=== PATIENT | male | born 1970 | race Caucasian/White ===

== ENCOUNTER 2018-06-21 00:36 | Outpatient (CLI) | payer BC, SELFPAY ==
[2018-06-21] MEDS: Omnipaque 350 MG/ML 100 ML BTL IJ (10:08)
[2018-06-21] MEDS: Omnipaque 350 MG/ML 50 ML BTL IJ (10:09)
[2018-06-21] MEDS: Breeza Beverage 473 ML BTL PO ×2 (10:09)
--- NOTE | 2018-06-21 10:14 | DI.CT_ITS ---
SYMPTOM/DIAGNOSIS: RECTAL CA, STAGING EXAM, C20 CHEST, ABDOMEN AND PELVIC CT: CT examination of the chest, abdomen and pelvis was performed with a bolus infusion of 100 cc's of Omnipaque 350 and ingestion of dilute barium. Biphasic hepatic imaging was obtained. The lungs are clear. No pleural effusion. No mediastinal or hilar adenopathy. No evidence of pulmonary embolic disease or other major vascular abnormality of the thorax. No supraclavicular or axillary adenopathy is omar. Liver and spleen appear normal as does the pancreas. No biliary dilatation or gallbladder abnormality is seen. Adrenals and kidneys appear normal. No hydronephrosis or nephrolithiasis. Abdominal aorta is of normal diameter and no major vascular abnormality is identified. No abdominal or pelvic adenopathy is seen. The patient reportedly has a history of rectal carcinoma. There is increased fat attenuation in the pelvis, particularly in the periprostatic fat and there is apparent increased vascular prominence in this area as well. Correlation requested regarding radiotherapy or recent prostatic procedure. Urinary bladder is thick walled and irregular raising the possibility of cystitis. Question eccentric wall thickening of the rectum which may represent the patient 's reported rectal lesion. Small fat containing bilateral inguinal hernias noted. No bony lesion identified on scanning of the chest, abdomen or pelvis. CONCLUSION: 1. No evidence of remote metastatic disease in a patient with reported rectal carcinoma. 2. Apparent pelvic hyperemia with very prominent small vessels in the pelvis, particularly adjacent to the prostate and urinary bladder. Urinary bladder wall thickening noted. Correlation requested regarding inflammatory process of the prostatovesical region or previous radiotherapy.
== END 2018-06-21 00:56 ==
PROVIDERS: PCP Family Medicine; Visit Provider Internal Medicine Hematology & Oncology
DX: C20 Malignant neoplasm of rectum (principal); Z12.9 Encounter for screening for malignant neoplasm, site unspecified; N32.89 Other specified disorders of bladder
CPT/HCPCS: 74177; 71260; J3490; Q9967

== ENCOUNTER 2018-07-02 08:27 | Outpatient (CLI) | payer BC, SELFPAY ==
[2018-07-02 11:17] LABS: Abs Immature Grans 0.01 k/cumm (0.0-0.09); Absolute Basophil Count 0.03 k/cumm (0.0-0.2); Absolute Eosinophil Count 0.39 k/cumm (0.0-0.7); Absolute Lymphocyte Count 1.42 k/cumm (1.2-3.4); Absolute Monocyte Count 0.46 k/cumm (0.11-0.7); Absolute Neutrophil Count 4.65 k/cumm (1.2-6.7); Basophils % 0.4; Eosinophils % 5.6; HCT 46.6 % (40.0-50.0); HGB 15.9 g/dL (13.5-17.5); Immature Grans % 0.1; Lymphocytes % 20.4; Mean Corp. HGB Concentration 34.1 g/dL (32.0-36.0); Mean Corpuscular Hemoglobin 31.7 pg (27.0-33.0); Mean Corpuscular Volume 92.8 fL (80-95); Mean Platelet Volume 10.3 fL (8.0-11.0); Monocytes % 6.6; Neutrophils % 66.9; Platelet Count 258 x1000/uL (130-400); RBC 5.02 m/cumm (4.50-6.00); RBC Distribution Width 12.9 % (11.8-14.1); White Blood Cell Count 6.96 k/cumm (4.4-10.8)
[2018-07-02 11:24] LABS: ALT 58 U/L (12-78); AST 23 U/L (15-37); Albumin 3.8 g/dL (3.4-5.0); Alkaline Phosphatase 84 U/L (46-116); Anion Gap 8.4 mmol/L (3-11); BUN 13 mg/dL (7-18); Bilirubin, Total 0.6 mg/dL (0.2-1.0); CO2 28.6 mmol/L (21.0-32.0); Calcium 8.8 mg/dL (8.5-10.1); Chloride 102 mmol/L (98-107); Glucose 101 mg/dL (70-100); Sodium 139 mmol/L (136-145); Total Protein 7.2 g/dL (6.4-8.2)
[2018-07-03 09:52] LABS: CEA 0.8 ng/ml
== END 2018-07-02 08:47 ==
PROVIDERS: PCP Family Medicine; Visit Provider Internal Medicine Hematology & Oncology
DX: C20 Malignant neoplasm of rectum (principal)
CPT/HCPCS: 36415; 80053; 82378; 85025

== ENCOUNTER 2019-12-19 00:24 | Outpatient (CLI) | payer OTHER, SELFPAY ==
--- NOTE | 2019-12-19 06:51 | DI.CT_ITS ---
EXAM: CT CHEST/ABD/PEL W CLINICAL HISTORY: COLON CA WITH LYMPHADENOPATHY CHEST/ABD ON CT, C18.9, R59..0, R93.89, ABNL CHEST C T. TECHNIQUE: Imaging Protocol: Axial computed tomography images with coronal and sagittal reformatted images were created and reviewed CONTRAST MATERIAL: Intravenous: Omnipaque 350 Contrast volume:100 ml Oral: yes / COMPARISON: CT ABDOMEN/PELVIS from 10/09/2019 CT CHEST from 10/09/2019 FINDINGS: CHEST: Mediastinum and Elenita: There has been considerable interval decrease in size of previously noted hilar and mediastinal adenopathy when compared with the previous exam. The largest node is in the subcari nal region measuring 2 x 2.8 cm compared with 2.6 x 3.1 cm on the previous exam. Pulmonary parenchyma: No consolidation or dominant measurable mass. Pleura: No effusion or pneumothorax. Aorta: Thoracic portion non-dilated. Heart: Nondilated. Bones: No destructive bony lesions. ABDOMEN: Liver: Mild fatty infiltration. No measurable mass. Gallbladder and biliary tract: No radiodense calculus or dilation. Pancreas: Normal density, no abnormal calcifications or inflammatory process. Spleen: Normal. Kidneys: Normal size, contour and axis. No radiodense stones or obstructive uropathy. No masses seen. Adrenal glands: No masses seen. Aorta: Abdominal portion non-dilated. Lymph nodes: There has been slight interval decrease in size of previously noted lymph nodes at the c eliac axis, the largest measuring 15 by 9.5 millimeters compared to 20 x 11 millimeters. PELVIS: Bladder: Symmetric distention, no gross wall thickening. Bowel: No obstruction or bowel wall thickening. No visible mass. Peritoneal cavity: No ascites, collection or mesenteric inflammatory response. Bones: Within normal limits. Reproductive organs: Mildly enlarged prostate. Bilateral fatty containing inguinal hernias. IMPRESSION: Significant interval decrease in size of previously noted hilar and mediastinal adenopathy. Mild int erval decrease in size of adenopathy near the level of the celiac axis. No new sites of metastatic d isease. RADIATION DOSE DELIVERED: Total DLP DATA REPOSITORY: All CT scans at this facility are submitted to the National Radiology Data Registry (NRDR) Dose Index Registry (DIR) with the [employer] (ACR). RADIATION OPTIMIZATION: All CT scans at this facility use at least one of these dose optimization te chniques: automated exposure control; mA and/or kV adjustment per patient size (includes targeted exa ms where dose is matched to clinical indication); or iterative reconstruction.
[2019-12-19] MEDS: Omnipaque 350 MG/ML 100 ML BTL IJ (09:17)
[2019-12-19] MEDS: Normal Saline - Diluent 50 ML VIAL IV (09:28)
== END 2019-12-19 00:44 ==
PROVIDERS: PCP Family Medicine; Visit Provider Family Medicine
DX: C18.9 Malignant neoplasm of colon, unspecified (principal); R59.0 Localized enlarged lymph nodes; R93.89 Abnormal findings on diagnostic imaging of other specified body structures; K76.0 Fatty (change of) liver, not elsewhere classified; N40.0 Benign prostatic hyperplasia without lower urinary tract symptoms
CPT/HCPCS: 74177; 71260; J3490

== ENCOUNTER 2021-09-24 04:23 | Outpatient (CLI) | payer BC, SELFPAY ==
[2021-09-24 09:12] LABS: Calculated LDL 188 mg/dL (<100); Cholesterol 254 mg/dL (<200); HDL Cholesterol 41 mg/dL (40-60); Triglyceride 129 mg/dL (<150)
[2021-09-27 11:12] LABS: HIV-1/2 Ag & Ab Screen Negative (Negative)
[2021-09-27 11:39] LABS: Hepatitis C Ab w Rflx HCV PCR Negative (Negative)
== END 2021-09-24 04:24 | disposition home or self-care (01) ==
LOC: LBO 04:23
PROVIDERS: PCP Family Medicine; Visit Provider Family Medicine
DX: K40.90 Unilateral inguinal hernia, without obstruction or gangrene, not specified as recurrent (principal); K42.9 Umbilical hernia without obstruction or gangrene; Z11.4 Encounter for screening for human immunodeficiency virus [HIV]; Z00.00 Encounter for general adult medical examination without abnormal findings; Z11.59 Encounter for screening for other viral diseases
CPT/HCPCS: 36415; 80061; 86803; 87389

== ENCOUNTER 2023-12-12 06:28 | Day surgery (SDC) | payer BC, SELFPAY ==
--- NOTE | 2023-12-11 12:43 | HPE_ITS ---
Date of service: 12/12/23 Time of Service: 07:33 Assessment and Plan Assessment and plan (1) Elevated BP without diagnosis of hypertension: Status: Acute (2) Hyperlipemia, mixed: Status: Acute (3) Umbilical hernia without obstruction and without gangrene: Status: Chronic (4) Right inguinal hernia: Status: Chronic Assessment and plan: Risks of the surgery include but are not limited to: Bleeding/infection/pneumonia/damage to blood vessels or bladder or?bowels/blood clots or PE/chronic pain/urinary retention/chronic numbness/reoccurrence/reaction to mesh requiring removal/damage to testicle or sterility/complications of anesthesia.?We also discussed the possibility of postop urinary retention or bruising. ?The pt will have a pre-Op PE to ensure fitness for anesthesia, and preOp cardiac testing as deemed necessary. ?The procedure will be done with abx and under sterile conditions. This is an outpt day surgery.? ??The pt requires a ride home from surgery and someone to stay with the pt for 24 hrs after anesthesia.? No lifting over 5 pounds for 2-3 weeks after surgery.? Also take Miralax postop to avoid constipation. (5) Hx of malignant neoplasm of rectum: History of Present Illness Narrative: Patient is here today for umbilical and right inguinal hernia.? They not having any chest pain or shortness of breath, currently.? They are not experiencing any fever or chills.? They deny any productive cough or upper respiratory tract infection signs or symptoms.? They are not having abdominal pain, or nausea and vomiting.? They have not had any changes in medications, past medical history or past surgical history since previously being seen in the office. They have not had any accidents or have been in the ER since the clinic pre-operative evaluation. ??I reviewed the procedure with the patient today, including risks and benefits of the procedure, and what they could expect at home for recovery.? All questions are answered to the patient?s satisfaction today, and they are stable to proceed with the proposed procedure. (1) Hernia: (2) Hyperlipemia, mixed: (3) Elevated BP without diagnosis of hypertension: (4) Right inguinal hernia: (5) Umbilical hernia without obstruction and without gangrene: (6) Hx of malignant neoplasm of rectum: I discussed the nature of inguinal hernias with the pt and how they form, and consequences of incarceration.? We discussed the warning signs of incarcerations (Severe pain/hardness and inability to reduce the hernia/vomiting/redness and fever) ?and when/how to seek medical attention (our office/PCP or ED).? ?I discussed the surgery in detail and the complications related to the surgery and the anesthesia.? I do recommend that the pt have a nerve block for postop pain control.? We also discussed multi-modality pain management.? Pt. expressed understanding; all questions were answered to the patient satisfaction and they do wish to proceed with surgery.? Patient was given an educational booklet & and a copy of the postop instructions and expressed understanding of how to care for themselves after surgery. Risks of the surgery include but are not limited to: Bleeding/infection/pneumonia/damage to blood vessels or bladder or?bowels/blood clots or PE/chronic pain/urinary retention/chronic numbness/reoccurren ce/reaction to mesh requiring removal/damage to testicle or sterility/complications of anesthesia.?We also discussed the possibility of postop urinary retention or bruising. ?The pt will have a pre-Op PE to ensure fitness for anesthesia, and preOp cardiac testing as deemed necessary. ?The procedure will be done with abx and under sterile conditions. This is an outpt day surgery.? ??The pt requires a ride home from surgery and someone to stay with the pt for 24 hrs after anesthesia.? No lifting over 5 pounds for 2-3 weeks after surgery.? Also take Miralax postop to avoid constipation. (7) History of rectal surgery: - Pt f/u closely w/ Delfina RN: Pt states he was seen about a year ago for RIH, now has umbilical one also. RIH is not bothering, the umbilical one currently he has not pain but has had 2 times that he had pain and pushed it back in. CT 2019: DORIAN: Bladder: Symmetric distention, no gross wall thickening. Bowel: No obstruction or bowel wall thickening. No visible mass. Peritoneal cavity: No ascites, collection or mesenteric inflammatory response. Bones: Within normal limits. Reproductive organs: Mildly enlarged prostate. Bilateral fatty containing inguinal hernias. Surgical consult 2021 Mr. Pitt is a very pleasant 51-year-old gentleman who is here today because he has a right inguinal hernia as well as an umbilical hernia which has been causing him some discomfort. He noticed them first back in 2018. At that time he was also diagnosed with rectal cancer. He underwent transanal resection x2 and has done very well. He has not needed chemo or radiation. Because of his rectal cancer the inguinal hernia and umbilical hernia issues were postponed. 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 He does have to do some lifting of tires and equipment which is quite heavy. He can feel the hernia especially when he is going to the bathroom and he is a little constipated. He has not had any changes in bowel habits. He has had no urinary symptoms. Patient is here today for follow-up from his surgical consult in 2021. I did review his CT from 2019. Again he was diagnosed with rectal cancer and underwent transanal resection and treatment down at [facility]. He continues to follow-up therefore ongoing treatment. He has a bilateral inguinal and umbilical hernia. Twice this year he has noted pain at the umbilical site. This has soft and easily reduced. Occasionally he will notice pain at the right inguinal hernia. There is a slight bulge in both the right inguinal and at the umbilical hernia sites. The left side has been completely asymptomatic. He has never had any hernia surgery in the past. He is is not on steroids. He is not a smoker. He is not diabetic. He had no problems with anesthesia with any of his surgeries. He has never had a heart attack or a stroke. Review of Systems All systems reviewed & are unremarkable except as noted in HPI and below PFSH All Active Problems Nasal congestion (Acute) Lymphedema of face due to acne vulgaris (Acute) Nasal polyps (Acute) Hyperlipemia, mixed (Acute) Elevated BP without diagnosis of hypertension (Acute) Right inguinal hernia (Chronic) Umbilical hernia without obstruction and without gangrene (Chronic) Medical History Rosacea, acne FH: prostate cancer Hx of malignant neoplasm of rectum (~2018) stage 2, treated with surgery only, [facility] History of rectal surgery s/p transrectal excision x2 Nasal Polpectomy Family History Mother Stroke Hypertension Father Hyperlipidemia Prostate cancer Brother Stroke Maternal Grandmother Stroke Social History (Updated 10/07/23 @ 09:33 by Columba Garza) Smoking/Tobacco Use Status: Never Second Hand Exposure: Yes Smoking risk assessment performed?: Yes Alcohol Intake: current Alcohol Intake frequency: a few times a week Alcohol type: beer, wine and hard liquor Drug use: Rarely Substance use type: marijuana Adopted: No Caregiver/Support person: No Foster care: No Household members: spouse, family and children Housing: house Number of Children: 1 Communication Needs: Corrective Lenses Education Level: college Do you need help understanding health information?: Rarely 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 [employer] Pets and animals: Yes Pets and animals: cat(s), dog(s) and farm animals Sexually active: Yes Do you think of yourself as: straight/heterosexual Current gender identity: male What is your relationship status?: How often do you talk on the phone with friends or family?: three or more times per week How often do you get together with friends or relatives?: twice per week How often do you attend orthodox or mormonism services?: 1-3 times per year Do you belong to any clubs or organized social groups?: yes Panel score (0-1 are the most socially isolated patients): 3 What type of physical activity do you participate in: walking, weight lifting and other Details: Hiking Duration: 45-60 minutes/day Frequency: daily Deisy/Christianity: Non druze Special deisy needs: No Seatbelt use: always Helmet use: Yes Helmet use: always Drive intox or ride w/intox gas truck driver: No Firearms in home: Yes Firearms unloaded and locked: Yes Do you feel safe at home: Yes Do you feel safe in your relationship?: Yes Victim of physical abuse: No Victim of emotional abuse: No Victim of sexual abuse: No Meds Allergies and Home Medications Allergies Allergy/AdvReac Type Severity Reaction Status Date / Time No Known Allergies Allergy Verified 12/12/23 06:44 Home Medications Medication Instructions Recorded Confirmed Type benzoyl peroxide 7 % topical 1 applic topical BID #473 mL 10/13/23 12/12/23 Rx cleanser celecoxib 100 mg capsule (Celebrex) 100 mg PO Q12H PRN PRN #20 caps 12/11/23 Rx tramadol 50 mg tablet 50 mg PO Q4H PRN #14 tabs 12/11/23 Rx Exam Narrative Exam Narrative: PHYSICAL EXAM GENERAL APPEARANCE: Alert, healthy appearance, oriented, x 3,? in no acute distress HYDRATION: Well hydrated HEAD, EYES, EARS, NECK, THROAT: Head is normocephalic, pupils equal, round, reactive to light and accommodation, ocular movement intact, sclera clear and no jaundice. ?Dentition intact. LUNGS: normal respiration/normal chest excursion. ?Clear to auscultation bilaterally. ?No wheeze. ?HEART: Regular rate and rhythm. no murmurs EXTREMITY: No edema or cyanosis.? no leg pain, redness, swelling.? ABDOMEN: soft and non-tender to palpation.? Normal bowel sounds.? small umbilicla hernia Right inguinal hernia Time Spent Time spent with Patient: <40 minutes Time was spent: preparing to see the patient(eg.review tests), obtaining and/or reviewing separately otained hiistory, ordering medications,tests, procedures, referring, communicating with other health career development director, indepentently interpreting results, counseling the patient and care coordination
--- NOTE | 2023-12-11 12:47 | PDOC.DSDIS_ITS ---
Date of service: 12/12/23 Time of Service: 09:38 Discharge Plan Disposition Patient Disposition: Home Condition: Good Discharge Details Reason For Visit: umbilical and right inguinal hernia reapir Attending Provider: Karin Pepe Primary Care Provider: Yaima Contreras Home Meds and New Rx's Prescriptions: New celecoxib [Celebrex] 100 mg capsule 100 mg PO Q12H PRN PRNQty: 20 0RF tramadol 50 mg tablet 50 mg PO Q4H PRNQty: 14 0RF Continued benzoyl peroxide 7 % cleanser 1 applic topical BID Qty: 473 0RF Rx Instructions: lather on wet skin; leave on for 10-20 seconds; rinse Discharge Instructions Additional Instructions: HERNIA REPAIR ? POSTOPERATIVE INSTRUCTIONS Patients who have this type of surgery can usually be expected to return to work within two weeks and have minimal amounts of discomfort. ? ACTIVITY: The day of surgery should be spent resting. However, you can be up for short periods of time, I.E., going to the bathroom or kitchen. Avoid lifting or straining. On the day following surgery, you can be up and about as desired. ? LIFTING: Restrict your lifting to no more than five (5) pounds for two weeks after surgery. ??We will decide when you are done with restrictions and when you can return to work, at your follow-up appointment.? No sexual activity for two weeks.? ? DIET: There are no dietary restrictions following surgery. However, you may want to start with small amounts of liquids to avoid nausea the day of surgery. ? INCISION CARE: You will notice purple skin glue closing the incision.? Do not peel this off- it will wear off on its own.? After 24 hours you may shower. The dressing may be replaced for comfort, but is not necessary. ?An ice bag may be applied to the incision for 72 hours following surgery. ? SIGNS OF INFECTION: It is not unusual to have some black and blue discoloration of the skin around the incision, but also scrotum and penis.? ?It will slowly disappear. If you have any increased redness, drainage, fever (above 100 degrees), please contact your doctor for an examination. ? DISCOMFORT: You may expect to have some mild discomfort at the incision sight. If severe pain develops you should contact your doctor for further instructions. ? URINATION: Patients who have surgery occasionally have problems urinating. If you experience problems and are not able to urinate within 6 hours following your surgery, please call your doctor immediately or go to your nearest Emergency Room for evaluation. ? DRIVING: NO driving for three (3) days after surgery, or if you are still taking narcotic pain medication.? ? MEDICATIONS: Alternate Tylenol 1000mg by mouth every 8 hours and Ibuprofen 600mg every 6 hours. ?Make sure you take ibuprofen with food and not on an empty stomach. ?Take the Tylenol and ibuprofen or Celebrex continuously for the first 72hrs- not just when you have pain.? Use the tramadol for breakthrough pain/pain >7.? Use ICE!?? Twenty minutes on, and then off, continuously for the first 72hours. If you are taking narcotic pain medication, follow the instructions on the label and do not drive. Pain medications can make you very constipated. Make sure you are moving your bowels daily. If not, take Miralax or Milk of Magnesia.?? Anesthesia makes you very constipated.? Take a dose of milk of magnesia the morning after surgery. ? REPORT: Unusual swelling, severe pain, unresolved nausea, signs of infection, or difficulty in urination to your surgeon. Follow up in clinic with Dr. Pepe in 2 weeks.? [phone] Stand Alone Forms: Anesthesia Discharge InstSusan, Nyasia.Nerve Block Instructions Activity:: see above Remove Dressings/Wound Care:: 24 hours Shower/Bathe:: 24 hours Diet:: As Tolerated Discharge Orders Discharge Orders: Discharge Order (Routine); Ordered 12/11/23 Ordered By: Karin Pepe DS: Diagnosis Discharge Diagnosis (1) Elevated BP without diagnosis of hypertension: Status: Acute (2) Hyperlipemia, mixed: Status: Acute (3) Umbilical hernia without obstruction and without gangrene: Status: Chronic (4) Right inguinal hernia: Status: Chronic Asessment and Plan: The patient is doing well post-op from their umbilical and right inguinal hernia surgery.? They are having no nausea or vomiting. They are tolerating liquids and a snack. The pt is not having any chest pain or SOB.? Their pain is adequately controlled. They have been able to urinate.? ?HEENT:? no eye pain/drainage/redness/swelling. Mild sore throat ?Cardio- NSR, no chest pain, BP stable- see VS record ?Pulm: no sob or productive cough. No hemoptysis ?Incision- dressing is c/d/i w/ no excessive bleeding or drainage ?I discussed with the patient the findings at the time of surgery and the patient?s progress. ?We reviewed expectations at home; what the patient could expect for recovery time, and in the post-operative period.? We discussed the importance of walking to avoid blood clots and pneumonia.? We discussed and reviewed the patient's post-operative wound care and dressing needs.?? We reviewed their step-taylor pain management plan, Rx called to the pharmacy of their choice.? We reviewed ac tivity and limitations-see discharge instructions. We reviewed warning signs, and when to seek medical attention- see d/c instructions.?? Patient was given a postoperative follow-up appointment. Patient verbalized understanding of their postoperative instructions, how do to take care of themselves and their incision, and the pain management plan. Please see discharge instructions.? (5) Hx of malignant neoplasm of rectum:
--- NOTE | 2023-12-11 12:54 | ROE_ITS ---
Date of service: 12/12/23 Time of Service: 09:35 Operative Note Operative Note DATE OF PROCEDURE: 12/12/23 PRE-OP DIAGNOSIS: Umbilical and right inguinal hernias POST-OP DIAGNOSIS: same PROCEDURE: open repair umbilical and direct right inguinal hernia SURGEON: Karin Pepe WOOL WASHER: Nanda Camp ANESTHESIA TYPE: Local By Surgeon and Primary Nerve Block Refer to Anesthesia Record ESTIMATED BLOOD LOSS: 5 PATHOLOGY: none sent COMPLICATIONS: None Patient was transported to: PACU Patient's condition: stable Implants: see RN notes Procedure Description: INDICATIONS: The patient is seen at the request of for symptomatic umbilical hernia and is here today for repair. 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 DESCRIPTION OF PROCEDURE: The patient was brought to the operating suite and placed in supine position. Anesthesia was administered per the Department of Anesthesia. Patient prepped and draped in the usual sterile fashion using ChloraPrep scrub solution. IV antibiotics were administered. Pause for the cause was done. A 2-inch incision was made in the inferiorly to the umbilicus. Umbilicus was dissected off the fascia. The fascia was dissected off from surrounding tissue. There is omentum protruding. This was returned to the abdomen. It is not infarcted. The defect is 2 cm in size. A small Kerlix/Ventrilux patch was then placed in the defect, the defect was closed, oversewn with 2-0 vicryl and was copiously irrigated. Deep tissue was approximated with 3-0 Vicryl and skin was approximated with 4-0 Monocryl in a running subcuticular fashion. Skin glue and sterile dressings are applied 30 mL of .25% Marcaine w/ epinephrine was used for local anesthetization- 10 on the umbilical and 20 on the inguinal. A #10 blade was used to make an incision over the external ring. Electrocautery used to provide hemostasis and dissect down to the fascia. The fascia was intact. A [place] is used to open the internal ring. The nerve is dissected out of the incision. The cord is elevated. There is a large cord lipomas. This is tied off and ligated. ? Electro-cautery is used to provide hemostasis. A Amandeep drain was placed around the cord to assist in mobilization. The cord was explored. There was no hernia sac on the cord. There is a small direct hernia sac is pushing through the floor. The transversalis in this area is pretty much obliterated. The sac is elevated and scored and inverted. A small size mesh plug was then placed into the defect and sewn into transversalis, using 2-0 vicryl. ?The patch was then placed on the floor, and sewn in using 2-0 Vicryl; onto the pubic tubercle, and the shelving portions of the inguinal ligament, in the standard Dain fashion. The tails of the mesh patch are brought around the cord and sewn together with 2-0 Vicryl, and tacked under the external oblique.? The wound was copiously irrigated. There was no bleeding noted. The drain was removed. ?All structures are returned to normal anatomical position. The nerve is out of the way of the suturing and not caught w/ in any sutures or the mesh.? The external oblique is re-approximated using 2-0 vicryl in a running fashion.? ?Deep tissue was approximated with 3-0 Vicryl and skin was approximated with 4-0 Monocryl in a running subcuticular fashion. Skin glue sterile dressings are applied. The patient tolerated the procedure without complications to recovery in stable condition.
[2023-12-12] VITALS (10 sets, daily range): BP systolic 87–126; BP diastolic 55–106; PULSE 53–75; RESP 16–22; TEMP 35.8–36.5; O2SAT 89–97; BMI 29.7
--- NOTE | 2023-12-12 06:52 | W.ANESPRE ---
General Info Date of Service Date Performed: 12/12/23 Height: 6 ft Weight: 99.5 kg Body Mass Index (BMI): 29.7 Surgical Procedure: Operation Date: 12/12/23 07:40 Proposed Procedure Side Surgeon p Herniorrhaphy Inguinal & Umbilical w/Mesh Right Karin Lozano DO Afshin Pre-Op Diagnosis Post-Op Diagnosis Right inguinal hernia: Umbilical hernia without obstruction and without gangrene: Meds Allergies and Home Medications Allergies Allergy/AdvReac Type Severity Reaction Status Date / Time No Known Allergies Allergy Verified 12/12/23 06:44 Home Medication Medication Instructions Recorded benzoyl peroxide 7 % topical 1 applic topical BID #473 mL 10/13/23 cleanser celecoxib 100 mg capsule (Celebrex) 100 mg PO Q12H PRN PRN #20 caps 12/11/23 tramadol 50 mg tablet 50 mg PO Q4H PRN #14 tabs 12/11/23 Current Visit Medications: Current Medications Generic Name Dose Route Start Last Admin Trade Name Freq PRN Reason Stop Dose Admin Acetaminophen 1,000 mg 12/12/23 06:00 Acetaminophen 500 Mg Tab PO 12/12/23 23:59 PREOP RAFFY Gabapentin 600 mg 12/12/23 06:00 Gabapentin 300 Mg Cap PO 12/12/23 23:59 PREOP RAFFY Ondansetron HCl 4 mg/ Sodium 52 mls @ 200 mls/hr 12/11/23 13:05 Chloride IVPB 01/10/24 13:04 Q6H PRN PRN Ringer's Solution 1,000 mls @ 80 mls/hr 12/12/23 06:00 IV 12/12/23 23:59 INFUSION RAFFY Cefazolin Sodium/Dextrose 2 gm in 50 mls @ 100 mls/hr 12/12/23 06:00 Ancef Duplex IVPB 12/12/23 23:59 PREOP RAFFY IV Miscellaneous Supplies 1 each 12/12/23 06:00 Iv Access IV 12/12/23 23:59 DIRECTED RAFFY Morphine Sulfate 2 mg 12/11/23 13:05 Morphine 4 Mg/Ml Syr IVP 01/10/24 13:04 Q1H PRN PRN Sodium Chloride 0 ml 12/12/23 06:00 Normal Saline Flush 10 Ml Syr IV 12/12/23 23:59 PRN PRN Sodium Chloride 0 ml 12/12/23 06:00 Normal Saline 10 Ml Vial IJ 12/12/23 23:59 DIRECTED PRN Sterile Water 0 ml 12/12/23 06:00 Water,Injection,Sterile 10 Ml Vial IJ 12/12/23 23:59 DIRECTED PRN Tramadol HCl 50 mg 12/11/23 13:05 Tramadol 50 Mg Tab PO 01/10/24 13:04 Q6H PRN PRN Pain PFSH Active Problems Active Problems: Problem Status Onset Code Nasal congestion R09.81 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.0, L70.0 Nasal polyps J33.9 Hyperlipemia, mixed E78.2 Elevated BP without diagnosis of hypertension R03.0 Right inguinal hernia K40.90 Umbilical hernia without obstruction and without gangrene K42.9 Medical History Medical History oswaldo Kennedy FH: prostate cancer 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, treated with surgery only, [facility] Surgical History History of rectal surgery s/p transrectal excision x2 Nasal Polpectomy Tobacco Smoking/Tobacco Use Status: Never Passive smoking exposure: Yes Second hand exposure: Yes Alcohol Alcohol Intake: current Alcohol intake frequency: a few times a week Alcohol type: beer, wine and hard liquor Substance Use Substance use: Rarely Substance use type: marijuana Vital Signs and Lab Results Vital Signs Most Recent Vital Signs in EMR: Most Recent Vital Signs Temp Pulse Resp BP Pulse Ox 36.5 C 75 16 126/106 H 97 12/12/23 06:30 12/12/23 06:30 12/12/23 06:30 12/12/23 06:30 12/12/23 06:30 Lab Results Blood Type / Crossmatch: No Data to Display Complete Blood Count: No Data to Display Complete Metabolic Panel: No Data to Display Liver Function Panel: No Data to Display Coagulation Panel: No Data to Display Cardiac Panel: No Data to Display Arterial Blood Gas: No Data to Display Venous Blood Gas: No Data to Display Pancreas Panel: No Data to Display Thyroid Panel: No Data to Display Infectious Disease: No Data to Display Blood Cultures: No Data to Display Toxicology Panel: No Data to Display Anesthesia Assessment and Plan Anesthesia History Personal History: No History of Anesthesia Complications Family History: No Family History of Anesthesia Complications Exercise Tolerance Exercise Tolerance: Metabolic Equivalents>4 Pertinent Negatives Pertinent Negatives: No Symptoms of GERD, No Major Cardiovascular Symptoms or Complaints, No Major Pulmonary Symptoms or Complaints and No History of CVA/TIA Cardiac & Pulmonary Exam Cardiac Exam: Normal S1/S2 Heart Sounds Pulmonary Exam: Clear Bilateral Breath Sounds Implantable Cardiac Device Does patient have a Pacemaker or an ICD?: No Airway Exam Known Difficult Airway: No Mallampati Class: 3 Mouth Opening: Normal (> 3cm) Thyromental Distance: Greater than 3 cm Facial Hair: Full Ding Neck Range of Motion: Full ROM Neck Circumference: Normal Teeth Condition: Normal Dentition ASA Classification ASA Score: ASA 2 Emergency Case?: No NPO Status NPO Status: NPO Clears >2 hours, Solids >8 hours Anesthesia Plan Resuscitation Status: Full Code Anesthesia Technique: General Anesthesia Airway Planned: Endotracheal Tube Pain Management: Surgeon and patient request nerve block Monitors Used: Standard Monitors and SedLine
[2023-12-12] MEDS: Lactated Ringers 1,000 ML 80 ML IV (06:56)
[2023-12-12] MEDS: Gabapentin 300 MG CAP 600 MG PO (06:57)
[2023-12-12] MEDS: Acetaminophen 500 MG TAB 1000 MG PO (06:57)
[2023-12-12] MEDS: ceFAZolin 2 GM/50 ML BAG IVPB (07:46)
--- NOTE | 2023-12-12 08:55 | W.ANESNERVE ---
Nerve Block Single Injection Procedure Date and Time Date Performed: 12/12/23 Procedure Start: 07:58 Location Where Procedure Performed Procedure Location: Operating Room Procedure Stop: 08:08 Reason Performed: Postoperative Analgesia Requesting Provider: Karin Pepe Timeout Performed Timeout Performed: Yes Monitoring Used ECG, Blood Pressure, SpO2, ETCO2 and See EMR for corresponding vital signs Sterility Sterility: Hand Hygiene, Surgical Cap, Surgical Mask, Sterile Gloves and Chlorhexidine Sedation Given During Procedure Sedation Given (Indicate Dose Given): No Sedation given Patient Mental Status Patient Mental Status: Performed under general anesthesia Nerve Block 1st Nerve Block: Laterality: Right Block Type: TAP Unilateral Ultrasound Image Saved?: Yes Needle / Catheter Used: 100mm SonoPlex II Local Anesthetic Bolus (Indicate Dose Given): Injected in 3-5ml increments after negative blood aspiration, Bupivacaine 0.25% Dose:: 20mL and Exparel Dose:: 10mL Additives (Indicate Dose Given): None Ultrasound: Sterile probe cover and gel used Nerve Stimulator: Not Used Paresthesia: None Procedure Tolerated: No Complications and Patient tolerated well Procedure Outcome: Successful Performed By: Esther Carney Supervised By: Carmelo Cope
--- NOTE | 2023-12-12 11:12 | W.ANESPOSTOP ---
Postoperative Evaluation Date, Time and Location Date Performed: 12/12/23 Time Performed: 11:12 Patient Location: Day Surgery Unit Vital Signs Most Recent Imported Vital Signs: Most Recent Vital Signs Temp Pulse Resp BP Pulse Ox 36 C L 55 L 17 103/79 95 12/12/23 10:45 12/12/23 10:45 12/12/23 10:45 12/12/23 10:45 12/12/23 10:45 Pain Score Most Recent Pain Score: Most Recent Pain Score Pain Level 4 12/12/23 10:45 Assessment Mental Status: Awake (Alert & Oriented to Patient Baseline) Airway and Respiratory Function: Patent airway with normal (patient baseline) respiratory exam Cardiovascular Function: Hemodynamically Stable Hydration Status: Adequately Hydrated Nausea & Vomiting: No Nausea or Vomiting Pain: Pain is tolerable per patient Peripheral Nerve Block: Regional nerve block not resolved at time of post operative discharge
== END 2023-12-12 12:30 | disposition home or self-care (01) ==
PROVIDERS: PCP Family Medicine; Visit Provider Surgery
PROC: (CPT 49505; principal; 2023-12-12 07:30)
DX: K40.90 Unilateral inguinal hernia, without obstruction or gangrene, not specified as recurrent; K42.9 Umbilical hernia without obstruction or gangrene; D17.6 Benign lipomatous neoplasm of spermatic cord; E78.5 Hyperlipidemia, unspecified; Z85.048 Personal history of other malignant neoplasm of rectum, rectosigmoid junction, and anus
CPT/HCPCS: 49505; 49591; 55520; 76942; C1781; C9290; J0665; J0690; J1100; J1885; J2001; J2371; J2405; J2704

== ENCOUNTER 2024-03-08 14:12 | Outpatient (CLI) | payer BC, SELFPAY ==
[2024-03-08 12:51] LABS: ALT 52 U/L (16-63); AST 24 U/L (15-37); Albumin 3.9 g/dL (3.4-5.0); Alkaline Phosphatase 98 U/L (46-116); Anion Gap 8.2 mmol/L (3-11); BUN 13 mg/dL (7-18); Bilirubin, Total 0.93 mg/dL (0.2-1.0); CO2 27.8 mmol/L (21.0-32.0); CREATININE 1.3 mg/dL (0.70-1.30); Calculated LDL 163 mg/dL (<100); Chloride 104 mmol/L (98-107); Cholesterol 249 mg/dL (<200); Estimated GFR 66.51 (mL/min/1.73m2); Glucose 101 mg/dL (74-106); HDL Cholesterol 47 mg/dL (40-60); Sodium 140 mmol/L (136-145); Total Protein 7.3 g/dL (6.4-8.2); Triglyceride 195 mg/dL (<150)
--- OUTSIDE RECORDS SUMMARY | 2024-03-08 14:22 | XMS_ITS | Encounter Summary ---
Author Organization [facility] [place] [address] Care Team Providers Care Engagement Quality Consultant Name Role Phone LisandroVickie zarate MARIAM Primary Care Provider [phone] Encounter Details Date Type Department Care Team (Latest Contact Info) Description 06/21/2018 7:37 PM EDT - 06/21/2018 11:59 PM EDT Hospital Encounter [place] [id number] Bright Zamorano MD [facility] [place] [address] Discharge Disposition: Home Social History Tobacco Use Types Packs/Day Years Used Date Smoking Tobacco: Never Smokeless Tobacco: Never Sex and Gender Information Value Date Recorded Sex Assigned at Not on file Gender Identity Not on file Sexual Orientation Not on file documented as of this encounter Medications at Time of Discharge Medication Sig Dispensed Refills Start Date End Date CAPEcitabine (XELODA) chemo tablet Take with food. Take 1800 mg PO BID on days of radiation Call clinic before starting medication. The prescription should be filled with whatever strength the pharmacy has available to achieve the prescribed dose, preferably taking the smallest number of capsules/tablets prescribed. 56 Doses of treatment to dispense 06/15/2018 documented as of this encounter Plan of Treatment Not on file documented as of this encounter Goals Goal Patient Goal Type Associated Problems Recent Progress Patient-Stated? Author Home Medication Compliance and Understanding Patient Facing Action Plan No Tanya Angela, [facility] Note: To complete this round of 28 days of chemo radiation therapy and make it through surgery documented as of this encounter Procedures Procedure Name Priority Date/Time Associated Diagnosis Comments FILM LIBRARY STORAGE ONLY CT CHEST ABDOMEN PELVIS Routine 06/21/2018 7:[address] SCAN (SCAN) 06/21/2018 12:00 AM EDT documented in this encounter Results * Film Library- Storage Only CT Chest Abdomen Pelvis (06/21/2018 7:37 PM EDT) Narrative [facility] - 06/21/2018 7:37 PM EDT This exam is for storage only and is auto-finalizing. Bright Zamorano MD IMG FILM LIBRARY ORD ERABLES [place], [place] * SCAN DOC: CT SCAN (06/21/2018 12:00 AM EDT) Anatomical Region Laterality Modality SO Narrative 06/21/2018 12:00 AM EDT Ordered by an unspecified provider. Scanning Provider MEDIA MGR SCAN EXT O RDR/RSLT documented in this encounter Visit Diagnoses Not on filedocumented in this encounter Care Teams Engagement Quality Consultant Relationship Specialty Start Date End Date Vickie Wolf APRN [address] [place] [address] PCP - General Family Medicine 05/07/18 05/20/22 documented as of this encounter
--- OUTSIDE RECORDS SUMMARY | 2024-03-08 14:22 | XMS_ITS | Encounter Summary ---
Author Organization [facility] Address [facility] [place] [place] [address] Care Team Providers Care Quill Worker Name Role Phone LisandroVickie zarate MARIAM Primary Care Provider Reason for Referral * Consultation (Routine) - Duplicate Referral Specialty Diagnoses / Procedures Referred By Roselyn laurent Referred To Contact Radiation Oncology Diagnoses Rectal cancer Procedures Simulation for Radiation Therapy Planning PRG RADIATION THERAPY PLAN COMPLEX PRG SPECIAL RADIATION TREATMENT PRG RADIATION TREATMENT AID(S) COMPLX CHG RADN PHYSICS CONSULT SPECIAL PRG INTEN MOD RADIOTHER PLAN W/DOSE VOL HIST PRG RESPIRATORY MOTION MANAGEMENT PLANNING PRG MLC DEVICE INTENSTY MODUL RAD TX DSIGN/CONSTRCT PER IMRT PRG BASIC RADIATION DOSIMETRY CALCULATION PRO INTRA-FRACTION LOC & TRACKING TARGET, EA FRACTION CHG RADN PHYSICS CONSULT CONTINUING PRG RADIATION MANAGEMENT, 5 TREATMENTS RADIOLOGY PORT FILM(S) [id number] Georges Holly MD [address] [place] [place] [address] [place] [address] St Rad Onc Office [address] [place] [phone] Referral ID Status Reason Start Date Expiration Date Visits Requested Visits Authorized [id number] Duplicate Referral Consult, Test & Treat 8 06/25/2019 1 1 Reason for Visit * Consultation (Routine) - Closed Specialty Diagnoses / Procedures Referred By Contdeedee t Referred To Contact Radiation Oncology Diagnoses Rectal cancer Micha Reynolds MD [facility] [address] [place] [address] Georges Holly MD [address] [place] [address] [place] [address] Referral ID Status Reason Start Date Expiration Date V isits Requested Visits Authorized [id number] Closed Consult, Test & Treat 06/12/2018 06/12/2019 1 1 Encounter Details Date Type Department Care Team (Late st Contact Info) Description 06/25/2018 11:00 AM EDT Office Visit Radiation Oncology at [address] [phone] Georges Holly MD [address] [place] [place] [address] [place] [address] Rectal cancer Social History Tobacco Use Types Packs/Day Years Used Date Smoking Tobacco: Never Smokeless Tobacco: Never Alcohol Use Standard Drinks/Week Comments Yes 0 (1 standard drink = 0.6 oz pur e alcohol) Sex and Gender Information Value Date Recorded Sex Assigned at Not on file Gender Identity Not on file Sexual Orientation Not on file documented as of this encounter Last Filed Vital Signs Vital Sign Reading Time Taken Comments Blood Pressure 136/84 06/25/2018 11:00 AM EDT Pulse 72 06/25/2018 11:00 AM EDT Temperature 36.9 ??C (98.5 ??F) 06/25/2018 1 1:00 AM EDT Respiratory Rate 16 06/25/2018 11:0 0 AM EDT Oxygen Saturation 99% 06/25/2018 11: 00 AM EDT Inhaled Oxygen Concentration - - Weight 98.4 kg (217 lb) 06/25/2018 11:0 0 AM EDT with steel toed boots Height - - Body Mass Index 29.88 06/15/2018 1:01 PM EDT documented in this encounter Patient Instructions * Patient Instructions* Georges Holly MD - 06/25/2018 11:00 AM EDT Dear Mr. Pitt, Dr. Zamorano asked for me to see you to discuss how radiation therapy can be used to treat your rectal cancer and this note is to recap our discussion regarding use of radiation treatments. As your radiation oncologist, I work closely with your other healthcare providers and most importantly, with you to make sure that the treatments we discuss and offer keep your personal preferences and goals in mind. We discussed the following next steps as part of your cancer evaluation and/or treatment: ?? Rectal cancer radiation treatments - I agree with Dr. Zamorano and Rodolfo that standard therapy for rectal cancer involves a preoperative combination of chemotherapy and radiation followed by surgery. The reason for this is to shrink the rectal tumor to make surgery easier and decrease the chance of tumor coming back after the surgery. In some cases the tumor disappears completely after chemotherapy and radiation, and surgery can be delayed or even avoided. However, if there is still tumor after chemotherapy and radiation surgery would be strongly recommended. Mapping scan to plan your radiation treatments: Your radiation therapy will involve using high energy radiation which kills cancer but also normal healthy tissues. In order to make sure the radiation goes to the cancerous tissues and to also avoid radiating the normal tissues, we design radiationbeams beams into special shapes which come from various different directions. Because no two peopleand no two cancers are completely identical, the radiation plan we create for you will be unique toyou and your body. In order to figure out how many beams to use, how much radiation to give, which angles they should come from, and how they should be shaped, we have asked you to undergo a mapping scan here in our department known as a CT simulation, or CT sim, for short. This is essentially a CAT-scan similar to scans which you may have received before, but slightly different in a few ways: First, it allows us to place you in the exact same position which you should expect to be placed during each of your radiation treatment sessions. Second, it lets us better understand where the radiation targets and the normal tissues that we want to avoid exist, in relation to each other and the radiation beams. Following this scan, we then perform additional calculations and measurements to create the absolute best plan possible for you. Depending on the complexity of the plan, these processescan take from just few hours to several days, and for that we ask for your patience. If you have any questions about the planning process or your custom radiation plan, I would be more than happy to review the plan with you during your first week of treatment. I anticipate you will receive 28 treatments total, daily Monday-Monday for 5.5 weeks. Your start date and time will be provided once the simulation scan is completed. During your radiation treatments, you can expect to see me once per week so that I can examine you to make sure you are tolerating radiation treatments and so that we can monitor your response to treatment. If you need to see me any other day, one of my colleagues or I would be happy to see you - just ask one of the radiation therapists or radiation nurses for assistance. Side effects of treatment: We briefly discussed short term (temporary) side effects of treatment aswell as possible care home (late, permanent) side effects of radiation treatment. If they occur, short term side effects may include fatigue, rectal irritation (similar to hemorrhoids), or diarrhea. emt intermediate side effects may include permanent damage to the bowel or bladder. Any amount of radiationcan also increase the risk of developing a cancer later in life caused by radiation. This is a low but real risk, and it grows over time. We estimate that your risk of a radiation caused cancer growsby 1% over the general population risk for each 10 years you are alive. Please do not hesitate to call me at [phone] with any other questions or concerns you have. IfI am not here, one of our radiation oncology nurses can assist you or help you get in touch with me. A Radiation Oncology doctor is also construction electrician after our normal hours and on weekends for urgent questions or concerns related to radiation treatments that can not wait until normal business hours. To reach the on-call doctor after-hours, just call and have the single wire saw operator page the Radiation Oncologist construction electrician. And, as always, if you experience any life-threatening emergencies which any include the following,you need to seek emergency care immediately by calling 911: 1. Sudden and unexpected breathing difficulty without any exertion 2. Sudden onset of chest pain 3. Sudden onset of severe pain or uncontrolled pain 4. Sudden onset of severe weakness and/or unable to walk 5. Sudden new onset of a seizure 6. Fall resulting in injury 7. Uncontrollable bleeding Georges Hanna MD Analytics Analystprecision grinder Radiation Oncology [facility] documented in this encounter Progress Notes * Georges Holly MD - 06/25/2018 11:00 AM EDT Images from the original note were not included. Radiation Oncology Consult Note Georges Holly MD, MS [facility] [phone] PATIENT IDENTIFICATION: PATIENT NAME: Marcelo Pitt DATE OF : 1970 REFERRING PROVIDER: Micha Reynolds MD [facility] [address] [place] [address] REASON FOR CONSULTATION : Cancer Staging Rectal cancer Staging form: Colon And Rectum, AJCC 8th Edition - Clinical: Stage I (cT2, cN0, cM0) - Signed by Georges Holly MD on 06/13/2018 HISTORY OF PRESENT ILLNESS: Frederick is a 47-year-old male diagnosed with a rectal cancer in the setting of intermittent rectal bleeding. He had a colonoscopy on 03/27 that showed a low rectal mass to large for snare. Multiple biopsies with cold forceps showed hyperplastic polyp. He had a rectal MRI on 05/07 that showed a T1/2 rectal mass abutting the anal sphincter approximately 3.5 cm in length. He established care with Dr. Reynolds and underwent transanal excision on 05/11/18.Final pathology showed close deep resection margin, 2 mm from the tumor and a positive lateral margin. Dr. Reynolds was unable to resect further out of concern of injuring the adjacent sphincter. His case was discussed at GI tumor board and it was felt reasonable to consider definitive chemoradiation to avoid abdominoperineal resection. Marcelo met with Dr. Zamorano last week, and is prepared for concurrent chemoradiotherapy with concurrent capecitabine. He is here today to discuss the radiation portion of his proposed regimen. REVIEW OF SYSTEMS: On further questioning, he reports no further rectal bleeding or rectal pain. He has 2 soft BMs / day. He only reports hemorrhoids. A comprehensive 14 point review of systems was conducted with this patient and is otherwise negative except as documented above. This patient reported questionnaire isavailable for review in 'scanned documents.' PAST MEDICAL HISTORY History reviewed. No pertinent past medical history. Past Surgical History: Procedure Laterality Date ??? EXCISION RECTAL TUMOR, TRANSANAL APPROACH, FULL THICKNESS (WRVU 12.13) 05/11/2018 Performed by Micha Reynolds MD at [facility] MAIN OR ??? PRO EXC RECTAL TUMOR/TRANSANAL APPROACH; INCL MUSCULARIS PROPRIA 05/11/2018 EXCISION RECTAL TUMOR, TRANSANAL APPROACH, FULL THICKNESS (WRVU 12.13) performed by Rodrigo Reynolds MD at [facility] MAIN OR ??? SKIN BIOPSY BACK CONTRAINDICATIONS TO RADIATION THERAPY: None ?? Prior radiation therapy: No ?? Active Lupus: No ?? Systemic Scleroderma: No MEDICATIONS AND ALLERGIES: Medications 06/25/18 1128 Medication Sig Taking? CAPEcitabine (XELODA) chemo tablet Take with food. Take 1800 mg PO BID on days of radiation Call clinic before starting medication. The prescription should be filled with whatever strength the pharmacy has available to achieve the prescribed dose, preferably taking the smallest number of capsules/tablets prescribed. 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 Prostate Cancer Father PHYSICAL EXAM BP 136/84 Pulse 72 Temp 36.9 ??C (98.5 ??F) Resp 16 Wt 98.4 kg (217 lb) Comment: with steeltoed boots SpO2 99% BMI 29.88 kg/m?? General: alert, well appearing, and in no distress sitting in exam room with and father at side TODAY'S PERFORMANCE STATUS: KPS Score ECOG Grade Definition X 90-100 0 Fully active, able to carry on all pre-disease performance without restriction 70-80 1 Restricted in physically strenuous activity but ambulatory and able to carry out work of a light or sedentary nature, e.g., light house work, office work 50-60 2 Ambulatory and capable of all selfcare but unable to carry out any work activities; up and about more than 50% of waking hours 30-40 3 Capable of only limited selfcare; confined to bed or chair more than 50% of waking hours 10-20 4 Completely disabled; cannot carry on any selfcare; totally confined to bed or chair IMAGING REVIEW: MRI Pelvis 05/07/18 - T1/2 tumor - abuts anal sphincter 2-3cm from anal verge, no LAD Sole Rougher Images are shown below: PATHOLOGY REVIEW: Source: Transanal excision Provider / Location: Dr. Reynolds / [facility] [place] Date: 05/11/18 Histology / Grade Well differentiated adenocarcinoma (at least 0.5 cm) arising in an tubulovillous ??adenoma with high grade dysplasia, focally invading into submucosa (pT1). Other The deep resection margin is at least 0.2 cm away from the tumor. The lateral mucosal resection margin is focally involved by dysplasia. ASSESSMENT / PLAN: Marcelo is a 47-year-old man with a stage I distal rectal cancer that was resected with a positive margin on transanal excision. Further resection was deferred at the time to preserve sphincter integrity. Marcelo understands that the definitive treatment for early stage rectal cancer is surgery, and thatthe chemoradiation approach is being offered to avoid a permanent colostomy. I have reviewed the rationale for definitive chemoradiation for his rectal cancer today in clinic. I reviewed that for more locally advanced rectal cancers, we anticipate complete clinical response rates of 20-30%. I wouldexpect that his likelihood of a complete clinical response would be somewhat higher given his limited T stage at presentation and the fact that he has had a thorough debulking with only microscopicresidual disease remaining. However, I discussed and was clear with him today in clinic that shouldhe exhibit signs of residual disease at any point during a close surveillance for the next several years, he would need to have a salvage proctectomy with formation of a permanent colostomy. We also reviewed toxicities and complications associated with pelvic chemoradiation today in clinic. We discussed common acute side effects of fatigue, diarrhea, dysuria or cramping. There is a significant risk of perianal radiation dermatitis given the distal location of this tumor. If we were to p roceed with chemoradiation I would recommend that we use IMRT to maximally spare the uninvolved perineal skin. We also reviewed long-term possible complications of pelvic radiation. I reviewed with Marcelo that he is at increased risk for permanent damage to his bladder or rectum. In my mind given his relatively young age, the most significant risk he faces over his lifetime is an increased risk of radiation- induced malignancy, which may take shape of another colorectal primary, prostate cancer, bladder cancer or soft tissue sarcoma. I reviewed that should he develop any of these cancers or a new unrelated primary cancer, to undergo radiation now may complicate pelvic surgical or radiation treatment inthe future. Marcelo was a bit surprised by this, and asked me very pointedly how I would recommend that he proceed. I stated quite frankly that given his age, the uncertain effectiveness of chemoradiation, and risk of late complications of treatment, and the high likelihood of effectiveness of abdominoperineal resection, I would recommend definitive surgery. I stressed my concern regarding the potential worst case scenario - that we would proceed with chemoradiation, that the rectal cancer would recur and he would have a surgery anyways that results in a colostomy. Then, for him to experience radiation related complications which may include radiation induced malignancy within the next 40 or so years of his life would still remain a possibility. That said, I completely understand his motivation for avoiding colostomy, and am still willing to proceed with chemoradiation with Marcelo, so long as he understands the risks involved both now and in the distant future, which appears to be the case. Marcelo is planning on a second opinion at [facility] on 07/04. I agree with a second opinion in this complicated issue. I discussed that we would plan to perform a planning CT simulation the following week, after he has had some time to reflect on his second opinion. In the meantime I will put through for prior authorization for IMRT with the intent of maximum sparing perineal tissues. All of Marcelo's questions were answered to his fullest satisfaction, and we have provided him with our contact information should any further questions or concerns arise. SUMMARY OF PLAN / RECOMMENDATION: 1. Intent of therapy: Curative 2. Clinical Trial Availability: No 3. Await patient decision / 2nd opinion [facility] 07/04 4. Tenative simulation date 07/11 TIME ATTESTATION: At least 50 minutes of this 60 minute visit was spent with the patient [id number] reviewing his interval medical history and answering questions related to his rectal cancer. GEORGES HOLLY MD, MS * Migdalia Contreras RN - 06/25/2018 11:00 AM EDT RADIATION ONCOLOGY NURSING INITIAL NURSING ASSESSMENT IDENTIFICATION: Marcelo Pitt is a 47 y.o. year-old male with rectal ca, major rectal bleeding started 3 months ago. He thought was from hemorrhoids. Denies pain with BMS. Has 2 BMs per day, thatare soft in consistency. PRESENTING SYMPTOMS/CHIEF COMPLAINT: none today REVIEW OF SYSTEMS:See scanned documents for review of systems form that patient filled out while inclinic today. IN THE PAST 12 MONTHS HAVE YOU: Fallen more than one time? No Injured yourself as result of the fall? No Experienced difficulty with walking/problems with balance? No Do you use any assistive devices? NO Any history of collagen vascular diseases:no Any Implanted Devices/Hardware: no If yes please put alert in ARIA patient summary Prior Radiotherapy: No [x] Yes [] Site: Date: Physician/Location: Prior Chemotherapy: No [x] Yes [] Drug(s): Physician/Location: Date of last treatment: Prior Hormone Therapy: No [x] Yes [] Drug(s): Physician/Location: RADIOLOGY SAFETY QUESTIONS REVIEWED: If applicable MRICTSAFETYQUESTIONS LEARNING ASSESSMENT REVIEWED: yes ADVANCED DIRECTIVE: Not discussed today. PAIN ASSESSMENT: [0] out of 10 *eD-H Adult PCS Flow Sheet if 4 or above SOCIAL ASSESSMENT: See EDH social assessment information entered. Support Systems: lives with Barriers to treatment: none Referrals/Interventions: motion picture set up worker on SIM day per routine. RADIATION SPECIFIC TEACHING:Will provide the following information on simulation day [facility]iation [facility] and You Site specific teaching : Other: PLAN: Per Dr Holly's note documented in this encounter Plan of Treatment Scheduled Orders Name Type Priority Associated Diagnoses Orde r Schedule Simulation for Radiation Therapy Planning Procedures Routine Rectal cancer Ordered: 06/25/2018 documented as of this encounter Goals Goal Patient Goal Type Associated Problems Recent Progress Patient-Stated? Author DH Home Medication Compliance and Understanding Patient Facing Action Plan No Tanya Angela, [facility] Note: To complete this round of 28 days of chemo radiation therapy and make it through surgery documented as of this encounter Visit Diagnoses Diagnosis Rectal cancer Malignant neoplasm of rectum documented in this encounter Care Teams Quill Worker Relationship Specialty Start Date End Date Vickie Wolf APRN [address] [place] [address] PCP - General Family Medicine 05/07/18 05/20/22 documented as of this encounter
--- OUTSIDE RECORDS SUMMARY | 2024-03-08 14:22 | XMS_ITS | Encounter Summary ---
Author Organization [facility] [place] [address] Care Team Providers Care Senior Dentist Name Role Phone Viet Wolfeen Paige BECERRA Primary Care Provider Encounter Details Date Type Department Care Team (Late st Contact Info) Description 07/11/2018 Telephone Radiation Oncology at [address] [phone] Constantin Porter Social History Tobacco Use Types Packs/Day Years Used Date Smoking Tobacco: Never Smokeless Tobacco: Never Alcohol Use Standard Drinks/Week Comments Yes 0 (1 standard drink = 0.6 oz pur e alcohol) Sex and Gender Information Value Date Recorded Sex Assigned at Not on file Gender Identity Not on file Sexual Orientation Not on file documented as of this encounter Miscellaneous Notes * Telephone Encounter - Constantin Porter - 07/11/2018 8:53 AM EST Received a call from Frederick Pitt about his appointments today with Dr. Holly and Monday with Dr. Zamorano. He said that he received a call yesterday that he is scheduled to have surgery on Monday at [facility]. He did not want to reschedule his appointments at this time as he is hopeful that this surgery will mean that he will not need chemo or xrt. I informed him that I would cancel his appointments and let Dr. Holly and Dr. Zamorano know. documented in this encounter Plan of Treatment Not on file documented as of this encounter Goals Goal Patient Goal Type Associated Problems Recent Progress Patient-Stated? Author Home Medication Compliance and Understanding Patient Facing Action Plan No Tanya Angela, [facility] Note: To complete this round of 28 days of chemo radiation therapy and make it through surgery documented as of this encounter Visit Diagnoses Not on filedocumented in this encounter Care Teams Senior Dentist Relationship Specialty Start Date End Date Vickie Wolf APRN [address] [place] [address] PCP - General Family Medicine 05/07/18 05/20/22 documented as of this encounter
--- OUTSIDE RECORDS SUMMARY | 2024-03-08 14:22 | XMS_ITS | Encounter Summary ---
Author Organization [facility] [place] [address] Care Team Providers Care Mica Plate Layer Hand Name Role Phone Luciano Vickie Paige BECERRA Primary Care Provider [phone] Encounter Details Date Type Department Care Team (Late st Contact Info) Description 06/23/2018 Notes Only Hematology [place] [phone] Alex Savage MD [facility] DR HEMATOLOGY/[place] [address] Social History Tobacco Use Types Packs/Day Years Used Date Smoking Tobacco: Never Smokeless Tobacco: Never Sex and Gender Information Value Date Recorded Sex Assigned at Not on file Gender Identity Not on file Sexual Orientation Not on file documented as of this encounter Progress Notes * Alex Savage MD - 06/23/2018 12:24 PM EDT I have reviewed the patient's record and given personal and/or family history of cancer he should be seen by genetic counselor. This is scheduled for next week. documented in this encounter Plan of Treatment Not on file documented as of this encounter Goals Goal Patient Goal Type Associated Problems Recent Progress Patient-Stated? Author [facility] Medication Compliance and Understanding Patient Facing Action Plan Tanya Lino, [facility] Note: To complete this round of 28 days of chemo radiation therapy and make it through surgery documented as of this encounter Visit Diagnoses Not on filedocumented in this encounter Care Teams Mica Plate Layer Hand Relationship Specialty Start Date End Date Vickie Wlof, MARIAM [address] [facility] [address] [place] [address] PCP - General Family Medicine 05/07/18 05/20/22 documented as of this encounter
--- OUTSIDE RECORDS SUMMARY | 2024-03-08 14:22 | XMS_ITS | Encounter Summary ---
Author Organization [facility]ly [facility] [place] [address] Care Team Providers Care Solar Installation Crew Supervisor Name Role Phone Viet Wolfeen Paige BECERRA Primary Care Provider Encounter Details Date Type Department Care Team (Late st Contact Info) Description 03/01/2022 Telephone Gastroenterology at [address] [phone] Madeline Porter Social History Tobacco Use Types Packs/Day [...] encounter Miscellaneous Notes * Telephone Encounter - Madeline Porter - 03/03/2022 10:43 AM EDT Called patient 2nd time to schedule colo / LM on Vm and also sending letter to call office * Telephone Encounter - Madeline Porter - 03/01/2022 2:57 PM EDT Called leb patient to schedule colo with leb provider either 03/03 or 03/04 / LM on VM to call office back documented in this encounter Plan of Treatment Not on file documented as of this encounter Goals Goal Patient Goal Type Associated Problems Recent Progress Patient-Stated? Author DH Home Medication Compliance and Understanding Patient Facing Action Plan No Tanya Angela, [facility] Note: To complete this round of 28 days of chemo radiation therapy and make it through surgery documented as of this encounter Visit Diagnoses Not on filedocumented in this encounter Care Teams Solar Installation Crew Supervisor Relationship Specialty Start Date End Date Vickie Wolf, MARIAM [address] [place] [address] [address] [facility] [address] [place] [address] PCP - General Family Medicine 05/07/18 05/20/22 documented as of this encounter
--- OUTSIDE RECORDS SUMMARY | 2024-03-08 14:22 | XMS_ITS | Encounter Summary ---
Author Organization [facility] [place] [address] Care Team Providers Care Lamps Tester And Inspector Name Role Phone Viet Wolfeen Paige BECERRA Primary Care Provider [phone] Reason for Visit * Reason Onset Date Comments Questions 06/20/2018 re: flu shot Encounter Details Date Type Department Care Team (Late st Contact Info) Description 06/20/2018 Telephone Hematology/Oncology at [address] [phone] Patricio Brooks RN Questions (re: flu shot) Social History Tobacco Use Types Packs/Day Years Used Date Smoking Tobacco: Never Smokeless Tobacco: Never Sex and Gender Information Value Date Recorded Sex Assigned at Not on file Gender Identity Not on file Sexual Orientation Not on file documented as of this encounter Miscellaneous Notes * Telephone Encounter - Patricio Brooks RN - 06/20/2018 12:20 PM EDT Spoke with Marcelo Keen Beljai and advised he can get flu shot today. Pt was thankful for call. ----- Message from Bright Zamorano MD sent at 06/20/2018 11:34 AM EDT ----- Regarding: RE: Please Call Yes, he should go ahead with that. ----- Message ----- From: Patricio Brooks RN Sent: 06/20/2018 10:32 AM To: Bright Zamorano MD Subject: FW: Please Call What are your thoughts on Pt getting flu shot today? Elayne-Alexus RN ----- Message ----- From: Charles Lissette Wooadll Sent: 06/20/2018 10:21 AM To: [facility] Nurse Subject: Please Call Frederick is wondering if he can get his flu shot today. They are offering it for free at his work. He can be reached on either his cell or work phone. Thanks, Lissette documented in this encounter Plan of Treatment Not on file documented as of this encounter Goals Goal Patient Goal Type Associated Problems Recent Progress Patient-Stated? Author DH Home Medication Compliance and Understanding Patient Facing Action Plan No Tanya Angela, [facility] Note: To complete this round of 28 days of chemo radiation therapy and make it through surgery documented as of this encounter Visit Diagnoses Not on filedocumented in this encounter Care Teams Lamps Tester And Inspector Relationship Specialty Start Date End Date Vickie Wolf, [employer] [facility] RN [address] [place] [address] [address] [place] [address] PCP - General Family Medicine 05/07/18 05/20/22 documented as of this encounter
--- OUTSIDE RECORDS SUMMARY | 2024-03-08 14:22 | XMS_ITS | Encounter Summary ---
[place] [address] Care Team Providers Care Table Runner Name Role Phone LisandroVickie zarate Paige BECERRA Primary Care Provider Encounter Details Date Type Department Care Team (Latest Contact Info) Description 06/28/2018 4:30 PM EDT Laboratory Appointment Lab [address] [place] [id number] Rectal cancer; Family history of BRCA gene mutation; Family history of malignant neoplasm of breast Social History Tobacco Use Types Packs/Day Years Used Date Smoking Tobacco: Never Smokeless Tobacco: Never Alcohol Use Standard Drinks/Week Comments Yes 0 (1 standard drink = 0.6 oz pur e alcohol) Sex and Gender Information Value Date Recorded Sex Assigned at Not on file Gender Identity Not on file Sexual Orientation Not on file documented as of this encounter Plan of Treatment Not on file documented as of this encounter Goals Goal Patient Goal Type Associated Problems Recent Progress Patient-Stated? Author [facility] Medication Compliance and Understanding Patient Facing Action Plan No Tanya Angela, [facility] Note: To complete this round of 28 days of chemo radiation therapy and make it through surgery documented as of this encounter Procedures Procedure Name Priority Date/Time Associated Diagnosis Comments RESEARCH VENIPUNCTURE Routine 06/28/2018 4:15 PM EDT documented in this encounter Results * Research Venipuncture (06/28/2018 4:15 PM EDT) Research Venipuncture Complete [facility] Blood specimen (specimen) Research Skyla / Unknown 06/28/2018 4:15 PM EDT 06/28/2018 4:21 PM EDT Narrative Resulting Agency Comment Spec In Lab Alex Savage MD CHEMISTRY ORDERABLES [facility] [place] [address] documented in this encounter Visit Diagnoses Diagnosis Rectal cancer Malignant neoplasm of rectum Family history of BRCA gene mutation Family history of malignant neoplasm of breast documented in this encounter Care Teams Table Runner Relationship Specialty Start Date End Date Vickie Wolf APRN [address] [place] [address] PCP - General Family Medicine 05/07/18 05/20/22 documented as of this encounter
--- OUTSIDE RECORDS SUMMARY | 2024-03-08 14:22 | XMS_ITS | Encounter Summary ---
[place] [address] Care Team Providers Care Stores Clerk Name Role Phone LisandroVickie zarate Paige BECERRA Primary Care Provider Encounter Details Date Type Department Care Team (Late st Contact Info) Description 08/14/2018 Specialty [place] [phone] Tanya Angela [facility] Social History Tobacco Use Types Packs/Day Years Used Date Smoking Tobacco: Never Smokeless Tobacco: Never Alcohol Use Standard Drinks/Week Comments Yes 0 (1 standard drink = 0.6 oz pur e alcohol) Sex and Gender Information Value Date Recorded Sex Assigned at Not on file Gender Identity Not on file Sexual Orientation Not on file documented as of this encounter Progress Notes * Tanya Porter Nato - 08/14/2018 4:00 PM EST Clinical Management Plan: Transfer of Care/Discharge Specialty Services Specialty Pharmacy Consultation; Tanya Porter [facility] Comprehensive Medication Management (CMM) Marcelo Pitt [address] [facility] [address] Telephone Information: Is the patient transferring services to a different Specialty Pharmacy or discontinuing the medication? Discontinue Medication: Capecitabine Reason for discontinuation or transfer: completed therapy Approximate date of discontinuation or transfer: 06/25/18 Patient's response to therapy: determined by clinic Summary of services provided by [facility] Special[facility]: consultation Summary of on-going needs: follow up scheduled Referral for additional services (if applicable): NA Instructions provided to patient about discharge/transfer: yes - . Provider aware of discontinuation or transfer: yes Patient understands no changes to current drug regimen were made at the appointment and that [facility] isproviding recommendations (summary located at top of note) for provider review and follow up. Tanya Porter RPH 08/14/18 4:02 PM documented in this encounter Plan of Treatment Not on file documented as of this encounter Goals Goal Patient Goal Type Associated Problems Recent Progress Patient-Stated? Author DH Home Medication Compliance and Understanding Patient Facing Action Plan No Tanya Angela [facility] Note: To complete this round of 28 days of chemo radiation therapy and make it through surgery documented as of this encounter Visit Diagnoses Not on filedocumented in this encounter Care Teams Stores Clerk Relationship Specialty Start Date End Date Vickie Wolf APRN [address] [facility] [address] [place] [address] PCP - General Family Medicine 05/07/18 05/20/22 documented as of this encounter
--- OUTSIDE RECORDS SUMMARY | 2024-03-08 14:22 | XMS_ITS | Encounter Summary ---
[place] [address] Care Team Providers Care Furnace Operator Name Role Phone Luciano Vickie Paige BECERRA Primary Care Provider [phone] Encounter Details Date Type Department Care Team (Late st Contact Info) Description 07/26/2018 Telephone [place] [phone] Nancy Mcgee [facility] HEMATOLOGY/[place] [address] Social History Tobacco Use Types Packs/Day Years [...] encounter Miscellaneous Notes * Telephone Encounter - Nancy Mcgee - 07/26/2018 4:00 PM EST This test result was discussed with the patient by phone. Please be advised that [place] law requires that all health care workers respect the confidentiality of this information and not pass it along to other health care providers, insurance companies, or individuals without the written permission of the patient. The Familial Cancer Program welcomes any questions about these matters. Our phone number is: [phone]. On 06/28/18, Marcelo underwent genetic testing for a hereditary predisposition to cancer. Following are the results of this test. 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 This test was performed at a commercial laboratory called [facility]. This result was discussed briefly by phone and the patient will return to clinic to meet with Dr. Savage and myself on 08/10/18. We will include screening recommendations in the note for that visit. documented in this encounter Plan of Treatment Not on file documented as of this encounter Goals Goal Patient Goal Type Associated Problems Recent Progress Patient-Stated? Author DH Home Medication Compliance and Understanding Patient Facing Action Plan No Tanya Angela, [facility] Note: To complete this round of 28 days of chemo radiation therapy and make it through surgery documented as of this encounter Visit Diagnoses Not on filedocumented in this encounter Care Teams Furnace Operator Relationship Specialty Start Date End Date Vickie Wolf APRN [address] [place] [address] PCP - General Family Medicine 05/07/18 05/20/22 documented as of this encounter
--- OUTSIDE RECORDS SUMMARY | 2024-03-08 14:22 | XMS_ITS | Encounter Summary ---
Author Organization [facility] [place] [address] Care Team Providers Care Diabetes Nurse Name Role Phone Vickie Wolf APRN Primary Care Provider Reason for Visit * Reason Comments Genetic Evaluation Rectal cancer * Consultation (Urgent) - Closed Specialty Diagnoses / Procedures Referred By Contdeedee t Referred To Contact Hematology and Oncology Diagnoses Rectal cancer Bright Zamorano MD [facility] [place] [address] [facility] [address] [place] [address] Referral ID Status Reason Start Date Expiration Date V isits Requested Visits Authorized [id number] Closed Consult, Test & Treat 06/15/2018 06/15/2019 1 1 Encounter Details Date Type Department Care Team (Late st Contact Info) Description 06/28/2018 3:30 PM EDT Office Visit Hematology [place] [phone] [facility] HEMATOLOGY/[place] [address] Rectal cancer; Family history of BRCA gene [...] as of this encounter Progress Notes * Nancy Mcgee M - 06/28/2018 3:30 PM EDT Mr. Pitt was seen by Nancy Mcgee MS, [facility] at the request of MD [facility] regarding possible heritable predisposition to cancer. I spent 35 minutes of this face to face encounter with the patient gathering medical and family history and discussing the likelihood of a genetic predisposition to cancer and the option of genetic testing. Reason for referral/Chief complaint Personal history of rectal cancer and family history of BRCA mutation. Medical history Cancer hx and treatment: Rectal cancer at 47, microsatellite stable Current cancer screening: None reported Family History of Cancer Problem Relation Age of Onset ??? Prostate Cancer Father 65 ??? Hereditary Breast and Ovarian Cancer Syndrome Mother ??? Lung Cancer Paternal Grandfather 75 ??? Breast and Ovarian Cancer Maternal Aunt #1 65 ??? Kidney Cancer Maternal Aunt #1 69 ??? Hereditary Breast and Ovarian Cancer Syndrome Maternal Aunt #1 ??? Breast Cancer Maternal Cousin #1 46 ??? Hereditary Breast and Ovarian Cancer Syndrome Maternal Cousin #1 ??? Ovarian Cancer Maternal Cousin #2 Maternal ethnic background is [place], [place], non-Mandaen. Paternal ethnic background is [place], non-Mandaen. Genetic risk assessment Based on the known BRCA mutation in the family, Marcelo has a 50% chance of also being a carrier. Genetic testing is recommended. We do not have documentation of the specific mutation, but this mutation is expected to be covered by the panel that is being ordered below. We have asked Marcelo to provide a copy of his mother or aunt's test results so that we can confirm with the laboratory that they have covered that mutation in their analysis. Panel genetic testing for an inherited predisposition to cancer was discussed based on Marcelo's early onset colorectal cancer. The risks, benefits and limitations of panel genetic testing were reviewed. Marcelo opted for testing with Breast/Airport Shuttle Driver/GI Panel, a next generation sequencing panel that simultaneously analyzes 47 genes that contribute to increased risk for cancer. Marcelo opted for testing and was consented. His blood sample was drawn today and sent to [facility]. Insurance pre-authorization and testing will take approximately 2-3 weeks. Marcelo will be contactedvia telephone once his test results become available. If positive, we will schedule an in person follow-up appointment. At that time, we will discuss with Marcelo the implications that this test result may have for him, as well as his family members. We will also provide Marcelo with screening guidelines for cancer prevention and early detection, as well as answer any questions he may have. Screening Recommendations We will readdress the issue of screening upon the receipt of Marcelo???s genetic test result. documented in this encounter Plan of Treatment Not on file documented as of this encounter Goals Goal Patient Goal Type Associated Problems Recent Progress Patient-Stated? Author DH Home Medication Compliance and Understanding Patient Facing Action Plan Tanya Lino, [facility] Note: To complete this round of 28 days of chemo radiation therapy and make it through surgery documented as of this encounter Visit Diagnoses Diagnosis Rectal cancer Malignant neoplasm of rectum Family history of BRCA gene mutation Family history of malignant neoplasm of breast documented in this encounter Care Teams Diabetes Nurse Relationship Specialty Start Date End Date Vickie Wolf APRN [address] [place] [address] PCP - General Family Medicine 05/07/18 05/20/22 documented as of this encounter
--- OUTSIDE RECORDS SUMMARY | 2024-03-08 14:22 | XMS_ITS | Encounter Summary ---
Author Organization [facility] [place] [address] Care Team Providers Care Transplant Worker Name Role Phone Vickie Wolf APRN Primary Care Provider Reason for Visit * Reason Onset Date Comments Chemotherapy 06/15/2018 Capcitabine Scri pt sent Encounter Details Date Type Department Care Team (Late st Contact Info) Description 06/15/2018 Telephone Hematology/Oncology at [address] [phone] Zelda Richmond RN Chemotherapy (Capcitabine Script sent) Social History Tobacco Use Types Packs/Day Years Used Date Smoking Tobacco: Never Smokeless Tobacco: Never Sex and Gender Information Value Date Recorded Sex Assigned at Not on file Gender Identity Not on file Sexual Orientation Not on file documented as of this encounter Miscellaneous Notes * Telephone Encounter - Zelda Richmond RN - 06/15/2018 4:28 PM EDT Capecitabine script faxed to specialty pharmacy, . Fax confirmed. Also completed FMLA paperwork and put in the mail to return to Pt. documented in this encounter Plan of Treatment Not on file documented as of this encounter Visit Diagnoses Not on filedocumented in this encounter Care Teams Transplant Worker Relationship Specialty Start Date End Date Vickie Wolf APRN [address] [place], [place] [address] PCP - General Family Medicine 05/07/18 05/20/22 documented as of this encounter
--- OUTSIDE RECORDS SUMMARY | 2024-03-08 14:22 | XMS_ITS | Encounter Summary ---
Author Organization [facility] Address [facility] [place] [address] Care Team Providers Care Chemical Etching Processor Name Role Phone Vickie Wolf APRN Primary Care Provider Encounter Details Date Type Department Care Team (Late st Contact Info) Description 08/02/2018 External Results Medical Records [facility] [place] [phone] Provider, Scanning Social History Tobacco Use Types Packs/Day Years [...] Action Plan No Tanya Angela, [facility] Note: To complete this round of 28 days of chemo radiation therapy and make it through surgery documented as of this encounter Procedures Procedure Name Priority Date/Time Associated Diagnosis Comments SURGICAL PATHOLOGY SCAN Routine 08/02/2018 documented in this encounter Results * Scan Doc: Surgical Pathology (08/02/2018) Micha Reynolds MD MEDIA MGR SCAN EXT O RDR/RSLT documented in this encounter Visit Diagnoses Not on filedocumented in this encounter Care Teams Chemical Etching Processor Relationship Specialty Start Date End Date Vickie Wolf APRN [address] [place] [address] PCP - General Family Medicine 05/07/18 05/20/22 documented as of this encounter
--- OUTSIDE RECORDS SUMMARY | 2024-03-08 14:22 | XMS_ITS | Encounter Summary ---
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 Pitt was seen by Nancy Mcgee MS, [facility] and myself in the Familial Cancer Programto receive results from genetic testing. I spent all of 20 minutes in [id number] consultation outlining the test result and its implications. A copy of a letter sent to the patient containing theseresults is provided below. Please be advised that [place] law requires that all health care workers respect the confidentiality of this information and not pass it along to other health care providers, insurance companies, or individuals without the written permission of the patient. The Familial Cancer Program welcomes any questions about these matters. Our phone number is: [phone]. On 06/28/18, Marcelo underwent the Common Hereditary Cancers panel analysis. Following are the results of this test. 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 This test was performed at a commercial laboratory called [facility]. At the time of the appointment, Marcelo was provided with a printed copy of his test result and an informational packet addressing a positive test result. Interpretation: The most significant consequences of carrying an altered copy of BRCA2 are increased risks for breast cancer and prostate cancer. For a male carrier who has not had cancer, lifetime risk of breast cancer is approximately 12% (1 in 8) compared to a 1 in 1000 lifetime risk for the general [place] population. Lifetime risk of developing prostate cancer is also significantly increased at 22% compared to a14% lifetime risk seen in the general population. At this time, Marcelo's 10 year risk of developingbreast and prostate cancer is approximately 2% and 1.5% respectively. Other cancers associated withBRCA2 are ovarian, pancreatic, esophageal and melanoma. It is important to keep in mind that not all individuals who inherit an mutation in the BRCA2 gene will develop cancer. We also revisited the autosomal dominant inheritance pattern of BRCA2 mutations. Marcelo reports that he does not plan on having children. Reproductive options are available to those interested in preventing passing this condition to their future children. Of note, a rare recessive, childhood onset cancer syndrome called Fanconi Anemia can occur if both partners are a carrier of an mutation in theBRCA2 gene. Based on Marcelo's family history, Marcelo has inherited the BRCA2 gene mutation from hismother. Marcelo's other maternal relatives such as siblings, aunts, uncles and cousins are also at an increased risk of carrying the BRCA2 gene mutation. Please feel free to contact us, if any of [his/her] family members are interested in genetic testing and need assistance in arranging evaluations for themselves, in their area. They may also go to the National Society of Genetic Counselors at www.nsgc.org in order to find a counselor in their area. Screening: Cancer screening ?? Monthly self breast exams starting at age 35. ?? Clinical breast exams every 6-12 months starting at age 35. ?? Consider baseline mammogram at age 40; annual mammogram if gynecomastia or parenchymal/glandularbreast density on baseline study. ?? Consider prostate cancer screening starting at age 40. ??? Annual skin exams ?? Colorectal cancer screening based on the recommendations of Marcelo's cancer team Some families with mutations in BRCA2 also show an increased incidence of pancreatic cancer. Two main risk factors in the general population for pancreatic cancer are smoking and heavy drinking. Although there are no clear data on the increased risk of combining smoking and heavy drinking with being a BRCA2 carrier, this test result should be thought of as another good reason, among many others, for Marcelo not to start smoking and drinking heavily and other family members to quit smoking and drinking heavily if they are smokers or heavy drinkers at this time. We also discussed with Marcelo that there is no established screening for pancreatic cancer and that current expert opinion only recommends screening for pancreatic cancer in BRCA2 carriers with a 1st or 2nd degree relative with pancreatic cancer. This is not the case in Marcelo's family. However, Dr. Christiana Scott, a electrical engineering teacher at [employer], is willing to discuss these screening options with Marcelo if he desires. Marcelo canschedule an appointment with her by reaching her membership secretary at [phone]. We have also provided Marcelo with information on an online support organization called [employer]: Facing Our Risk of Cancer Empowered which may help with assimilating to his genetic test result. It can be difficult for people to predict how they will react to learning about the presence of an altered gene in their families and in themselves. A variety of feelings may occur after learning that one carries a gene mutation. Some individuals experience a sense of relief from knowing and understanding the underlying cause of all the cancers in the family or from finally knowing their personal cancer risk and gene status. Testing may bring up feelings about other relatives who had cancer. It is not un common to experience an increase in anxiety, sleeplessness or depression, as a result of worries about one???s current and future health. One may also worry that other family members might have inherited the altered gene. For some, a consultation with a psychologist, social worker health services, or psychiatrist may be helpful in dealing with feelings that may arise from genetic testing. If Marcelo would like a referral, we can help and recommend a therapist who is familiar with issues surrounding genetic conditions. Some individuals have expressed a desire to talk with others in similar situation. Please feel free to let us know if Marcelo would be interested in this and if we can help. documented in this encounter Plan of Treatment Not on file documented as of this encounter Goals Goal Patient Goal Type Associated Problems Recent Progress Patient-Stated? Author Home Medication Compliance and Understanding Patient Facing Action Plan No Tanya Angela, [facility] Note: To complete this round of 28 days of chemo radiation therapy and make it through surgery documented as of this encounter Visit Diagnoses Diagnosis BRCA2 gene mutation positive in male History of rectal cancer Personal history of malignant neoplasm of rectum, rectosigmoid junction, and anus Family history of malignant neoplasm of breast Family history of malignant neoplasm of ovary documented in this encounter Care Teams Epic Analyst Relationship Specialty Start Date End Date Vickie Wolf APRN [address] [place] [address] PCP - General Family Medicine 05/07/18 05/20/22 documented as of this encounter
--- OUTSIDE RECORDS SUMMARY | 2024-03-08 14:22 | XMS_ITS | Encounter Summary ---
[place] [address] Care Team Providers Care Transportation Engineering Technician Name Role Phone LisandroVickie zarate Paige BECERRA Primary Care Provider Encounter Details Date Type Department Care Team (Late st Contact Info) Description 07/26/2018 Telephone Hematology [place] [id number] Nancy Mcgee [facility] HEMATOLOGY/[place] [address] Social History Tobacco Use Types Packs/Day Years [...] Telephone Encounter - Nancy Mcgee - 07/26/2018 1:03 PM EST Left message asking Marcelo to call me back to go over his genetic test results. documented in this encounter Plan of Treatment Not on file documented as of this encounter Goals Goal Patient Goal Type Associated Problems Recent Progress Patient-Stated? Author [facility] Medication Compliance and Understanding Patient Facing Action Plan No Tanya Angela, [facility] Note: To complete this round of 28 days of chemo radiation therapy and make it through surgery documented as of this encounter Visit Diagnoses Not on filedocumented in this encounter Care Teams Transportation Engineering Technician Relationship Specialty Start Date End Date Vickie Wolf, MARIAM [address] [place] [address] PCP - General Family Medicine 05/07/18 05/20/22 documented as of this encounter
--- OUTSIDE RECORDS SUMMARY | 2024-03-08 14:22 | XMS_ITS | Encounter Summary ---
[place] [address] Care Team Providers Care Supervisor Salvage Name Role Phone LucianoVickie Paige BECERRA Primary Care Provider Reason for Visit * Reason Comments Medication Management Patient Education Encounter Details Date Type Department Care Team (Late st Contact Info) Description 06/18/2018 Specialty [place] [address] Tanya Angela [facility] Social History Tobacco Use Types Packs/Day Years Used Date Smoking Tobacco: Never Smokeless Tobacco: Never Sex and Gender Information Value Date Recorded Sex Assigned at Not on file Gender Identity Not on file Sexual Orientation Not on file documented as of this encounter Progress Notes * Tanya Porter Nato - 06/18/2018 10:35 AM EDT Specialty Pharmacy Consultation; Tanya Porter [facility] Comprehensive Medication Management (CMM) Marcelo Pitt Diagnosis: 1. Rectal cancer Therapy Start Date: 06/19/18 Contact in person or via telephone:Phone Mr. Marcelo Pitt is a 47 y.o. (1970) male who was contacted in regard to specialty medication. Spoke with patient regarding Capecitabine . A review of the medication therapy was performed. The medication was Filled as scheduled, and all medication related questions and concerns were addressed. The specialty pharmacy staff will follow up with the patient 7 days prior to next refill. Is the patient willing to proceed with the Clinical Assessment? Yes Summary and Recommendations: Potential side effects of Capecitabine such as nausea, diarrhea, fever, and hand/foot syndrome reviewed as well as monitoring. The patient takes no other medication. He stated that goals were discussed in his clinic visit. Allergies, contact info, and administration / safe storage also reviewed. The pt understands to take this on radiation days and has no questions at this time. The med will be mailed out for no charge. Follow up needed: No Allergies and Drug intolerance: No Known Allergies Special Dietary Requirements: no There is no height or weight on file to calculate BMI. Medication Reconciliation Discrepancies (compared to [facility] med list): none Medication Adherence Patient reported X missed doses in the last month: 0 Any gaps in refill history greater than 2 weeks in the last 3 months: no Demonstrates understanding of importance of adherence: yes Informant: patient Reliability of informant: reliable Provider-estimated medication adherence level: 90-100% Reasons for non-adherence: no problems identified Support network for adherence: healthcare provider Confirmed plan for next specialty medication refill: delivery by pharmacy Refills needed for supportive medications: not needed Medication List: Current Outpatient Medications Medication Sig Dispense Refill ??? CAPEcitabine (XELODA) chemo tablet Take with food. Take 1800 mg PO BID on days of radiation Call clinic before starting medication. The prescription should be filled with whatever strength the pharmacy has available to achieve the prescribed dose, preferably taking the smallest number of capsules/tablets prescribed. 56 Doses of treatment to dispense 0 No current facility-administered medications for this visit. Most Recent Vitals: Ht Readings from Last 1 Encounters: 06/15/18 181.5 cm (5' 11.46) Wt Readings from Last 3 Encounters: 06/15/18 95.9 kg (211 lb 6.4 oz) 06/11/18 97.5 kg (215 lb) 05/11/18 93 kg (205 lb) Temp Readings from Last 3 Encounters: 06/15/18 36.6 ??C (97.9 ??F) (Oral) 06/11/18 36.8 ??C (98.2 ??F) 05/11/18 36.3 ??C (97.3 ??F) (Temporal) BP Readings from Last 3 Encounters: 06/15/18 (!) 140/93 06/11/18 126/89 05/11/18 (!) 120/91 Pulse Readings from Last 3 Encounters: 06/15/18 77 06/11/18 51 05/11/18 54 Pertinent Lab values: No results found for: ALT, AST, GGT, ALKPHOS, BILITOT, BILIDIR, ALBUMIN, PROT No results found for: WBC, HGB, HCT, MCV, PLATELET No results found for: HA1C There is no immunization history on file for this patient. Assessment and Recommendations: Title Type of Medication Management: chronic disease management Recipient: beneficiary Provider: plan sponsor pharmacist Visit Type: CMM New Patient Cognitive Ability: good Cognitive Impairment Status Verified this Year: no Patient Counseling Counseled the patient on the following: cost of medications and cost implications discussed, adherence and missed doses discussed, pharmacy contact information discussed Drug Medication Management Summary Topics discussed: cost of medications and cost implications discussed, adherence and missed doses discussed, pharmacy contact information discussed Number of adverse drug events identified: 0 Time spent: 16-30 min Treatment Outcomes 06/18/2018 Disease progression: Stable Patient Overall Status: Stable Reviewed in detail with patient: Dose appropriateness based on recommended standard dosing Current medication list including OTC medications Medication and disease problems Allergies Comorbid conditions/ Problem List Past adverse events if any Special needs of the patient including physical and cognitive limitations Goals of therapy and management strategies Warnings, precautions, and contraindications Side effects Drug-drug and drug-food interactions Administration instructions including dose, frequency and method Handling, storage, and disposal of the medication Relevant lab data Physical Assessment: Functional limitations identified: no Cognitive limitations identified: no Concern regarding orientation/memory: no Concern with reasoning/judgement: no Is patient a fall risk: no Other needed information: no Social Assessment: Does the patient have a primary hospice care transitions coordinator? no Patient has emergency contact on file: Yes Physical and Home Health Assessment: Is the patient able to store their medication as directed? Yes Is the patient in a safe home environment? Yes Do you have a support network? Yes Reviewed potential home safety hazards: No Economic Assessment: Patient is agreeable to medication copay: Yes Copay Amount: $0 Day Supply: 28 Date Needed: 06/19/18 Copay assistance required: no Patient's Problems/Needs: See problem list Therapy Assessment: Appropriate Therapy: Yes Expected Outcome: as determined by clinic after surgery Patient's goals: Goals ??? Home Medication Compliance and Understanding To complete this round of 28 days of chemo radiation therapy and make it through surgery Care Plan Reviewed and Approved by both Pharmacist and Patient: Yes Monitoring requirements for prescribed medication: Labs ordered Interventions (if applicable): No Educational information or adherence tools provided: Yes Additional equipment/supplies required: no Follow-up needed: Yes Informed patient of specialty pharmacy services: Yes -Patient received welcome and rights packet: Yes Date Received: Mailed -Patient is aware a licensed pharmacist is available 24 hours a day, 7 days a week to discuss medication-related questions or concerns: Yes -Patient verbalizes understanding of the common side effect profile of their medication. The patient is able to call 911 or seek urgent care if signs/symptoms of allergy or harmful adverse reactions occur: Yes Pt understands no changes to current drug regimen were made at the appointment and that [facility] is providing recommendations (summary located at top of note) for provider review and follow up. Tanya Porter RPH 06/18/18 10:48 AM documented in this encounter Plan of Treatment Not on file documented as of this encounter Goals Goal Patient Goal Type Associated Problems Recent Progress Patient-Stated? Author Home Medication Compliance and Understanding Patient Facing Action Plan No Tanya Angela RPH Note: To complete this round of 28 days of chemo radiation therapy and make it through surgery documented as of this encounter Visit Diagnoses Diagnosis Rectal cancer Malignant neoplasm of rectum documented in this encounter Care Teams Supervisor Salvage Relationship Specialty Start Date End Date Vickie Wolf APRN [address] [place] [address] PCP - General Family Medicine 05/07/18 05/20/22 documented as of this encounter
--- OUTSIDE RECORDS SUMMARY | 2024-03-08 14:22 | XMS_ITS | Encounter Summary ---
Author Organization [facility]ly [facility] [place] [address] Care Team Providers Care Slide Developer Name Role Phone Vickie Wolf APRN Primary Care Provider Reason for Visit * Reason Onset Date Comments Advice Only 06/15/2018 Encounter Details Date Type Department Care Team (Late st Contact Info) Description 06/15/2018 Telephone General Surgery at [facility] [place] [phone] Micha Reynolds MD [facility] [place] [address] Advice Only Social History Tobacco Use Types Packs/Day Years Used Date Smoking Tobacco: Never Smokeless Tobacco: Never Sex and Gender Information Value Date Recorded Sex Assigned at Not on file Gender Identity Not on file Sexual Orientation Not on file documented as of this encounter Miscellaneous Notes * Telephone Encounter - Micha Reynolds MD - 06/15/2018 9:50 AM EDT ----- Message from Ciarra Rodriguez sent at 06/14/2018 1:59 PM EDT ----- Regarding: ? SECOND OPINION Pt would like to speak w you re getting a second opinion- please call cell first. [phone] (M) [phone] (W) Thanks Ciarra Called patient to discuss second opinion. Offered [facility], [facility], and [facility] as relatively local options. Reiterated that should he choose to pursue a second opinion, we ensure all of his records would be available to alternative providers. Pt stated he wanted to think over his options and is planning to keep his appointment with Drs. Zamorano and Avni next week. All of his questions w ere answered to his satisfaction. documented in this encounter Plan of Treatment Not on file documented as of this encounter Visit Diagnoses Not on filedocumented in this encounter Care Teams Slide Developer Relationship Specialty Start Date End Date Vickie Wolf, MARIAM [address] [place] [address] PCP - General Family Medicine 05/07/18 05/20/22 documented as of this encounter
--- OUTSIDE RECORDS SUMMARY | 2024-03-08 14:22 | XMS_ITS | Clinical Summary ---
Author Organization [facility]ly [facility] Address [facility] [place] [address] Care Team Providers Care Charge Lpn Name Role Phone Unknown Primary Care Provider Unavailabl e Allergies No known active allergies Medications Medication Sig Dispensed Refills Start Date End Date Status CAPEcitabine (XELODA) chemo tablet Take with food. Take 1800 mg PO BID on days of radiation Call clinic before starting medication. The prescription should be filled with whatever strength the pharmacy has available to achieve the prescribed dose, preferably taking the smallest number of capsules/tablets prescribed. 56 Doses of treatment to dispense 06/15/2018 Active Active Problems Problem Noted Date Diagnosed Date Rectal cancer 06/13/2018 Cancer Staging:Clinical:Stage I(cT2, cN0, cM0) - Signed by Georges Holly MD on 06/13/2018 rectal cancer at 47; genetic counseling recommen ded 05/29/2018 Family History Medical History Relation Comments Prostate Cancer Father Breast Cancer Maternal Aunt Hereditary Breast and Ovarian Cancer Syndrome Ma ternal Aunt Kidney Cancer Maternal Aunt Ovarian Cancer Maternal Aunt Breast Cancer Maternal Cousin 1 Hereditary Breast and Ovarian Cancer Syndrome Ma ternal Cousin 1 Ovarian Cancer Maternal Cousin 2 Hereditary Breast and Ovarian Cancer Syndrome Mo ther BRCA mutation Lung Cancer Paternal Grandfather Relation Status Comments Brother Alive Father Alive Maternal Aunt Alive Maternal Cousin 1 Alive Maternal Cousin 2 Alive Maternal Grandfather Maternal Grandmother Mother Alive Paternal Grandfather Paternal Grandmother Sister Alive Social History Tobacco Use Types Packs/Day Years Used Date Smoking Tobacco: Never Smokeless Tobacco: Never Alcohol Use Standard Drinks/Week Comments Yes 0 (1 standard drink = 0.6 oz pur e alcohol) Sex and Gender Information Value Date Recorded Sex Assigned at Not on file Gender Identity Not on file Sexual Orientation Not on file Last Filed Vital Signs Vital Sign Reading [...] AM EDT with steel toed boots Height 181.5 cm (5' 11.46) 06/15/2018 1:01 PM EDT Body Mass Index 29.88 06/15/2018 1:01 PM EDT Plan of Treatment Health Maintenance Due Date Last Done Comments CT Colonography 1972 Colonoscopy 1972 Colorectal Cancer Screening 1972 FIT DNA 1972 FIT 1972 Sigmoidoscopy (10 year) with FIT yearly 1972 Sigmoidoscopy 1972 HIV screen 1990 Hepatitis C Screening 1990 Lipid Screening 1990 Hepatitis B vaccine (0-59 yrs) (1) 1991 Tdap adult 1991 Tetanus vaccine 1991 Zoster vaccine (1 of 2) 2022 Covid-19 Vaccine (3 - 2022- season) 04/28/202311/2020, 11/01/2020 Influenza (Flu) vaccine (1 o f 1 - Influenza standard series) 04/28/2024 Goals Goal Patient Goal Type Associated Problems Recent Progress Patient-Stated? Author DH Home Medication Compliance and Understanding Patient Facing Action Plan No Tanya Angela, [facility] Note: To complete this round of 28 days of chemo radiation therapy and make it through surgery Care Teams Charge Lpn Relationship Specialty Start Date End Date Unknown None PCP - General 05/21/22
--- OUTSIDE RECORDS SUMMARY | 2024-03-08 14:23 | XMS_ITS | Clinical Summary ---
Author Organization [facility] Address [address] [place] [id number] Care Team Providers Care Emt I/99 Name Role Phone Musa Olivarez MD Primary Care Provider [phone] Social History Tobacco Use Types Packs/Day Years Used Date Smoking Tobacco: Never Assessed Interpersonal Safety Answer Date Record ed Physically Hurt Never 03/29/2020 Verbally Threaten Not on file 03/29/2020 Sex and Gender Information Value Date Recorded Sex Assigned at Not on file Gender Identity Not on file Sexual Orientation Not on file Plan of Treatment Health Maintenance Due Date Last Done Comments Hepatitis B Vaccine (1 of 3 - 19+ 3-dose series) 08/11 COVID-19 Vaccine ( season) 2023 Hepatitis C Screen Completed 09/24/2021 Procedures Procedure Name Priority Date/Time Associated Diagnosis Comments HEPATITIS C AB W REFLEX TO HCV RNA BY PCR Routine 09/24/2021 7:23 EST from Last 3 Months or Most Recently Relevant to Health Maintenance Results * HEPATITIS C AB W REFLEX TO HCV RNA BY PCR (09/24/2021 7:23 EST) Hep C Antibody Negative Negative 09/27/2021 11:35 EST [facility] Blood VENOUS BLOOD / Unknown 09/24/2021 7:23 EST 09/24/2021 16:34 EST Provider Outr Resulting Lab CHEMISTRY & BLOOD GAS ORDERABLES [facility] [address] [place] [address] from Last 3 Months or Most Recently Relevant to Health Maintenance Care Teams Emt I/99 Relationship Specialty Start Date End Date Musa Olivarez MD [address] [place] [id number] PCP - General 01/15/13
--- OUTSIDE RECORDS SUMMARY | 2024-03-08 14:23 | XMS_ITS | Encounter Summary ---
Author Organization [facility] Address [address] [place] [address] Care Team Providers Care Geophysical Laboratory Chief Name Role Phone Musa Olivarez MD Primary Care Provider [phone] Encounter Details Date Type Department Care Team (Late st Contact Info) Description 03/27/2018 Results Only [facility] [phone] Jeff Toney MD [address] [place] [phone] Social History Tobacco Use Types Packs/Day Years Used Date Smoking Tobacco: Never Assessed Sex and Gender Information Value Date Recorded Sex Assigned at Not on file Gender Identity Not on file Sexual Orientation Not on file documented as of this encounter Plan of Treatment Not on file documented as of this encounter Procedures Procedure Name Priority Date/Time Associated Diagnosis Comments SURGICAL PATHOLOGY Routine 03/27/2018 15 :47 EDT documented in this encounter Results * SURGICAL PATHOLOGY (03/27/2018 15:47 EDT) Pathology Report: SURGICAL PATHOLOGY REPORT Reports generated via electronic interface contain original data; however they are lacking the format of the original report. Caution should be taken when reading/interpret ing unformatted reports. Name: ? MARCELO GRACE ? Accession #: ? [id number] ? : ? 1970 (Age: 47) ??M ? Collect Date: ? 03/27/2018 ? Location: ? [facility] ? Receive Date: ? 03/27/2018 ? Provider: JEFF TONEY MD Copy to: ? Final Pathologic Diagnosis: A. COLON, SIGMOID, POLYP, BIOPSY: - Hyperplastic polyp. B. RECTUM, MASS, BIOPSY: - Superficial fragments of tubulovillous adenoma. - See comment. Comment: The histologic findings of the rectal mass (specimen B) were discussed with Dr. Toney on 1010 03/28/2018. Document reviewed and electronically signed by: BIGG AUSTIN MD Report ??Date: 03/28/2018 12:37 By the signature above, the attending physician certifies that he/she has personally conducted a gross and/or microscopic examination of the described specimens and rendered or confirmed the above diagnosis. Specimen(s) Received: A. ??Sigmoid polyp B. ??Rectal mass Clinical History: Rectal bleeding; clinical diagnosis code: ??K62.5 Gross Description: A. ?Received in formalin labelled with proper patient identification (initials C, D) and sigmoid polyp is a single pink-dempsey tissue fragment (0.2 x 0.2 x 0.2 cm). Submitted intact in A1. B. ?Received in formalin labelled with proper patient identification (initials C, D) and rectal mass are three pink-dempsey tissues (0.2 x 0.1 x 0.1 cm, 0.2 x 0.2 x 0.2 cm and 0.3 x 0.2 x 0.2 cm). Entirely submitted in B1. LANEY Clement (ASCP) 03/27/2018 4:39 PM End of Report [facility] 03/27/2018 15:4 7 EDT 03/27/2018 15:47 EDT Jeff Toney MD PATHOLOGY ORDERABL ES [facility] [address] [place] [address] documented in this encounter Visit Diagnoses Not on filedocumented in this encounter Care Teams Geophysical Laboratory Chief Relationship Specialty Start Date End Date Musa Olivarez MD [address] [place] [id number] PCP - General 01/15/13 documented as of this encounter
--- OUTSIDE RECORDS SUMMARY | 2024-03-08 14:23 | XMS_ITS | Encounter Summary ---
Author Organization Health system Address [address] [place] [address] Care Team Providers Care Mail Processing Associate Name Role Phone Radha Magallon NP Primary Care Provider [phone] Encounter Details Date Type Department Care Team (Late st Contact Info) Description 01/10/2013 Results Only [facility] [phone] Logan Paulson, [address] [place], [place] [id number] Social History Tobacco Use Types Packs/Day Years Used Date Smoking Tobacco: Never Assessed Sex and Gender Information Value Date Recorded Sex Assigned at Not on file Gender Identity Not on file Sexual Orientation Not on file documented as of this encounter Plan of Treatment Not on file documented as of this encounter Procedures Procedure Name Priority Date/Time Associated Diagnosis Comments SURGICAL PATHOLOGY Routine 01/10/2013 15 :55 EDT documented in this encounter Results * SURGICAL PATHOLOGY (01/10/2013 15:55 EDT) Pathology Report: SURGICAL PATHOLOGY REPORT Reports generated via electronic interface contain original data; however they are lacking the format of the original report. Caution should be taken when reading/interpreti ng unformatted reports. Name: ? MARCELO GRACE ? Accession #: ? [id number] ? : ? 1970 (Age: 42) ??M ? Collect Date: ? 01/10/2013 ? Location: ? [facility] ? Receive Date: ? 01/11/2013 ? Provider: LOGAN PAULSON DO Copy to: RENATE GONZALES MD ? Final Pathologic Diagnosis: A. ?Skin of back, left lateral mid, excision: 1. ?Epidermal reparative change and dermal scar. 2. ? No residual atypical melanocytic nevus identified. B. ?Skin of back, left mid, excision: 1. ?Epidermal reparative change and dermal scar. 2. ? No residual atypical melanocytic nevus identified. C. ?Skin of back, mid, excision: 1. ?Epidermal reparative change and dermal scar. 2. ?No residual atypical melanocytic nevus identified. D. ?Skin of back, right mid, excision: ?1. ?? Epidermal reparative change and dermal scar. ? 2. ?? No residual atypical melanocytic nevus identified. E. ?? Skin of shoulder, left lateral, excision: ? 1. ?? Epidermal reparative change and dermal scar. ? 2. ?? No residual atypical melanocytic nevus identified. Document reviewed and electronically signed by: CASTRO SIMONS MD Report ??Date: 01/14/2013 16:35 By the signature above, the attending physician certifies that he/she has personally conducted a gross and/or microscopic examination of the described specimens and rendered or confirmed the above diagnosis. Specimen(s) Received: A. ?Skin of back, left lateral mid B. ? Skin of back, left mid C. ? Skin of back, mid D. ? Skin of back, right mid E. ? Skin of shoulder, left lateral ? Clinical History: ? Skin atypia; 12 o'clock blank, 3 o'clock white, 6 o'clock blue, 9 o'clock black; clinical diagnosis code: 239.2 Gross Description: ? Received in formalin labelled Marcelo Grace and left lateral mid back is an oriented ellipse of skin with a white stitch indicating 3 o'clock, blue stitch indicating 6 o'clock, and black stitch indicating 9 o'clock which measures 1.6 cm 9 o'clock to 3 o'clock and 0.8 cm 6 o'clock to 12 o'clock and is excised to a depth of 0.4 cm. ??On the skin is a 0.6 x 0.4 cm, slightly roughened area likely indicating prior biopsy site. ??The 6 o'clock half is inked blue and the 12 o'clock half is inked black. ??The specimen is serially sectioned from 3 o'clock to 9 o'clock and entirely submitted as follows: BLOCK BORDEN A1 ?3 o'clock tip reverse en face A2 ?Central sections A3 ?9 o'clock tip reverse en face Received in formalin labelled Marcelo Grace and left mid back is an oriented ellipse of skin with a black suture marking 9 o'clock, blue suture marking 6 o'clock, and white suture marking 3 o'clock. ??The specimen measures 2.7 cm from 9 o'clock to 3 o'clock, 1.1 cm 12 o'clock to 6 o'clock, and is excised to a depth of 0.5 cm. ??On the skin is a 0.5 x 0.3 cm depression likely indicating prior biopsy site. ??The 6 o'clock half is inked blue and the 12 o'clock half is inked black. ??The specimen is serially sectioned from 3 o'clock to 9 o'clock and entirely submitted as follows: BLOCK BORDEN B1 ?3 o'clock tip reverse en face B2, B3 ?Central sections B4 ?9 o'clock tip reverse en face Received in formalin labelled Marcelo Grace and mid back is an oriented ellipse of skin with a white suture designating 3 o'clock, blue suture designating 6 o'clock, and black suture designating 9 o'clock. ??The specimen measures 1.9 cm 3 o'clock to 9 o'clock, 0.8 cm 12 o'clock to 6 o'clock, and is excised to a depth of 0.2 cm. ??On the skin is a 0.3 x 0.1 cm, depression likely indicating prior biopsy site. ??The 6 o'clock half is inked blue and the 12 o'clock half is inked black. ??The specimen is serially sectioned from 3 o'clock to 9 o'clock and entirely submitted as follows: BLOCK BORDEN C1 ?3 o'clock tip reverse en face C2 ?Central sections C3 ?9 o'clock tip reverse en face Received in formalin labelled Marcelo Grace and right mid back is an oriented ellipse of skin with a white suture designating 3 o'clock, blue suture designating 6 o'clock, and black suture designating 9 o'clock. ??The specimen measures 2.0 cm 3 o'clock to 9 o'clock, 0.7 cm 12 o'clock to 6 o'clock, and is excised to a depth of 0.3 cm. ??On the skin is a 0.5 x 0.3 cm, slightly depressed and roughened area likely designating prior biopsy site. ??The 6 o'clock half is inked blue and the 9 o'clock half is inked black. ??The specimen is serially sectioned from 3 o'clock to 9 o'clock and entirely submitted as follows: BLOCK BORDEN D1 ?3 o'clock tip reverse en face D2, D3 ?Central sections D4 ?9 o'clock tip reverse en face Received in formalin labelled Marcelo Grace and left lateral shoulder is an oriented elliptical excision of skin which has a white suture designating 3 o'clock, blue suture designating 6 o'clock, and black suture designating 9 o'clock. ??The specimen measures 1.4 cm 12 o'clock to 6 o'clock, 0.7 cm 3 o'clock to 9 o'clock, and is excised to a depth of 0.2 cm. ??The 3 o'clock half is inked blue and the 9 o'clock half is inked black. ??On the skin is an ill-defined, 0.2 x 0.1 cm depression likely representing (cut off).............. .................. which abuts a 0.4 x 0.2 cm, slightly raised, white papule. ??The specimen is serially sectioned from 12 o'clock to 6 o'clock and entirely submitted as follows: E1 ?12 o'clock tip reverse en face E2 ?Central sections E3 ?6 o'clock tip reverse en face (Dr. Encarnacion)/[facility] ?? End of Report JUAN JOSE LANDA 01/10/2013 15:5 5 EDT 01/11/2013 15:55 EDT Logan Paulson DO PATHOLOGY ORDER JACOBO Performing Organization Address City/State/[facility] Co de Phone Number JUAN JOSE LANDA [address] [place] [address] documented in this encounter Visit Diagnoses Not on filedocumented in this encounter Care Teams Mail Processing Associate Relationship Specialty Start Date End Date Radha Magallon [place] [address] PCP - General 02/15/12 01/14/13 documented as of this encounter
--- OUTSIDE RECORDS SUMMARY | 2024-03-08 14:23 | XMS_ITS | Encounter Summary ---
Author Organization [facility] [id number] Care Team Providers Care Video Library Assistant Name Role Phone Vickie Wolf APRN Primary Care Provider Reason for Referral * Diagnostic Test (Routine) - Closed Specialty Diagnoses / Procedures Referred By Contac t Referred To Contact Radiology Diagnoses Rectal polyp Procedures MRI Pelvis (Rectal Cancer Staging) Micha Reynolds MD [facility] [place] [address] [place] [address] Referral ID Status Reason Start Date Expiration Date V isits Requested Visits Authorized [id number] Closed Specialty Service Requested 04/23/2018 06/21/2018 1 1 Reason for Visit * Diagnostic Test (Routine) - Closed Specialty Diagnoses / Procedures Referred By Contac t Referred To Contact Radiology Diagnoses Rectal polyp Procedures MRI Pelvis (Rectal Cancer Staging) Micha Reynolds MD [facility] [address] [place] [address] [place] [address] Referral ID Status Reason Start Date Expiration Date V isits Requested Visits Authorized [id number] Closed Specialty Service Requested 04/23/2018 06/21/2018 1 1 Encounter Details Date Type Department Care Team (Latest Contact Info) Description 05/07/2018 2:18 PM EDT - 05/07/2018 11:59 PM EDT Hospital Encounter MRI at [facility] [place] [phone] Micha Reynolds MD [facility] [place] [phone] Rectal polyp Discharge Disposition: Home Social History Tobacco Use [...] Procedure Name Priority Date/Time Associated Diagnosis Comments MRI PELVIS(RECTAL CANCER STAGING) Routine 05/07/2018 4:05 PM EDT Rectal polyp documented in this encounter Results * MRI Pelvis (Rectal Cancer Staging) (05/07/2018 4:05 PM EDT) Anatomical Region Laterality Modality Pelvis Magnetic Resonan ce Impressions 05/08/2018 9:34 AM EDT 1. ?? Rectal cancer T category T1/T2; details above. References: Primary Tumor TX- Can?t be assessed T0- No tumor identified Tis- Intraepithelial or invasion of lamina propria T1- Tumor invades submucosa T2- Tumor invades muscularis propria T3- Tumor invades through the muscularis propria into lesly-colorectal tissues T4a- Tumor penetrates to the surface of visceral peritoneum T4b- Tumor directly invades/adherent to other organs/structures Narrative 05/08/2018 9:34 AM EDT EXAMINATION: MRI PELVIS(RECTAL CANCER STAGING) CLINICAL HISTORY: history of large rectal polyp, exam concerning for local invasion, TECHNIQUE: Multisequence, multiplanar high-resolution MRI of the pelvis was performed prior to and following intravenous administration of 20mL of Dotarem. Endorectal gel was utilized. COMPARISON: None FINDINGS: TUMOR: Distance from caudal tumor margin to anal verge: Approximately 2 to 3 cm Distance from caudal tumor margin to top of anal sphincter: The lesion abuts the anal sphincter Relationship to puborectal sling: Abuts Craniocaudal tumor length: 3.5cm Location: 7 o?clock to 12:00 (series 7, image 32) Morphology: Polypoid lesion with broad base which exhibits enhancement EXTRAMURAL INVASION & T CATEGORY: Depth of extramural spread: None T category: T1/T2. The lesion invades submucosa and abuts but does not traverse the muscularis propria. LYMPH NODES, VENOUS INVASION AND TUMOR DEPOSITS: Morphologically suspicious mesorectal lymph nodes: [Recommended size threshold is 8mm short axis]: None Suspicious extramesorectal lymph nodes: None Suspicious HUBER lymph nodes?: ??None Extramural venous invasion: Absent OTHER FINDINGS: Small bowel: Normal Reproductive structures: Normal Osseous structures: No marrow signal abnormality Procedure Note Nolan Kebede MD - 05/08/2018 EXAMINATION: MRI PELVIS(RECTAL CANCER STAGING) CLINICAL HISTORY: history of large rectal polyp, exam concerning forlocal invasion, TECHNIQUE: Multisequence, multiplanar high-resolution MRI of the pelviswas performed prior to and following intravenous administration of 20mL ofDotarem. Endorectal gel was utilized. COMPARISON: None FINDINGS: TUMOR: Distance from caudal tumor margin to anal verge: Approximately 2 to 3 cm Distance from caudal tumor margin to top of anal sphincter: The lesionabuts the anal sphincter Relationship to puborectal sling: Abuts Craniocaudal tumor length: 3.5cm Location: 7 o?clock to 12:00 (series 7, image 32) Morphology: Polypoid lesion with broad base which exhibits enhancement EXTRAMURAL INVASION & T CATEGORY: Depth of extramural spread: None T category: T1/T2. The lesion invades submucosa and abuts but does nottraverse the muscularis propria. LYMPH NODES, VENOUS INVASION AND TUMOR DEPOSITS: Morphologically suspicious mesorectal lymph nodes: [Recommended sizethreshold is 8mm short axis]: None Suspicious extramesorectal lymph nodes: None Suspicious HUBER lymph nodes?: None Extramural venous invasion: Absent OTHER FINDINGS: Small bowel: Normal Reproductive structures: Normal Osseous structures: No marrow signal abnormality IMPRESSION 1. Rectal cancer T category T1/T2; details above. References: Primary Tumor TX- Can?t be assessed T0- No tumor identified Tis- Intraepithelial or invasion of lamina propria T1- Tumor invades submucosa T2- Tumor invades muscularis propria T3- Tumor invades through the muscularis propria into lesly-colorectaltissues T4a- Tumor penetrates to the surface of visceral peritoneum T4b- Tumor directly invades/adherent to other organs/structures 9:34 AM Micha Reynolds MD IMG MRI ORDERABLES documented in this encounter Visit Diagnoses Diagnosis Rectal polyp Anal and rectal polyp documented in this encounter Administered Medications Inactive Administered Medications - up to 3 most recent administrations Medication Order MAR Action Action Date Dose Rate Site gadoterate meglumine (DOTAREM) 0.5 mmol/mL (376.9 mg/mL) injection 0-20 mL 0-20 mL, Intravenous, ONCE PRN, 1 dose, Starting on Mon05/07/18 at 1557, Until Mon05/07/18 at 1557, Per Protocol, Radiology Contrast, Routine Given 05/07/2018 3:57 PM EDT 20 mLs documented in this encounter Care Teams Video Library Assistant Relationship Specialty Start Date End Date Vickie Wolf, SOLID WASTE TECHNICIAN [address] [place] [address] [address] [facility] [address] [place] [address] PCP - General Family Medicine 05/07/18 05/20/22 documented as of this encounter
--- OUTSIDE RECORDS SUMMARY | 2024-03-08 14:23 | XMS_ITS | Encounter Summary ---
Author Organization Formerly [facility] [place] [address] Care Team Providers Care Territory Manager General Sales Name Role Phone Luciano Vickie Paige BECERRA Primary Care Provider Reason for Visit * Auth/Cert Specialty Diagnoses / Procedures Referred By Roselyn laurent Referred To Contact Diagnoses Rectal polyp RECTAL POLYP Procedures PRO EXC RECTAL TUMOR, TRANSANAL APPROACH, NOT INCL MUSCULARIS PROPRIA EXCISION RECTAL TUMOR, TRANSANAL APPROACH, PARTIAL THICKNESS (WRVU 8.13) Referral ID Status Reason Start Date Expiration Date Visits Re quested Visits Authorized [id number] 1 1 Encounter Details Date Type Department Care Team (Late st Contact Info) Description 05/11/2018 9:38 AM EDT - 05/11/2018 11:34 AM EDT Surgery [place] [address] Mich[facility] Reynolds [facility] [place] [address] EXCISION RECTAL TUMOR, TRANSANAL APPROACH, FULL THICKNESS (WRVU 12.13) Social History Tobacco Use Types Packs/Day Years Used Date Smoking Tobacco: Never Smokeless Tobacco: Never Sex and Gender Information Value Date Recorded Sex Assigned at Not on file Gender Identity Not on file Sexual Orientation Not on file documented as of this encounter Last Filed Vital Signs Vital Sign Reading Time Taken Comments Blood Pressure 120/91 05/11/2018 11:15 AM EDT Pulse 54 05/11/2018 9:04 AM EDT Temperature 36.3 ??C (97.3 ??F) 05/11/2018 10:30 AM E DT Respiratory Rate 16 05/11/2018 9:04 AM EDT Oxygen Saturation 94% 05/11/2018 11:30 AM EDT Inhaled Oxygen Concentration - - Weight 93 kg (205 lb) 05/11/2018 9:04 AM EDT Height 182.9 cm (6') 05/11/2018 9:04 AM EDT Body Mass Index 27.8 05/11/2018 9:04 AM EDT documented in this encounter Discharge Instructions * Discharge Instructions* Irene Sherwood RN - 05/11/2018 11:15 AM EDT POST ANESTHESIA INSTRUCTIONS Go home, rest, use caution on stairs. Change positions slowly. Do not smoke if you are alone. Diet light to regular as tolerated today. If nausea occurs start with clear liquids and progress slowly. No driving, operating machinery, alcoholic beverages and no important decisions for 24 hours. Monitor IV site for signs and symptoms of infection: increasing redness, swelling, foul drainage, if occurs contact M.D. Patients who have had endotrachial tubes (this tube, used by anesthesia department, is passed down your throat after you are asleep, to ensure safe air passage during your operation). A sore throat is normal due to the tube. Cold liquids or soothing lozenges will help ease the discomfort. The generalized muscle aches are due to the medication given to you just before the tube is inserted. As the medication wears off, you may develop muscle soreness, which usually goes away in 12-24 hours. * Patient Instructions* Micha Reynolds MD - 05/11/2018 11:08 AM EDT DIVISION OF COLON & RECTAL SURGERY Anorectal Surgery Patient Post-operative Discharge Instructions 1. Wound Care ?? If there is a dressing, please leave the dressing intact today and remove it tomorrow morning. If you need to move your bowels, the dressing may be removed sooner. ?? Expect some drainage - this may be residual pus, or may be a small amount of blood or mucus - this is normal / expected. It may last for a 2-3 weeks. ?? Please use fluffy 4x4 gauze to absorb any drainage and keep your bottom dry. ?? You may have some packing your wound that you should remove in the sitz bath tomorrow morning. ?? Please use a sitz bath or shower 3 - 4X per day (starting tomorrow morning). ?? Sitz bath instructions: Soak your buttocks in plain warm tapwater for 15 minutes 4X/day and after bowel movements. This is comforting and also increase blood flow to the area to aid in healing. ?? You may sit on a pillow but do not sit on donut cushions as it spreads the buttocks. 2. Pain medications ?? A local anesthestic numbing block was performed during your procedure for postoperative pain control. ?? Please take [id number] pain medications for post-operative discomfort. ?? Acetaminophen (Tylenol) 1000 mg by mouth every 6 hours. ?? Ibuprofen (Motrin/Advil) 600 mg by mouth every 6 hours with food & plenty of liquids or Naproxen (Aleve) 500 mg twice daily. Take either Ibuprofen or Naproxen not both. ?? You may alternate these medications every 3 hours; ex. Tylenol at 12pm, Ibuprofen at 3pm, Tylenol at 6pm, Ibuprofen at 9 pm. ?? In addition, if your pain is uncontrolled with the medications above, please use prescribed narcotic pain medication if given to you. As you use less pain medication, narcotics should be the firstto eliminate. ?? Narcotic pain medication is known to cause constipation. 3. Avoid getting constipated ?? Drink plenty of water and fluids (over 2 liters per day). ?? Each morning please take a daily fiber supplement (such as Citrucel or BeneFiber), one heaping tablespoon in 8 oz. of water. (MiraLax may be recommended instead of fiber) ?? While taking narcotic pain medications please also take a stool softener (Colace 100 mg two to three times per day), which can be purchased over the counter. ?? If you do not have a bowel movement in 48 hours then take 60 cc of Milk of Magnesia every 12 hours until you have a bowel movement. If you do not have a bowel movement after 2 doses of Milk of Magnesia please call (see below). 4. When to call ?? Fever > 101.5 F ?? worsening pain ?? active bleeding, passing blood clots ?? difficulty/inability to pass urine (urinary retention) or stool (constipation) ?? any other worrisome condition or question ?? during regular work hours call the Surgery Clinic at ?? after hours / nights / weekends / holidays: call and ask for the General Surgery Resident doctor On-Call. ?? Follow-up. You will have a post-operative follow-up appointment with your Surgical Team scheduled, usually in 2 - 4 weeks. If you have any questions, please call . Division of Colon and Rectal Surgery, [facility] [address] ??? JUSTEN Velásquez [phone] ??? documented in this encounter Progress Notes * Irene Sherwood RN - 05/11/2018 12:00 PM EDT Patient discharge to home. IV removed, site benign. My assessment remains unchanged from my previous assessment. RN Discussed pain management with patient, pain tolerable. Patient has all belongings and supplies needed. Patient received After Visit Summary. This was reviewed and family with patient, patient verbalizes understanding of AVS. All questions answered. Patient encouraged to call with questions or concerns. Patient discharged to home with family. documented in this encounter H&P Notes * Micha Reynolds MD - 05/11/2018 9:26 AM EDT Patient Name: Marcelo Pitt Patient Age: 47 y.o. Birthdate: 1970 Admit date: 05/11/2018 Attending Physician: Micha Reynolds MD Patient Vitals for the past 24 hrs: BP Temp Temp src Pulse Resp SpO2 Height Weight 05/11/18 0904 131/77 36.3 ??C (97.3 ??F) Temporal 54 16 99 % 182.9 cm (6') 93 kg (205 lb) No acute changes to HPI, Meds, PMH, PSH since last evaluation Aa0x3, nad Eomi, errla, Non labored breathing rrr Abd s/nt/nd Ext no cyanosis or edema Ok to proceed with scheduled case. Micha Reynolds MD documented in this encounter Miscellaneous Notes * Op Note - Micha Reynolds MD - 05/11/2018 11:14 AM EDT [facility] Operative Note Patient Name: Marcelo Pitt : [id number] MR#: [id number] Case Date: 05/11/2018 Surgeon: Surgeon(s) and Role: * Micha Reynolds MD - Primary Preoperative diagnosis: RECTAL POLYP Postoperative diagnosis: RECTAL POLYP Procedure(s): EXCISION RECTAL TUMOR, TRANSANAL APPROACH, FULL THICKNESS (WRVU 12.13) Anesthesia: General Estimated Blood Loss: * No values recorded between 05/11/2018 10:02 AM and 05/11/2018 10:22 AM * Specimens removed during surgery: Order Name Source Comment Collection Info Order Time SPECIMEN TO PATHOLOGY RECTAL POLYP Distal rectal polyp excision No 05/11/2018 10:09 AM Number of tissue samples (in container) 1 Time specimen removed from patient: 10:09 AM SPECIMEN TO PATHOLOGY Pin at 5 : Distal margin Pin at 6: Right Posterior Pin at 16: Proximal RECTAL POLYP Distal Rectal Polyp excision 05/11/2018 10:21 AM Number of tissue samples (in container) 1 Time specimen removed from patient: 10:18 AM Drains: None Surgical Closure: Other Than Primary Closure - deep and superficial layers are left completely openduring original surgery Disposition: aroused from sedation, and taken to the recovery room in a stable condition Condition: doing well without problems (Please see the Surgical Encounter Summary for any Implant and Specimen details pertinent to this patient.) HPI/Surgical Indications: 47y male with rectal bleeding and large endoscopically unresectable rectal polyp. Risks, benefits, and alternatives to exam under anesthesia with full thickness rectal biopsy were discussed in detail including, bleeding, infection , need for additional surgery. All of his questions were answered to his satisfaction. GIven the concerning clinical exam findings, an MRI wasperformed suggesting sub mucosal invasion T1/T2. Procedure Description: After appropriate identification and obtaining informed consent in the pre-op holding area, the patient was brought to the operating theater, placed prone on the operating table and conscious sedation was administered. The perineum was prepped with chlorhexidine and the buttocks gently taped apart for exposure. The patent was draped in the usual fashion. A surgical safety timeout was performed and all present were in agreement. Due to the nature of the procedure, VTE and IV antibiotic prophylaxis are not indicated. A perianal block was performed with 30mL of 1%lidocaine mixed 50/50 with 0.25% marcaine with 1:100,000 epinepherine. The rectum was examined with a well lubricated digit and revealed normal tone, firm right anterior quadrant mass and there was mild bleeding. After introducing a well lubricated lighted Hirschman anoscope, examination of the anal canal revealed normal appearing mucosa, right anterior quadrant polypoid, friable mass, no other findings. After introduction of a well lubricated Monroe noguera retractor, several pieces of the polyp were dislodged, these were retrieved and sent for pathology to examine. The mass, which was immediately adjacent to the dentate line and the right anterior hemorrhoidal column was then grasped at the base and excised to allow for a full thickness biopsy, given the distal margin would be in the center of the hemorrhoidal column, this area was not excised to 1cm. This was then oriented on a suture box andsent for examination. The site had minimal bleeding, this was easily controlled with application ofMonsel's solution. All counts were reported correct at the end of the case. Infection Bundle used? N/A Attestation: Case Date: 05/11/2018 I performed this procedure without the involvement of a resident. Micha Reynolds MD 05/11/2018 documented in this encounter Plan of Treatment Not on file documented as of this encounter Procedures Procedure Name Priority Date/Time Associated Diagnosis Comments SPECIMEN TO PATHOLOGY Routine 05/11/2018 10:21 AM EDT SURGICAL PATHOLOGY REPORT Routine 05/11/2018 10:09 AM EDT SPECIMEN TO PATHOLOGY Routine 05/11/2018 10:09 AM EDT EXCISION RECTAL TUMOR, TRANSANAL APPROACH, FULL THICKNESS (WRVU 12.13) 05/11/2018 9:49 AM EDT RECTAL POLYP documented in this encounter Results * Specimen to Pathology (05/11/2018 10:21 AM EDT) AP Specimen 05/11/2018 10:2 1 AM EDT 05/11/2018 10:[address] [facility] - 05/11/2018 10:45 AM EDT Specimen requisition ordered. ??Separate Pathology report to follow Resulting Agency Comment Spec In Lab Micha Reynolds MD PATHOLOGY/CYTOLOGY O RDERABLES [facility] [place] [address] * Surgical Pathology Report (05/11/2018 10:09 AM EDT) Surgical Pathology Report [id number] ? Location: [facility]; DE39; A The signing pathologist has (i) examined the relevant preparation(s) for the specimen(s) and (ii) rendered or confirmed the diagnosis(es). . ? Addendum ADDENDUM DISCUSSION This case has been reviewed by Carmelo Pace MD, PhD of ?[facility] 's [facility] ([facility]) ??by report dated 06/26/2018 with the accession number [id number]. The ??[facility] 's [facility] ([facility]) diagnosis is in agreement with our diagnosis. ??For the full text of the [facility] report(s, please refer to Non-DH Documentation Pathology in the electronic health record (eDH). Electronically signed by: ??Dar WISE, Leida Verified: ??08/10/2018 ?Pathologist Performed at: ??-[facility] Dept. of Pathology, [place], [place] ? Addendum ADDENDUM DISCUSSION Mismatch repair protein immunohistochemistry testing Interpretation: Immunostains for MLH1, MSH2, MSH6 and PMS2 reveal intact nuclear staining in tumor cells. ??In a very small percentage of tumors, there may still be an underlying hereditary defect in these DNA mismatch repair genes despite intact nuclear expression of the protein in tumor cells ?? . Genetic counseling and/or additional workup is indicated in patients with a family history that meets current criteria for HNPCC screening. Immunohistochemistry Studies: These IHC studies provide the pathologist with adjunctive diagnostic information. Antibody specificity has been verified by testing antibodies on a series of in-house tissues with known immunohistochemical performance characteristics. The clinical interpretation of any antibody positive staining or its absence is evaluated within the context of clinical presentation, morphology, histopathological criteria and other diagnostic tests. Block ? Antibody ? Result (Positive/Negative) A3 ? MLH1 ?Positive, intact nuclear staining ? MSH2 ?Positive, intact nuclear staining ? MSH6 ?Positive, intact nuclear staining ? PMS2 ?Positive, intact nuclear staining Immunohistochemical assay was performed on paraffin-embedded tissue sections fixed in 10% neutral buffered formalin for 6-72 hours using the polymer system technique with appropriate controls. The assay was performed according to the construction manager ?' instructions using anti-MLH-1 ([id number]), anti-MSH-2 ([id number]), anti-MSH-6 (44), and anti-PMS-2 (MRQ-28) antibodies. Electronically signed by: ??Robson Ta MD, I Verified: ??06/19/2018 ?Pathologist Performed at: ??-[facility] Dept. of Pathology, [place], [place] ?Surgical Pathology DIAGNOSIS A - Distal rectum, ??polypectomy: . 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 Margin can not be evaluated due to the fragmental nature of the specimen. B - Distal rectum, ??polypectomy: Well differentiated adenocarcinoma (at least 0.5 cm) arising in an tubulovillous adenoma with high grade dysplasia, focally invading into submucosa (pT1). The deep resection margin is at least 0.2 cm away from the tumor. The lateral mucosal resection margin is focally involved by dysplasia. Electronically signed by: ??Leida Dodge MD Verified: ??05/17/2018 ?Pathologist Performed at: ??-[facility] Dept. of Pathology, [place], [place] DISCUSSION Dr. Ashley Valero concurred with the diagnosis. ADDITIONAL STUDIES Whole slide scan: [id number] [id number] B2-1 CLINICAL INFORMATION Specimen Submitted: A - Distal rectal polyp B - Distal rectal polyp Clinical History and Diagnosis: Rectal polyp SPECIMEN PROCESSING A - ??Labeled/Fixative: Distal rectal polyp, fresh. Quantity/Size: Multiple, 3.1 x 2.0 x 1.1 cm overall. Tissue Description: Multiple fragments of soft, polypoid, bosselated brown tissue. Smaller fragments are submitted in toto and a larger fragment is serially sectioned and entirely submitted in A2-3. Sections/Processing: (T3) B - ??Labeled/Fixative: Distal rectal polyp, fresh. Quantity/Size: Single, 1.9 cm distal-proximal by 1.3 cm left-right; by 0.9 cm superficial-deep. Tissue Description: Soft, friable, brown bosselated lesion with three pins on a numbered foam board. Specimen is designated by surgeon as follows pin at 5: Distal margin; pin at 6: Right posterior; pin at 16: Proximal. Right edge of specimen/right deep margin (numbered 6) inked black and opposing left edge/deep margin (unlabeled) inked blue. The specimen is serially sectioned from proximal (numbered 16) to distal (numbered 5). Sections/Processing: (1) 2 consecutive sections from proximal; (2) 2 consecutive sections middle; (3) 3 consecutive sections distal. ??(T3) ??[facility] 05/11/2018 10:0 9 AM EDT Micha Reynolds MD PATHOLOGY/CYTOLOGY O JEFF Performing Organization Address [facility] Co de Phone Number [facility] [place] [address] * Specimen to Pathology (05/11/2018 10:09 AM EDT) AP Specimen 05/11/2018 10:0 9 AM EDT 05/11/2018 10:[address] [facility] - 05/11/2018 10:45 AM EDT Specimen requisition ordered. ??Separate Pathology report to follow Resulting Agency Comment Spec In Lab Micha Reynolds MD PATHOLOGY/CYTOLOGY O JEFF Performing Organization Address [facility] Co de Phone Number [facility] [place] [address] documented in this encounter Visit Diagnoses Not on filedocumented in this encounter Administered Medications Inactive Administered Medications - up to 3 most recent administrations Medication Order MAR Action Action Date Dose Rate Site acetaminophen (TYLENOL) tablet 1,000 mg 1,000 mg, Oral, ONCE, 1 dose, On Mon05/11/18 at 0930, Administer with SIP of H2O only., Day of Surgery (Day of Procedure), Routine Given 05/11/2018 9:06 AM EDT 1,000 mg BUpivacaine-EPINEPHrin e 0.25 %-1:200,000 injection ONCE PRN, Starting on Mon05/11/18 at 1021, Until Mon05/11/18 at 1407, Intra-Operative (Intra-Procedure), Routine Given 05/11/2018 10:21 AM EDT 15 mLs 19- Surgical Site gabapentin (NEURONTIN) capsule 600 mg 600 mg, Oral, ONCE, 1 dose, On Mon05/11/18 at 0930, Administer with SIP of H2O only., Day of Surgery (Day of Procedure), Routine Given 05/11/2018 9:07 AM EDT 600 mg lactated Ringers infusion 1,000 mL 1,000 mL, at 100 mL/hr, Intravenous, CONTINUOUS, Starting on Mon05/11/18 at 0930, Until Mon05/11/18 at 1159, Day of Surgery (Day of Procedure) New Bag 05/11/2018 9:07 AM EDT 1,000 mLs 100 mL/hr lidocaine (PF) (XYLOCAINE) 10 mg/mL (1 %) injection ONCE PRN, Starting on Mon05/11/18 at 1022, Until Mon05/11/18 at 1407, Intra-Operative (Intra-Procedure), Routine Given 05/11/2018 10:22 AM EDT 15 mg 19- Surgical Site sodium phosphates (FLEET) 19-7 gram/118 mL rectal enema 1 Bottle 1 Bottle, Rectal, ONCE, 1 dose, On Mon05/11/18 at 0930, Patient to self-administer Fleet enema on commode. If patient administered at home disregard., Day of Surgery (Day of Procedure), Routine Given 05/11/2018 9:41 AM EDT 1 Bottle documented in this encounter Active and Recently Administered Medications Times are shown in EDT. Scheduled Medication Order 05/09/2018 05/10/2018 05/11/2018 acetaminophen (TYLENOL) tablet 1,000 mg (COMPLETED) 1,000 mg, Oral, ONCE, 1 dose, On Mon05/11/18 at 0930, Administer with SIP of H2O only., Day of Surgery (Day of Procedure), Routine 905 (Given - Provid er: Alphonse Carlisle RN) gabapentin (NEURONTIN) capsule 600 mg (COMPLETED) 600 mg, Oral, ONCE, 1 dose, On Mon05/11/18 at 0930, Administer with SIP of H2O only., Day of Surgery (Day of Procedure), Routine 906 (Given - Provid er: Alphonse Carlisle RN) sodium phosphates (FLEET) 19-7 gram/118 mL rectal enema 1 Bottle (COMPLETED) 1 Bottle, Rectal, ONCE, 1 dose, On Mon05/11/18 at 0930, Patient to self-administer Fleet enema on commode. If patient administered at home disregard., Day of Surgery (Day of Procedure), Routine 940 (Given - Provid er: Alphonse Carlisle RN) Continuous Medication Order 05/09/2018 05/10/2018 05/11/2018 lactated Ringers infusion 1,000 mL (CANCELED) 1,000 mL, at 100 mL/hr, Intravenous, CONTINUOUS, Starting on Mon05/11/18 at 0930, Until Mon05/11/18 at 1159, Day of Surgery (Day of Procedure) 0907 (New Bag - Prov ider: Alphonse Carlisle RN) PRN Medication Order 05/09/2018 05/10/2018 05/11/2018 BUpivacaine-EPINEPHrine 0.25 %-1:200,000 injection (CANCELED) ONCE PRN, Starting on Mon05/11/18 at 1021, Until Mon05/11/18 at 1407, Intra-Operative (Intra-Procedure), Routine 1021 (Given - Provid er: Micha Reynolds MD - Comment: Mixed wilth 1% Lidocain 1:1) lidocaine (PF) (XYLOCAINE) 10 mg/mL (1 %) injection (CANCELED) ONCE PRN, Starting on Mon05/11/18 at 1022, Until Mon05/11/18 at 1407, Intra-Operative (Intra-Procedure), Routine 1022 (Given - Provid er: Micha Reynolds MD - Comment: Mixed with 0.25% with epi 1:1) documented in this encounter Care Teams Territory Manager General Sales Relationship Specialty Start Date End Date Vickie Wolf APRN [address] [place] [address] PCP - General Family Medicine 05/07/18 05/20/22 documented as of this encounter
--- OUTSIDE RECORDS SUMMARY | 2024-03-08 14:23 | XMS_ITS | Encounter Summary ---
Author Organization [facility] Address [address] [place] [address] Care Team Providers Care Pediatric Cns Name Role Phone Unavailable Primary Care Provider Unavailabl e Encounter Details Date Type Department Care Team (Late st Contact Info) Description 02/09/2012 Results Only [facility] [phone] Logan Paulson, [address] [place] [address] Social History Tobacco Use Types Packs/Day Years Used Date Smoking Tobacco: Never Assessed Sex and Gender Information Value Date Recorded Sex Assigned at Not on file Gender Identity Not on file Sexual Orientation Not on file documented as of this encounter Plan of Treatment Not on file documented as of this encounter Procedures Procedure Name Priority Date/Time Associated Diagnosis Comments SURGICAL PATHOLOGY Routine 02/09/2012 0:00 EDT documented in this encounter Results * SURGICAL PATHOLOGY (02/09/2012 0:00 EDT) Pathology Report: SURGICAL PATHOLOGY REPORT Reports generated via electronic interface contain original data; however they are lacking the format of the original report. Caution should be taken when reading/interpreti ng unformatted reports. Name: ? MARCELO GRACE ? Accession #: ? [id number] ? : ? 1970 (Age: 41) ??M ? Collect Date: ? 02/09/2012 ? Location: ? [facility] ? Receive Date: ? 02/09/2012 ? Provider: LOGAN PAULSON DO Copy to: [facility] [facility] [employer] ? Final Pathologic Diagnosis: A. ?Nasal contents, right, evacuation: 1. ?Chronic rhinitis with eosinophils. B. ?Frontal recess, right, biopsy: 1. ?Polypoid chronic sinusitis with eosinophils. C. ?Nasal contents, left, evacuation: 1. ?Chronic rhinitis with eosinophils. D. ?Nasopharynx, left, biopsy: 1. ?Respiratory mucosa with chronic inflammation. E. ?Ethmoid, left, biopsy: 1. ?Chronic sinusitis with eosinophils. F. ?Frontal recess, left, biopsy: 1. ?Polypoid chronic sinusitis with eosinophils. G. ?Maxillary contents, left, evacuation: 1. ?Chronic sinusitis with eosinophils. H. ?Ethmoid, left, biopsy: 1. ?Chronic sinusitis with eosinophils. ?? Document reviewed and electronically signed by: DARLENE CONTE MD Report ??Date: 02/14/2012 17:32 By the signature above, the attending physician certifies that he/she has personally conducted a gross and/or microscopic examination of the described specimens and rendered or confirmed the above diagnosis. Specimen(s) Received: A. ?Right nasal contents B. ? Right frontal recess C. ? Left nasal contents D. ? Left nasopharynx E. ? Left ethmoid F. ? Left frontal recess G. ? Left maxillary contents H. ? Left ethmoid Clinical History: ? Chronic pansinusitis, nasal polyps; clinical diagnosis code: 473.0 ? Gross Description: ? Received in formalin in a suction device labelled 'Camber, Marcelo and right nasal contents are dempsey-pink, focally hemorrhagic soft tissues that measure 2.0 x 1.5 x 0.5 cm in aggregate. ??The specimen is entirely submitted as (A1) and (A2). Received in formalin labelled Camber, Marcelo and right frontal recess are two small tissue fragments measuring 0.4 and 0.7 cm in maximum dimension. ??The specimen is entirely submitted in one cassette. Received in formalin in a suction device labelled 'Camber, Marcelo and left nasal contents are dempsey-pink, markedly hemorrhagic soft tissue fragments that measure 3.0 x 3.0 x 0.7 cm in aggregate. ??The specimen is entirely submitted as (C1) and (C2). Received in formalin labelled Camber, Marcelo and left nasopharynx are two dempsey-white pieces of cartilaginous tissue measuring 0.5 and 0.7 cm in maximum dimension. ??The specimen is entirely submitted in one cassette as (D). Received in formalin labelled Camber, Marcelo and left ethmoid are three dempsey-white fragments of cartilaginous tissue ranging from 0.4 to 1.5 cm in maximum dimension. ??The specimen is entirely submitted as (E). Received in formalin labelled Camber, Marcelo and left frontal recess is a dempsey-white piece of cartilaginous tissue measuring 0.4 x 0.4 x 0.2 cm. ??The specimen is entirely submitted in one cassette as (F). Received in formalin in a suction device labelled 'Camber, Marcelo and left maxillary contents are dempsey-pink, focally hemorrhagic soft tissue fragments ranging from 1.0 x 0.4 x 0.4 cm. ??The specimen is entirely submitted in one cassette as (G). Received in formalin in a suction device labelled 'Sweetie, Marcelo and left ethmoid are dempsey-pink soft tissue fragments measuring 1.5 x 0.7 x 0.3 cm. ??The specimen is entirely submitted as (H). ?? (Dr. Schilling)/[facility] End of Report JUAN JOSE LANDA 02/09/2012 02/09/2012 20: 01 EDT Logan Paulson DO PATHOLOGY ORDER JACOBO [facility] [address] [place] [address] documented in this encounter Visit Diagnoses Not on filedocumented in this encounter
--- OUTSIDE RECORDS SUMMARY | 2024-03-08 14:23 | XMS_ITS | Encounter Summary ---
Author Organization [facility] [place] [address] Care Team Providers Care Tube Blower Name Role Phone Luciano Vickie Paige BECERRA [...] Expiration Date Visits Re quested Visits Authorized [id number] 1 1 Encounter Details Date Type Department Care Team (Latest Contact Info) Description 05/11/2018 8:45 AM EDT - 05/11/2018 12:07 PM EDT Hospital Encounter [place] [address] Mich[facility] [place] [address] Discharge Disposition: Home Social History Tobacco Use [...] 16 05/11/2018 9:04 AM EDT Oxygen Saturation 96% 05/11/2018 11:45 AM EDT Inhaled Oxygen Concentration - - [...] for postoperative pain control. ?? Please take feux-akx-yovvnux pain medications for post-operative discomfort. ?? Acetaminophen [...] . Division of Colon and Rectal Surgery, [facility] [address] ??? [place] [phone] ??? documented in this encounter Progress Notes [...] Reynolds MD - 05/11/2018 11:14 AM EDT [facility] Operative Note Patient Name: Marcelo Pitt : [id number] MR#: [id number] Case Date: 05/11/2018 Surgeon: Surgeon(s) and Role: [...] findings. After introduction of a well lubricated Hamilton noguera retractor, several pieces of the polyp [...] AM EDT 05/11/2018 10:45 AM EDT Narrative [facility] - 05/11/2018 10:45 AM EDT Specimen requisition ordered. ??Separate Pathology report to follow Resulting Agency Comment Spec In Lab Micha Reynolds MD PATHOLOGY/CYTOLOGY O RDERABLES [facility] [place] [address] * Surgical Pathology Report (05/11/2018 10:09 AM EDT) Surgical Pathology Report [id number] ? Location: [facility]; IA39; A The signing pathologist has (i) examined the relevant preparation(s) for the specimen(s) and (ii) rendered or confirmed the diagnosis(es). . ? Addendum ADDENDUM DISCUSSION This case has been reviewed by Carmelo Pace MD, PhD of ?[facility] 's [facility] ([facility]) ??by report dated 06/26/2018 with the accession number [id number]. The ??[facility] '[facility] ([facility]) diagnosis is in agreement with our diagnosis. ??For the full text of the [facility] report(s, please refer to Non- Documentation Pathology in the electronic health record (eDH). Electronically signed by: ??Leida Dodge MD Verified: ??08/10/2018 ?Pathologist Performed at: ??-[facility] Dept. of Pathology, [place], [place] ? Addendum ADDENDUM DISCUSSION Mismatch repair [...] The assay was performed according to the rigger chief ?' instructions using anti-MLH-1 (ES05), anti-MSH-2 ([id number]), anti-MSH-6 (44), and anti-PMS-2 (MRQ-28) antibodies. Electronically signed by: ??Robson Ta MD, I Verified: ??06/19/2018 ?Pathologist Performed at: ??-[facility] Dept. of Pathology, [place], [place] ?Surgical Pathology DIAGNOSIS A - Distal [...] Dodge MD Verified: ??05/17/2018 ?Pathologist Performed at: ??-[facility] Dept. of Pathology, [place], [place] DISCUSSION Dr. Ashley Valero concurred with the diagnosis. ADDITIONAL STUDIES Whole slide scan: [id number] CLINICAL INFORMATION Specimen Submitted: A - [...] middle; (3) 3 consecutive sections distal. ??(T3) ??[facility] 05/11/2018 10:0 9 AM EDT Micha Reynolds MD PATHOLOGY/CYTOLOGY O JEFF Performing Organization Address [facility] [place] [address] * Specimen to Pathology (05/11/2018 10:09 AM EDT) AP Specimen 05/11/2018 10:0 9 AM EDT 05/11/2018 10:45 AM EDT Narrative [facility] - 05/11/2018 10:45 AM EDT Specimen requisition ordered. ??Separate Pathology report to follow Resulting Agency Comment Spec In Lab Micha Reynolds MD PATHOLOGY/CYTOLOGY O JEFF Performing Organization Address [facility] [place] [address] documented in this encounter Visit Diagnoses Not [...] Given 05/11/2018 9:06 AM EDT 1,000 mg gabapentin (NEURONTIN) capsule 600 mg 600 mg, [...] 9:07 AM EDT 1,000 mLs 100 mL/hr sodium phosphates (FLEET) 19-7 gram/118 mL rectal [...] 1159, Day of Surgery (Day of Procedure) 09 (New Bag - Prov ider: Alphonse Carlisle [...] 1:1) documented in this encounter Care Teams Tube Blower Relationship Specialty Start Date End Date Vickie Wolf, MARIAM [address] [place] [address] PCP - General Family Medicine 05/07/18 05/20/22 documented as of this encounter
--- OUTSIDE RECORDS SUMMARY | 2024-03-08 14:23 | XMS_ITS | Encounter Summary ---
Author Organization [facility] Address [address] [place] [address] Care Team Providers Care Windows Application Packager Name Role Phone Radha Magallon NP Primary Care Provider [phone] Encounter Details Date Type Department Care Team (Late st Contact Info) Description 12/28/2012 Results Only [facility]- [facility] [place] [phone] Logan Paulson, [address] [place], [place] [id number] Social History Tobacco Use Types Packs/Day Years Used Date Smoking Tobacco: Never Assessed Sex and Gender Information Value Date Recorded Sex Assigned at Not on file Gender Identity Not on file Sexual Orientation Not on file documented as of this encounter Plan of Treatment Not on file documented as of this encounter Procedures Procedure Name Priority Date/Time Associated Diagnosis Comments SURGICAL PATHOLOGY Routine 12/28/2012 21 :09 EDT documented in this encounter Results * SURGICAL PATHOLOGY (12/28/2012 21:09 EDT) Pathology Report: SURGICAL PATHOLOGY REPORT Reports generated via electronic interface contain original data; however they are lacking the format of the original report. Caution should be taken when reading/interpreti ng unformatted reports. Name: ? MARCELO GRACE ? Accession #: ? [id number] ? : ? 1970 (Age: 42) ??M ? Collect Date: ? 12/28/2012 ? Location: ? [facility] ? Receive Date: ? 12/31/2012 ? Provider: LOGAN PAULSON DO Copy to: ? Final Pathologic Diagnosis: A. ?Skin of shoulder, right anterior, shave biopsy: 1. ?Melanocytic nevus, intradermal type. B. ?Skin of neck, right base, shave biopsy: 1. ?Melanocytic nevus, compound type. C. ?Skin of flank, left, shave biopsy: 1. ?Melanocytic nevus, compound type. Microscopic Description: ? (A-C) Sections are of a papule with mild epidermal hyperplasia and hyperkeratosis. ??There is a proliferation of melanocytes within the dermis. ??The proliferation consists of nests, cords, and strands that diminish in size with descent into the dermis. ??The melanocytes are slightly enlarged but generally have round-oval nuclei and a moderate amount of cytoplasm. ??The melanocytes show cardiovascular technician maturation. ??There are occasional intraepidermal nests on (B) and (C). (Dr. Sanon)/[facility] ?? Document reviewed and electronically signed by: BECCA BARRON MD Report ??Date: 01/01/2013 17:11 By the signature above, the attending physician certifies that he/she has personally conducted a gross and/or microscopic examination of the described specimens and rendered or confirmed the above diagnosis. Specimen(s) Received: A. ?Rt anterior shoulder (#1) B. ? Rt base of neck (#2) C. ? Left flank (#3) Clinical History: ? Melanocytic nevi; clinical diagnosis code: ??239.2 Gross Description: ? Received in formalin labelled Marcelo Grace and right anterior shoulder are two dempsey-burnett, mottled, irregular skin shaves measuring 0.4 x 0.3 cm and 0.8 x 0.3 cm. ??The smaller tissue is bisected and submitted entirely as (A1). ??The larger tissue is trisected and submitted as (A2). Received in formalin labelled Marcelo Grace and right base of neck is a dempsey, curling, 0.6 x 0.5 cm skin shave with an eccentric 0.5 x 0.3 x 0.2 cm slightly raised papule. ??The specimen is trisected and entirely submitted as (B1). Received in formalin labelled Marcelo Grace and left flank is a dempsey, curling, 0.6 x 0.5 cm skin shave. ??There is an eccentric, dempsey-brown, 0.5 x 0.3 cm mottled macule. ??The specimen is trisected and entirely submitted as (C1). (Ashley Lockwood)/[facility] End of Report [facility] 12/28/2012 21:0 9 EDT 12/31/2012 21:09 EDT Logan Paulson DO PATHOLOGY ORDER [facility]ACOBO [facility] [address] [place] [address] documented in this encounter Visit Diagnoses Not on filedocumented in this encounter Care Teams Windows Application Packager Relationship Specialty Start Date End Date Radha Magallon NP [address] [place] [address] PCP - General 02/15/12 01/14/13 documented as of this encounter
--- OUTSIDE RECORDS SUMMARY | 2024-03-08 14:23 | XMS_ITS | Encounter Summary ---
Author Organization [facility] Address [address] [place] [address] Care Team Providers Care Tungsten Tender Name Role Phone Radha Magallon NP Primary Care Provider [phone] Encounter Details Date Type Department Care Team (Late st Contact Info) Description 12/17/2012 Results Only [facility] [phone] Logan Paulson, [address] [place], [place] [id number] Social History Tobacco Use Types Packs/Day Years Used Date Smoking Tobacco: Never Assessed Sex and Gender Information Value Date Recorded Sex Assigned at Not on file Gender Identity Not on file Sexual Orientation Not on file documented as of this encounter Plan of Treatment Not on file documented as of this encounter Procedures Procedure Name Priority Date/Time Associated Diagnosis Comments SURGICAL PATHOLOGY Routine 12/17/2012 16 :02 EDT documented in this encounter Results * SURGICAL PATHOLOGY (12/17/2012 16:02 EDT) Pathology Report: SURGICAL PATHOLOGY REPORT Reports generated via electronic interface contain original data; however they are lacking the format of the original report. Caution should be taken when reading/interpreti ng unformatted reports. Name: ? MARCELO GRACE ? Accession #: ? [id number] ? : ? 1970 (Age: 42) ??M ? Collect Date: ? 12/17/2012 ? Location: ? [facility] ? Receive Date: ? 12/18/2012 ? Provider: LOGAN PAULSON DO Copy to: ? Final Pathologic Diagnosis: A. ?Skin of back, left lateral mid, shave biopsy: 1. ?Melanocytic nevus, compound lentiginous type, with unusual architectural features and mild cytologic atypia. ? - Nevus present at peripheral edge and base of shave biopsy specimen. ? B. ?? Skin of back, left mid, shave biopsy: ? 1. ?? Melanocytic nevus, junctional type, with unusual architectural features and mild-moderate ? cytologic atypia. ?- Nevus does not extend to edges of shave biopsy specimen in the plane of the sections ?examined. C. ?Skin of back, mid, shave biopsy: 1. ?Melanocytic nevus, junctional lentiginous type, with unusual architectural features and mild cytologic atypia. ? - Nevus present at peripheral edge of shave biopsy specimen. ? D. ?? Skin of back, right mid, shave biopsy: ? 1. ?? Melanocytic nevus, compound lentiginous type, with unusual architectural features and ? mild cytologic atypia. ?- Nevus present at peripheral edge and base of shave biopsy specimen. ? E. ?? Skin of back, right lateral, shave biopsy: ? 1. ?? Fibroepithelial skin tag. F. ?? Skin of shoulder, left lateral, shave biopsy: ? 1. ?? Melanocytic nevus, compound lentiginous type, with unusual architectural features and ? mild cytologic atypia. ?- Nevus does not extend to edges of shave biopsy specimen in the plane of the sections ? examined. ?? G. ?Skin of shoulder, left medial, shave biopsy: ? 1. ?? Seborrheic keratosis. ?? Microscopic Description: ? (A, D, F) The epidermis shows mild hyperplasia consisting of thin and clubbed rete ridges. ??There is a compound proliferation of melanocytes. ??The intraepidermal component consists of rare nests but is predominated by individual cells in a lentiginous pattern. ??The nests are small and located at the tips of rete ridges. ??The individual melanocytes are generally evenly spaced along the dermal-epidermal junction. ??The melanocytes are slightly enlarged and have dark nuclei. ??The dermal component consists of small nests of similar cells. ??There is abundant melanin pigment within the epidermis, stratum corneum, and dermal melanophages. ?? (B) Sections consist of a shave biopsy of skin. ??Centrally, there is mild epidermal hyperplasia associated with a poorly circumscribed intraepidermal melanocytic proliferation. ??The proliferation is of low cellular density and consists primarily individual cells with rare nest formation. ??The individual cells are unevenly spaced along the junction, but show no tendency toward confluent growth. ??A few melanocytes are noted slightly above the basal zone. The melanocytes are mildly enlarged and some have discernible nucleoli. ??The melanocytes have abundant melanin pigment, as do the adjacent keratinocytes. There is slight dermal fibroplasia with sparse chronic inflammation and melanophages. ? (C) The epidermis shows mild hyperplasia consisting of thin and clubbed rete ridges. ??There is a proliferation of melanocytes within the epidermis that consists of rare nests but is predominated by individual cells in a lentiginous pattern. ??The nests are small and located at the tips of rete ridges. ??The individual melanocytes are generally evenly spaced along the dermal-epidermal junction. ??The melanocytes are slightly enlarged and have dark nuclei. ??There is abundant melanin pigment within the epidermis, stratum corneum, and dermal melanophages. ? (E) There is a polypoid papule with a papillated epidermal surface. ??The stratum corneum is composed of a relatively normal layer of orthokeratin. ??The dermis is composed of loose fibrous connective tissue and dilated vessels. ? (G) The stratum corneum is thickened by laminated orthohyperkeratosi s. ??The epidermis is hyperplastic with papillomatosis and acanthosis. ??The keratinocytes have a basaloid appearance with round regular nuclei. ??(Dr. Dominguez)/[facility] Document reviewed and electronically signed by: BECCA DOMINGUEZ MD Report ??Date: 12/20/2012 13:50 By the signature above, the attending physician certifies that he/she has personally conducted a gross and/or microscopic examination of the described specimens and rendered or confirmed the above diagnosis. Specimen(s) Received: A. ?Left lateral mid back B. ? Left mid back C. ? Mid back D. ? Rt mid back E. ? Rt lateral back F. ? Left lateral shoulder G. ? Left medial shoulder Clinical History: ? Clinical diagnosis code: 239.2 Gross Description: ? Received in formalin labelled Marcelo Grace and left lateral mid back is a 0.8 x 0.6 cm irregular shave biopsy of dempsey-white skin. ??There is an eccentric 0.3 x 0.2 cm irregular brown black macule. ??Also received is a 0.4 x 0.4 cm irregular shave biopsy of dempsey-white skin. ??There is a slightly eccentric 0.3 x 0.2 cm ovoid brown-black macule. ??The specimen is entirely submitted as (A1)-larger shave bisected and (A2)-smaller shave bisected. Received in formalin labelled Marcelo Grace and left mid back is a 0.6 x 0.6 cm irregular shave biopsy of dempsey-white skin. ??There is an eccentric 0.4 x 0.3 cm ovoid burnett-brown macule. ??The specimen is bisected and entirely submitted as (B1). Received in formalin labelled Camber, Marcelo and mid back is a 0.7 x 0.4 cm irregular shave biopsy of dempsey-white skin. ??There is a central 0.3 x 0.2 cm ovoid burnett-brown macule. ??The specimen is bisected and entirely submitted as (C1). Received in formalin labelled Camber, Marcelo and right mid back is a 0.4 x 0.3 cm irregular shave biopsy of dempsey-white skin. ??There is an eccentric 0.2 x 0.1 cm ovoid brown macule. ??Also received is a 0.6 x 0.2 cm irregular shave biopsy of dempsey-white skin. ??There is a central 0.2 x 0.1 cm ovoid brown macule. The specimen is entirely submitted as (D1). Received in formalin labelled Camber, Marcelo and right lateral back is a 0.6 x 0.3 cm irregular shave biopsy of dempsey-white skin. ??There is a central 0.5 x 0.3 x 0.2 cm ovoid dempsey-white smooth papule. The specimen is submitted intact as (E1). ?? Received in formalin labelled Camber, Marcelo and left lateral shoulder is a 0.6 x 0.4 cm ovoid shave biopsy of dempsey-white skin. ??There is an eccentric 0.2 x 0.2 cm circular dempsey, focally burnett-brown macule. ??The specimen is bisected and entirely submitted as (F1). Received in formalin labelled Camber, Marcelo and left medial shoulder are two irregular shave biopsy of dempsey white skin averaging 0.9 x 0.7 cm. ??The specimen is entirely submitted as (G1)-one shave trisected and (G2)-the other shave trisected. ??(Damaris Longo)/[facility] End of Report JUAN JOSE LANDA 12/17/2012 16:0 2 EDT 12/18/2012 16:02 EDT Logan Paulson DO PATHOLOGY ORDER JACOBO [facility] [address] [place] [address] documented in this encounter Visit Diagnoses Not on filedocumented in this encounter Care Teams Tungsten Tender Relationship Specialty Start Date End Date Radha Magallon NP [address] [place] [address] PCP - General 02/15/12 01/14/13 documented as of this encounter
--- OUTSIDE RECORDS SUMMARY | 2024-03-08 14:23 | XMS_ITS | Encounter Summary ---
Author Organization [facility] [place] [address] Care Team Providers Care Activities Volunteer Name Role Phone Luciano Vickie Paige BECERRA Primary Care Provider Reason for Visit * Auth/Cert Specialty Diagnoses / Procedures Referred By Roselyn t Referred To Contact Diagnoses Rectal polyp RECTAL POLYP Procedures PRO EXC RECTAL TUMOR, TRANSANAL APPROACH, NOT INCL MUSCULARIS PROPRIA EXCISION RECTAL TUMOR, TRANSANAL APPROACH, PARTIAL THICKNESS (WRVU 8.13) Referral ID Status Reason Start Date Expiration Date Visits Re quested Visits Authorized [id number] 1 1 Encounter Details Date Type Department Care Team (Late st Contact Info) Description 05/11/2018 9:45 AM EDT Anesthesia Event [place] [address] Isai Land MD [facility] [place] [address] Gladys Turner MD [facility] [place] [address] Anesthesia Record Procedure Summary Procedure Name Responsible Anesthesiologist Anesthesia Start Time Anesthesia Stop Time EXCISION RECTAL TUMOR, TRANSANAL APPROACH, FULL THICKNESS (WRVU 12.13) Isai Land MD 05/11/18 0945 05/11/18 1032 Events Date Time Event Comment 05/11/2018 0931 0945 Start 0951 AN Verify 0951 An Start Data 0957 Anesthesia Ready 1031 an stop data 1031 Recovery or ICU Handoff Usha ent care was transferred to the destination unit staff after review of the patient's medical history, current anesthetic/surgical status and plan, according to the Provider Handoff Checklist. 1032 Stop Meds Name Total Midazolam 2 mg fentaNYL 25 mcg Propofol INF 367.35 mg Dexmedetomidine INF 17.67 mcg * Agents Name O2 Air N2O * Blood No blood administrations on file. Lines, Drains, and Airways Type Details Placement Removal (RETIRED) Peripheral IV Line - Single Lumen 05/07/18; 1433; median cubital vein (antecubital fossa), right; [id number] catheter system; 22 gauge; tolerated well; 06/02/21 (LDA Cleanup utility RA#[id number]); 1650 (LDA Cleanup utility RA#[id number]) 05/07/18 1433 by Chantell Barrera 06/02/21 1650 by Suman Hogue (RETIRED) Peripheral IV Line - Single Lumen 05/11/18; 0941; (left forearm); 18 gauge; intradermal injection, tolerated well; 05/11/18; 1206 05/11/18 0941 by Alphonse Carlisle RN 05/11/18 1206 by Irene Sherwood RN Incision 05/11/18; 1009; perirectal; 04/25/22 (LDA cleanup utility RA#[id number]); 1715 (LDA cleanup utility RA#[id number]) 05/11/18 1009 by Alie Owens RN 04/25/22 1715 by Gloria Mena documented in this encounter Social History Tobacco Use Types Packs/Day Years Used Date Smoking Tobacco: Never Smokeless Tobacco: Never Sex and Gender Information Value Date Recorded Sex Assigned at Not on file Gender Identity Not on file Sexual Orientation Not on file documented as of this encounter OR Notes * Anesthesia Postprocedure Evaluation - Gladys Turner MD - 05/11/2018 10:44 AM EDT [facility] Department of Anesthesiology Post-procedure Note Patient: Marcelo Pitt Procedure Summary Date Anesthesia Start Anesthesia Stop Room / Location 05/11/18 0945 1032 [facility] OR 23 / [facility] MAIN OR Procedure Diagnosis Surgeon Responsible Provider EXCISION RECTAL TUMOR, TRANSANAL APPROACH, FULL THICKNESS (WRVU 12.13) (RECTAL POLYP) Micha Reynolds MD Chinn, Christopher D, MD All Anesthesia Providers: Anesthesiologist: Isai Land MD E Commerce Merchant: Gladys Turner MD Most Recent Vitals: 05/11/18 1036 BP: Pulse: Resp: Temp: SpO2: 99% Pain Patient Location: PACU/[facility] Level of Consciousness: Awake and Alert Pain Management: Satisfactory Analgesia PONV: None Cardiovascular Status: At Baseline Respiratory Status: At Baseline Postoperative Fluid Status: Intravascular EUvolemia Possible Anesthetic Complications: NONE apparent at time of evaluation Final Primary Anesthesia Type: General (The anesthetic type performed was the same as planned.) Comments: Feels slightly nasally; pain control adequate per patient. Explained nasal trumpet placement; patient expressed understanding - in good humor. * Anesthesia Preprocedure Evaluation - Isai Land MD - 05/10/2018 2:06 PM EDT Pre-Anesthesia Evaluation for: Marcelo Pitt a 47 y.o. male. Procedure(s): EXCISION RECTAL TUMOR, TRANSANAL APPROACH, PARTIAL THICKNESS (WRVU 8.13) There are no active problems to display for this patient. No past medical history on file. No past surgical history on file. Social History Substance Use Topics ??? Smoking status: Never Smoker ??? Smokeless tobacco: Never Used ??? Alcohol use Not on file History Drug Use Not on file No Known Allergies Medications: MAR and/or home medications have been reviewed. Physical Exam: There were no vitals filed for this visit. There is no height or weight on file to calculate BMI. Airway Assessment: Mallampati: II TM distance: >3 FB Neck ROM: full Cardiovascular Assessment: cardiovascular exam normal Pulmonary Assessment: pulmonary exam normal Dental Assessment: - normal exam Misc Assessment: IV access: Peripheral line Anesthesia Plan: ASA 2 general, with a(n) intravenous induction Marcelo Pitt is a 47 y.o. 96 kg male never smoker with a hx significant for rectal mass presenting for the following procedure(s): Procedure(s): EXCISION RECTAL TUMOR, TRANSANAL APPROACH, PARTIAL THICKNESS (WRVU 8.13) Allergies: No Known Allergies Anesthesia Hx: no records NPO status: adequate Pt activity level prior to surgery/admission to hospital: METs > 4 EKG none on record Labs: none recent Plan is for prone MAC with GA backup, standard ASA monitors, and adequate IV access. ERAS as appropriate Region - Other Informed Consent: Anesthetic plan and risks discussed with patient. Plan discussed with resident. PAT Staff Note documented in this encounter Plan of Treatment Not on file documented as of this encounter Visit Diagnoses Not on filedocumented in this encounter Administered Medications Inactive Administered Medications - up to 3 most recent administrations Medication Order MAR Action Action Date Dose Rate Site dexmedetomidine (PRECEDEX) 4 mcg/mL (standard Adult & Pedi greater than 20kg) infusion (premix) CONTINUOUS PRN, Starting on Mon05/11/18 at 0956, Until Mon05/11/18 at 1032, Anesthesia Intra-op Rate/Dose Change 05/11/2018 9:59 AM EDT 0.6 mcg/kg/hr 14 mL/hr New Bag 05/11/2018 9:56 AM EDT 0.4 mcg/kg/hr 9.3 mL/hr fentaNYL 50 mcg/mL multi-dose injection PRN, Starting on Mon05/11/18 at 1005, Until Mon05/11/18 at 1032, Pain, Anesthesia Intra-op, Routine Given 05/11/2018 10:05 AM EDT 25 mcg midazolam (PF) (VERSED) 1 mg/mL multi-dose injection PRN, Starting on Mon05/11/18 at 0946, Until Mon05/11/18 at 1032, Sleep, Anesthesia Intra-op, Routine Given 05/11/2018 9:46 AM EDT 2 mg propofol (DIPRIVAN) infusion CONTINUOUS PRN, Starting on Mon05/11/18 at 0956, Until Mon05/11/18 at 1032, Anesthesia Intra-op, Routine Rate/Dose Change 05/11/2018 10:06 AM EDT 200 mcg/kg/min 111.6 mL/hr Rate/Dose Change 05/11/2018 9:59 AM EDT 250 mcg/kg/min 139 .5 mL/hr New Bag 05/11/2018 9:56 AM EDT 200 mcg/kg/min 111.6 mL/ hr documented in this encounter Care Teams Activities Volunteer Relationship Specialty Start Date End Date Vickie Wolf, MARIAM [address] [place] [address] PCP - General Family Medicine 05/07/18 05/20/22 documented as of this encounter
--- OUTSIDE RECORDS SUMMARY | 2024-03-08 14:23 | XMS_ITS | Referral Summary ---
Author Organization [facility] Address [address] [place] [address] Care Team Providers Care Program Management Intern Name Role Phone Musa Olivarez MD Primary Care Provider [phone] Social History Tobacco Use Types Packs/Day Years Used Date Smoking Tobacco: Never Assessed Interpersonal Safety Answer Date Record ed Physically Hurt Never 03/29/2020 Verbally Threaten Not on file 03/29/2020 Sex and Gender Information Value Date Recorded Sex Assigned at Not on file Gender Identity Not on file Sexual Orientation Not on file Plan of Treatment Not on file Procedures Procedure Name Priority Date/Time Associated Diagnosis Comments HEPATITIS C AB W REFLEX TO HCV RNA BY PCR Routine 09/24/2021 7:23 EST from Last 3 Months or Most Recently Relevant to Health Maintenance Results * HEPATITIS C AB W REFLEX TO HCV RNA BY PCR (09/24/2021 7:23 EST) Hep C Antibody Negative Negative 09/27/2021 11:35 EST [facility] Blood VENOUS BLOOD / Unknown 09/24/2021 7:23 EST 09/24/2021 16:34 EST Provider Outr Resulting Lab CHEMISTRY & BLOOD GAS ORDERABLES [facility] [address] [place] [address] from Last 3 Months or Most Recently Relevant to Health Maintenance Care Teams Program Management Intern Relationship Specialty Start Date End Date Musa Olivarez MD [address] [place] [address] [place] [id number] [facility] - General 01/15/13
--- OUTSIDE RECORDS SUMMARY | 2024-03-08 14:23 | XMS_ITS | Encounter Summary ---
Author Organization [facility] Address [facility] [place] [address] Care Team Providers Care Precision Honer Name Role Phone Luciano Vickie Paige BECERRA Primary Care Provider Reason for Referral * Consultation (Routine) - Closed Specialty Diagnoses / Procedures Referred By Contac t Referred To Contact Radiation Oncology Diagnoses Rectal cancer Micha Reynolds MD [facility] [place] [address] Georges Holly MD [address] [place] [address] [place] [address] Referral ID Status Reason Start Date Expiration Date V isits Requested Visits Authorized [id number] Closed Consult, Test & Treat 06/12/2018 06/12/2019 1 1 * Consultation (Routine) - Closed Specialty Diagnoses / Procedures Referred By Contac t Referred To Contact Hematology and Oncology Diagnoses Rectal cancer Micha Reynolds MD [facility] [address] [place] [address] Bright Zamorano MD [facility] [place] [address] Referral ID Status Reason Start Date Expiration Date V isits Requested Visits Authorized [id number] Closed Specialty Service Requested 06/12/2018 06/12/2019 1 1 Reason for Visit * Reason Comments Follow-up Encounter Details Date Type Department Care Team (Late st Contact Info) Description 06/11/2018 4:00 PM EDT Office Visit General Surgery at [facility] [place] [phone] Micha Reynolds MD [facility] [place] [address] Rectal cancer Social History Tobacco Use Types Packs/Day Years Used Date Smoking Tobacco: Never Smokeless Tobacco: Never Sex and Gender Information Value Date Recorded Sex Assigned at Not on file Gender Identity Not on file Sexual Orientation Not on file documented as of this encounter Last Filed Vital Signs Vital Sign Reading Time Taken Comments Blood Pressure 126/89 06/11/2018 4:31 PM EDT Pulse 51 06/11/2018 4:31 PM EDT Temperature 36.8 ??C (98.2 ??F) 06/11/2018 4:31 PM ED T Respiratory Rate - - Oxygen Saturation 99% 06/11/2018 4:31 PM EDT Inhaled Oxygen Concentration - - Weight 97.5 kg (215 lb) 06/11/2018 4:31 PM EDT Height - - Body Mass Index 29.16 05/11/2018 9:04 AM EDT documented in this encounter Progress Notes * Micha Reynolds MD - 06/11/2018 4:00 PM EDT Colorectal Surgery Outpatient Follow-up ~ Division of Colon and Rectal Surgery ~ [facility] HPI: Marcelo Pitt is a pleasant 47 y.o. male who has undergone transanal excision of a rectal polyp on 05/11/18. He returns for his post operative visit. He offers no complaints. He had minimal discomfort after surgery, and notes no further episodes of rectal bleeding. He is tolerating a regular diet and movinghis bowels regularly without difficulty. He presents to discuss his options for further therapy given the final pathology of the resected polyp. Review of Systems Constitutional: Negative for fever, weight loss, malaise/fatigue and chills. Gastrointestinal: Negative for abdominal discomfort, constipation, diarrhea and other (bleeding perrectum). All other systems reviewed and are negative. The patient's PCP is Vickie Wolf APRN. Past medical history: Patient Active Problem List Diagnosis Code ??? rectal cancer at 47; genetic counseling recommended Z91.89 Past surgical history: No past surgical history on file. Allergies: Patient has no known allergies. Medications: reviewed in the electronic medical record. No current outpatient medications on file prior to visit. No current facility-administered medications on file prior to visit. Social history: reports that has never smoked. he has never used smokeless tobacco. Family medical history: No family history on file. Physical exam: Vitals: Blood pressure 126/89, pulse 51, temperature 36.8 ??C (98.2 ??F), weight 97.5 kg (215 lb), SpO2 99 %. BMI: Body mass index is 29.16 kg/m??. General Appearance: well developed and well nourished Neuro: awake, alert and oriented to person, place and time no acute distress Psych: appropriate mood and affect Eyes: extra ocular muscles intact, pupils equally reactive to light and accomodation ENT: neck supple, no lyphadenopathy noted CV: regular rate and rhythm Resp: non-labored without adventitous sounds on auscultation Lymph: no edema noted Abdomen: soft, non-tender, and not distended, no masses or organomegaly Ext: no cyanosis Labs: reviewed. Endoscopy: reviewed. Path: reviewed, 05/14/18 DIAGNOSIS A - Distal rectum, ??polypectomy: Well differentiated adenocarcinoma arising in an tubulovillous adenoma with high ??grade dysplasia, focally invading into submucosa. Margin can [...] resection margin is focally involved by dysplasia. Imaging: reviewed. COREFO Responses 04/23/2018 06/11/2018 Incontinence Scale 13.88 0 Social Impact Scale 5.55 5.55 Frequency Scale 12.5 12.5 Stool Releated Aspects 25 8.33 Medication Scale 25 0 Total COREFO Score 13.46 3.84 The COREFO questionnaire is a validated questionnaire with 27 questions to assess colorectal functional outcome. Patients are asked to consider the two week period prior before filling out the questionnaire. Category scores range from zero to 100. A total score is calculated from the categories above, also ranging from zero to 100. A higher score represents an increased level of functional disturbance. Impression/Plan: Marcelo Pitt is a 47 y.o. 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 I discussed that consensus of our tumor board was her under go further therapy given the characteristics of his tumor, either with primary surgery or chemotherapy andradiation. I discussed the risks and benefits of both approaches, and post therapy surveillance. While I emphasized the standard of care in this case is proctectomy, which unfortunately would indicate APR due to the location of his tumor. Her understands there is an approximately 25% risk of lymph node involvement which would not be fully evaluated without surgery and that locally recurrent disease may indicate surgical intervention in the future. All of his questions were answered to his satisfaction. He will also require colonoscopy in 1 year. Micha Reynolds MD, MSc box person Division of Colon and Rectal Surgery [facility] Pager [phone] documented in this encounter Plan of Treatment Scheduled Referrals Name Type Priority Associated Diagnoses Order Schedule Referral to Hematology and Oncology Outpatient Referral Routine Rectal cancer Ordered: 06/12/2018 Referral to Radiation Oncology Outpatient Referral Routine Rectal cancer Ordered: 06/12/2018 documented as of this encounter Visit Diagnoses Diagnosis Rectal cancer Malignant neoplasm of rectum documented in this encounter Care Teams Precision Honer Relationship Specialty Start Date End Date Vickie Wolf APRN [address] [place] [address] PCP - General Family Medicine 05/07/18 05/20/22 documented as of this encounter
--- OUTSIDE RECORDS SUMMARY | 2024-03-08 14:23 | XMS_ITS | Encounter Summary ---
Author Organization [facility] [place] [address] Care Team Providers Care Outside Event Sales Specialist Name Role Phone Vickie Wolf APRN Primary Care Provider [phone] Reason for Visit * Reason Onset Date Comments Results 05/23/2018 Encounter Details Date Type Department Care Team (Late st Contact Info) Description 05/23/2018 Telephone General Surgery at [facility] [place] [phone] Micha Reynolds MD [facility] [address] [place] [address] Results Social History Tobacco Use Types Packs/Day Years Used Date Smoking Tobacco: Never Smokeless Tobacco: Never Sex and Gender Information Value Date Recorded Sex Assigned at Not on file Gender Identity Not on file Sexual Orientation Not on file documented as of this encounter Miscellaneous Notes * Telephone Encounter - Micha Reynolds MD - 05/23/2018 11:28 AM EDT Called to discuss results of EUA with biopsy of suspicious lesion in the rectum, indicating T1 adenocarcinoma. Dicussed clinical significance of close margins and need for re-excision. Will discuss at upcoming tumor board. All of patients questions were answered to his satisfaction and I will see him in clinic on 06/11. Micha Reynolds MD documented in this encounter Plan of Treatment Not on file documented as of this encounter Visit Diagnoses Diagnosis Rectal cancer Malignant neoplasm of rectum documented in this encounter Care Teams Outside Event Sales Specialist Relationship Specialty Start Date End Date Vickie Wolf APRN [address] [place] [address] PCP - General Family Medicine 05/07/18 05/20/22 documented as of this encounter
--- OUTSIDE RECORDS SUMMARY | 2024-03-08 14:23 | XMS_ITS | Encounter Summary ---
[place] [address] Care Team Providers Care Egg Processor Name Role Phone Jayson Max BECERRA Primary Care Provider [phone] Reason for Referral * Diagnostic Test (Routine) - Closed Specialty Diagnoses / Procedures Referred By Roselyn t Referred To Contact Radiology Diagnoses Rectal polyp Procedures MRI Pelvis (Rectal Cancer Staging) [place] [address] [place] [address] Referral ID Status Reason Start Date Expiration Date V isits Requested Visits Authorized [id number] Closed Specialty Service Requested 04/23/2018 06/21/2018 1 1 Reason for Visit * Reason Comments Establish Care * Consultation (Routine) - Closed Specialty Diagnoses / Procedures Referred By Contac t Referred To Contact General Surgery Diagnoses RECTAL MASS Malcolm Quiros MD [address] [place] [id number] [facility] [address] [place] [address] Referral ID Status Reason Start Date Expiration Date V isits Requested Visits Authorized [id number] Closed Consult, Test & Treat PCP Updated and/or Approved 04/09/2018 04/09/2019 10 10 Encounter Details Date Type Department Care Team (Late st Contact Info) Description 04/23/2018 8:30 AM EDT Office Visit General Surgery at [facility] [place] [address] Micha Reynolds MD [facility] [place] [id number] Rectal polyp Social History Tobacco Use Types Packs/Day Years Used Date Smoking Tobacco: Never Smokeless Tobacco: Never Sex and Gender Information Value Date Recorded Sex Assigned at Not on file Gender Identity Not on file Sexual Orientation Not on file documented as of this encounter Last Filed Vital Signs Vital Sign Reading Time Taken Comments Blood Pressure 137/88 04/23/2018 8:33 AM EDT Pulse 52 04/23/2018 8:33 AM EDT Temperature 36.7 ??C (98 ??F) 04/23/2018 8:33 AM EDT Respiratory Rate - - Oxygen Saturation 98% 04/23/2018 8:33 AM EDT Inhaled Oxygen Concentration - - Weight 96.3 kg (212 lb 6.4 oz) 04/23/2018 8:33 A M EDT Height 180.3 cm (5' 11) 04/23/2018 8:33 AM EDT Body Mass Index 29.62 04/23/2018 8:33 AM EDT documented in this encounter Progress Notes * Troy Rosy - 04/23/2018 8:30 AM EDT Colorectal Surgery Outpatient Consultation ~ Division of Colon and Rectal Surgery ~ [facility] HPI: Marcelo Pitt is a pleasant 47 y.o. male who we were asked to see by Dr. Quiros regarding Chief Complaint Patient presents with ??? Establish Care . The patient's PCP is Max Tyler APRN (Inactive). 47 y.o. male referred to colorectal surgery for endoscopically unresectable 4 cm mass in rectum. Frederick has been intermittently experiencing bright red blood per rectum for the past 1-1/2 years. He had attributed to hemorrhoid disease until 2 months ago, when he passed a large clot from his bottom. Hepresented to his primary care provider, who ordered a colonoscopy, which found a 4 x 3 cm distal rectal mass abutting the dentate line. 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 Hehas had no additional workup. He is otherwise healthy, denies changes in his stools, denies incontinence to gas, liquid stool or solid stool. He denies anal receptive intercourse. He denies weight loss or malaise. He has no family history of colon cancer, rectal cancer, ulcerative colitis, or Crohn's disease. Review of Systems Constitutional: Negative for anorexia, fever, weight loss, malaise/fatigue and chills. Gastrointestinal: Negative for abdominal discomfort, vomiting, constipation, nausea and diarrhea. All other systems reviewed and are negative. Past medical history: There is no problem list on file for this patient. No medical problems Past surgical history: No past surgical history on file. Nasal surgery Allergies: Review of patient's allergies indicates no known allergies. Medications: reviewed in the electronic medical record. No current outpatient prescriptions on file prior to visit. No current facility-administered medications on file prior to visit. Social history: reports that he has never smoked. He has never used smokeless tobacco. Family medical history: No family history on file. Patient denies a family history of: colorectal cancer, colorectal polyps, diverticular disease, Crohn disease and ulcerative colitis. Patient admits a family history of: Prostate cancer (early stage) in father . Physical exam: Vitals: Blood pressure 137/88, pulse 52, temperature 36.7 ??C (98 ??F), temperature source Oral, height 180.3 cm (5' 11), weight 96.3 kg (212 lb 6.4 oz), SpO2 98 %. BMI: Body mass index is 29.62 kg/(m^2). General Appearance: well developed and well nourished [...] and not distended, no masses or organomegaly Perineal exam: The patient was examined in the prone nora-knife position with assistance from nursing. Digital rectal exam was performed, patient had normal tone and squeeze. Mass is palpable, firm, nonmobile Rigid/flexible Sigmoidoscopy: After obtaining informed consent from the patient, and delineating the risks of flexible sigmoidoscopy including bleeding infection incomplete exam of perforation, a flexible endoscope was inserted under direct visualization and the rectum insufflated. A posterior right-sided friable mass was noted. Its measurements were consistent with that of the colonoscopy 4 by 3 cm. It encompassed one quarter of the circumference of the rectal wall. It was abutting the dentateline. It was not mobile, and had an ulcerated appearance. Ext: no cyanosis Labs: reviewed, CEA 2.9 Endoscopy: reviewed. Path: reviewed. Imaging: reviewed. COREFO Responses 04/23/2018 Incontinence Scale 13.88 Social Impact Scale 5.55 Frequency Scale 12.5 Stool Releated Aspects 25 Medication Scale 25 Total COREFO Score 13.46 The COREFO questionnaire is a validated questionnaire [...] Pitt is a 47 y.o. male with endoscopically unresectable and a large friable rectal mass, not yet proven to be adenocarcinoma. Given the high risk appearance of this mass by both digital rectal examination and flexible endoscopy, would proceed first with MRI of pelvis followed by transanal excision of the mass for a full thickness biopsy if invasion is not noted on MRI.His CEA level was drawn today and noted to be low, which is reassuring. He will need definitive tissue diagnosis prior to proceeding with any next steps. Should this mass proved to be benign, a full-t hickness transanal incision will be sufficient therapy. He will require additional screening colonoscopies in 1 year. Should this mass proved to be adenocarcinoma, he will require additional staging workup to determine the further course of therapy, which would most likely involve a total proctectomy. We explained to him the next steps of his workup, which include lab work, a pelvic MRI and a transanal excision of his rectal mass. We explained to him the risks of the procedure including bleeding, infection, changes in his continence. He is amenable to the procedure and we will schedule it after he has obtained his pelvic MRI. Micha Reynolds MD, MSc treasurer Division of Colon and Rectal Surgery [facility] Pager [phone] documented in this encounter Plan of Treatment Not on file documented as of this encounter Procedures Procedure Name Priority Date/Time Associated Diagnosis Comments CEA Routine 04/23/2018 10:31 AM EDT Rectal polyp documented in this encounter [...] AM Micha Reynolds MD IMG MRI ORDERABLES * CEA (04/23/2018 10:31 AM EDT) CEA 2.6 <=3.8 ng/mL [facility] Comment: Reference range: ??(20-69 years): Non-smoker: ??less than or equal to 3.8 ng/mL Smoker: ??less than 5.5 ng/ml Blood specimen (specimen) 04/23/2018 10:31 AM EDT 04/23/2018 10:40 AM EDT Narrative Resulting Agency Comment Spec In Lab Micha Reynolds MD CHEMISTRY ORDERABLES [facility] [place] [address] documented in this encounter Visit Diagnoses Diagnosis Rectal polyp Anal and rectal polyp Rectal polyp Anal and rectal polyp documented in this encounter Care Teams Egg Processor Relationship Specialty Start Date End Date Max Tyler APRN [address] [place] [address] PCP - General 07/20/10 05/06/18 documented as of this encounter
--- OUTSIDE RECORDS SUMMARY | 2024-03-08 14:23 | XMS_ITS | Encounter Summary ---
Author Organization [facility] [place] [address] Care Team Providers Care Line Rider Name Role Phone Vickie Wolf APRN Primary Care Provider Encounter Details Date Type Department Care Team (Late st Contact Info) Description 06/13/2018 Telephone Radiation Oncology at [address] [address] Constantin Porter Social History Tobacco Use Types Packs/Day Years Used Date Smoking Tobacco: Never Smokeless Tobacco: Never Sex and Gender Information Value Date Recorded Sex Assigned at Not on file Gender Identity Not on file Sexual Orientation Not on file documented as of this encounter Miscellaneous Notes * Telephone Encounter - Constantin Porter - 06/13/2018 12:52 PM EDT Radiation Oncology New Patient Scheduling Note I called Marcelo to inform him that Dr. Reynolds has referred him to see Dr. Holly for a radiation new patient consultation. I have confirmed his appointments on Monday 06/25 will include a 30 minute visit at 10:30 to see our clinic nurse, followed by a [address] Holly. I confirmed our address and answered all of his questions, and our contact information should any further questions or concerns arise. documented in this encounter Plan of Treatment Not on file documented as of this encounter Visit Diagnoses Not on filedocumented in this encounter Care Teams Line Rider Relationship Specialty Start Date End Date Vickie Wolf APRN [address] [place] [address] [address] [place] [address] PCP - General Family Medicine 05/07/18 05/20/22 documented as of this encounter
--- OUTSIDE RECORDS SUMMARY | 2024-03-08 14:23 | XMS_ITS | Encounter Summary ---
Author Organization [facility] [place] [address] Care Team Providers Care Bilingual Trainer Name Role Phone LisandroVickie zarate MARIAM Primary Care Provider Encounter Details Date Type Department Care Team (Late st Contact Info) Description 05/29/2018 Multidisciplinary Ca re Committee [place] [address] Andrea Kamara MD [facility] [place] [address] Social History Tobacco Use Types Packs/Day Years Used Date Smoking Tobacco: Never Smokeless Tobacco: Never Sex and Gender Information Value Date Recorded Sex Assigned at Not on file Gender Identity Not on file Sexual Orientation Not on file documented as of this encounter Progress Notes * Andrea Kamara MD - 05/29/2018 3:01 PM EDT Date of Rectal Cancer MDT Discussion Date: 05/29/2018 Physicians Attending: Diane Kamara M Wilson, Lona Hardy Brooks (alt - Med Onc), Delio Roblero and Anjum Physician Presenter: Marta Reynolds Colonoscopy Report Reviewed: Yes Rectal Cancer MRI Reviewed: Yes Location and Pathology of Rectal Primary: At dentate line. 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 Location and Pathology of Synchronous Lesions: hyperplastic polyp in the sigmoid colon Presence of Metastatic Lesions: CTs pending Pathology of Metastatic Lesions (If present): Not Applicable Rectal Cancer MDT Treatment Evaluation and Recommendation Summary Tumor Location in the Rectum: Lower Third Sphincter Involvement: Yes Pretreatment (clinical) [place] Joint Committee on Cancer Stage: [id number]/[id number] Pretreatment circumferential resection margin status: Involved CEA Level: 10/06 Neoadjuvant Therapy Recommendation: None Type and duration of Neoadjuvant Therapy Recommendation: N/A Anticipated Date and Type of Surgical Procedure: APR versus adjuvant chemoradiation + chemotherapy to push for a cCR Clinical Research Study Eligibility and/or Enrollment: No documented in this encounter Plan of Treatment Not on file documented as of this encounter Visit Diagnoses Not on filedocumented in this encounter Care Teams Bilingual Trainer Relationship Specialty Start Date End Date Vickie Wolf APRN [address] [place] [address] PCP - General Family Medicine 05/07/18 05/20/22 documented as of this encounter
--- OUTSIDE RECORDS SUMMARY | 2024-03-08 14:23 | XMS_ITS | Encounter Summary ---
Author Organization [facility] Address [address] [place] [address] Care Team Providers Care Jack Spinner Name Role Phone Musa Olivarez MD Primary Care Provider [phone] Encounter Details Date Type Department Care Team (Late st Contact Info) Description 09/24/2021 Lab Requisition [facility] Pathology & Laboratory Medicine - [address] [address] Outr Resulting Lab, Provider Social History Tobacco Use Types Packs/Day Years [...] RNA BY PCR Routine 09/24/2021 7:23 EST documented in this encounter Results * HEPATITIS C AB W REFLEX TO HCV RNA BY PCR (09/24/2021 7:23 EST) Hep C Antibody Negative Negative 09/27/2021 11:35 EST [facility] Blood VENOUS BLOOD / Unknown 09/24/2021 7:23 EST 09/24/2021 16:34 EST Provider Outr Resulting Lab CHEMISTRY & BLOOD GAS ORDERABLES [facility] [address] [place] [address] documented in this encounter Visit Diagnoses Not on filedocumented in this encounter Care Teams Jack Spinner Relationship Specialty Start Date End Date Musa Olivarez MD [address] [place] [address] PCP - General 01/15/13 documented as of this encounter
--- OUTSIDE RECORDS SUMMARY | 2024-03-08 14:23 | XMS_ITS | Encounter Summary ---
Author Organization [facility] [place] [address] Care Team Providers Care Bronc Breaker Name Role Phone LisandroVickie zarate Paige BECERRA Primary Care Provider Reason for Referral * Consultation (Routine) - Closed Specialty Diagnoses / Procedures Referred By Roselyn laurent Referred To Contact Radiation Oncology Diagnoses Rectal cancer Procedures Simulation for Radiation Therapy Planning PRG RADIATION THERAPY PLAN COMPLEX PRG SPECIAL RADIATION TREATMENT PRG SET RADIATION THERAPY FIELD COMPLEX PRG RADIATION TREATMENT AID(S) COMPLX CHG RADN PHYSICS CONSULT SPECIAL PRG SET RADIATION THERAPY FIELD 3D RECON PRG RESPIRATORY MOTION MANAGEMENT PLANNING PRG BASIC RADIATION DOSIMETRY CALCULATION PRG SET RADIATION THERAPY FIELD SIMPLE CHG RADN RX DELIVERY COMPLX =<[address] GUIDE FOR PLACEMENT OF RADIATION THERAPY FOWLER CHG RADN PHYSICS CONSULT CONTINUING PRG RADIATION MANAGEMENT, 5 TREATMENTS RADIOLOGY PORT FILM(S) Georges Holly MD [address] [place] [address] [place] [address] [address] Rad Onc Office [address] [place] [phone] Referral ID Status Reason Start Date Expiration Date V isits Requested Visits Authorized [id number] Closed Consult, Test & Treat 06/13/2018 06/13/2019 1 1 Encounter Details Date Type Department Care Team (Late st Contact Info) Description 06/13/2018 Orders Only Radiation Oncology at [address] [phone] Georges Holly MD [address] [place] [address] DR RADIATION ONCOLOGY [place], [place] [id number] Rectal cancer Social History Tobacco Use Types Packs/Day Years Used Date Smoking Tobacco: Never Smokeless Tobacco: Never Sex and Gender Information Value Date Recorded Sex Assigned at Not on file Gender Identity Not on file Sexual Orientation Not on file documented as of this encounter Plan of Treatment Scheduled Orders Name Type Priority Associated Diagnoses Orde r Schedule Simulation for Radiation Therapy Planning Procedures Routine Rectal cancer Ordered: 06/13/2018 documented as of this encounter Visit Diagnoses Diagnosis Rectal cancer Malignant neoplasm of rectum documented in this encounter Care Teams Bronc Breaker Relationship Specialty Start Date End Date Vickie Wolf APRN [address] [place] [address] PCP - General Family Medicine 05/07/18 05/20/22 documented as of this encounter
--- OUTSIDE RECORDS SUMMARY | 2024-03-08 14:23 | XMS_ITS | Encounter Summary ---
Author Organization [facility] Address [address] [place] [address] Care Team Providers Care Software Client Architect Name Role Phone Musa Olivarez MD Primary Care Provider [phone] Encounter Details Date Type Department Care Team (Late st Contact Info) Description 09/24/2021 Lab Requisition [facility] Pathology & Laboratory Medicine - [address] [address] Outr Resulting Lab, Provider Social History Tobacco [...] Procedure Name Priority Date/Time Associated Diagnosis Comments HIV 1/2 ANTIGEN AND ANTIBODY, 4TH GENERATION Routine 09/24/2021 7:23 EST documented in this encounter Results * HIV 1/2 ANTIGEN AND ANTIBODY, 4TH GENERATION (09/24/2021 7:23 EST) HIV 1 and 2 Antibody/p24 Antigen, 4th Generation Negative Negative 09/27/2021 11:08 EST [facility] Comment:If acute HIV-1 infec tion is suspected in a high risk patient, submit plasma specimen for HIV-1 RNA quantitation test. Blood VENOUS BLOOD / Unknown 09/24/2021 7:23 EST 09/24/2021 16:34 EST Narrative [facility] - 09/27/2021 11:08 EST Fourth Generation assay performed on the Siemens Centaur XPT. Provider Outr Resulting Lab IMMUNOLOGY A ND SEROLOGY ORDERABLES [facility] [address] [place] [address] documented in this encounter Visit Diagnoses Not on filedocumented in this encounter Care Teams Software Client Architect Relationship Specialty Start Date End Date Musa Olivarez MD [address] [place] [address] PCP - General 01/15/13 documented as of this encounter
--- OUTSIDE RECORDS SUMMARY | 2024-03-08 14:23 | XMS_ITS | Encounter Summary ---
[place] [address] Care Team Providers Care Production Editor Name Role Phone LisandroVickie zarate Paige BECERRA Primary Care Provider Reason for Referral * Consultation (Routine) - Specialty Diagnoses / Procedures Referred By Contac t Referred To Contact Diagnoses Rectal cancer Bright Zamorano MD [facility] [place] [address] Referral ID Status Reason Start Date Expiration Date V isits Requested Visits Authorized [id number] Second Opinion 06/15/2018 12/12/2018 1 1 * Consultation (Urgent) - Closed Specialty Diagnoses / Procedures Referred By Contac t Referred To Contact Hematology and Oncology Diagnoses Rectal cancer Bright Zamorano MD [facility] [place] [address] [facility] [address] [place] [address] Referral ID Status Reason Start Date Expiration Date V isits Requested Visits Authorized [id number] Closed Consult, Test & Treat 06/15/2018 06/15/2019 1 1 Reason for Visit * Consultation (Routine) - Closed Specialty Diagnoses / Procedures Referred By Contac t Referred To Contact Hematology and Oncology Diagnoses Rectal cancer Micha Reynolds MD [facility] [address] [place] [address] Bright Zamorano MD [facility] [place] [address] Referral ID Status Reason Start Date Expiration Date V isits Requested Visits Authorized [id number] Closed Specialty Service Requested 06/12/2018 06/12/2019 1 1 Encounter Details Date Type Department Care Team (Late st Contact Info) Description 06/15/2018 1:00 PM EDT Office Visit Hematology/Oncology at [address] [phone] Bright Zamorano MD [facility] [place] [address] Rectal cancer Social History Tobacco Use Types Packs/Day Years Used Date Smoking Tobacco: Never Smokeless Tobacco: Never Sex and Gender Information Value Date Recorded Sex Assigned at Not on file Gender Identity Not on file Sexual Orientation Not on file documented as of this encounter Last Filed Vital Signs Vital Sign Reading Time Taken Comments Blood Pressure 140/93 06/15/2018 1:01 PM EDT Pulse 77 06/15/2018 1:01 PM EDT Temperature 36.6 ??C (97.9 ??F) 06/15/2018 1:01 PM ED T Respiratory Rate 18 06/15/2018 1:01 PM EDT Oxygen Saturation 99% 06/15/2018 1:01 PM EDT Inhaled Oxygen Concentration - - Weight 95.9 kg (211 lb 6.4 oz) 06/15/2018 1:01 P M EDT Height 181.5 cm (5' 11.46) 06/15/2018 1:01 PM E DT Body Mass Index 29.11 06/15/2018 1:01 PM EDT documented in this encounter Progress Notes * Bright Zamorano MD - 06/15/2018 1:00 PM EDT Subjective: Patient ID: Marcelo Pitt is a 47 y.o. male. Problem List: 1. Rectal cancer A. Presented with 6 month h/o intermittent BRBPR Colonoscopy to cecum 03/27/18 - about 4 x 2.5-3 cm mass in distal rectum near dentate line, lobulated and pendunculated, unable to fit snare over, multiple biopsies taken with cold forceps. Several sessile 1 cm areas of irregular mucosa immediately abutting the mass. Small 0.3 cm pedunculated polyp of sigmoid colon, removed with hot snare. Path - A. COLON, SIGMOID, POLYP, BIOPSY: Hyperplastic polyp. B. RECTUM, MASS, BIOPSY: -Superficial fragments of tubulovillous adenoma. See comment. Comment: The histologic findings of the rectal mass (specimen B) were discussed with Dr. Quiros on 1010 03/28/2018. B. MRI pelvis 05/07/18 - FINDINGS: TUMOR: Distance from caudal tumor margin to anal verge: Approximately 2 to 3 cm Distance from caudal tumor margin to top of anal sphincter: The lesion abuts the anal sphincter Relationship to puborectal sling: Abuts Craniocaudal tumor length: 3.5cm Location: 7 o?clock to 12:00 (series 7, image 32) Morphology: Polypoid lesion with broad base which exhibits enhancement ?? EXTRAMURAL INVASION & T CATEGORY: Depth of extramural spread: None T category: T1/T2. The lesion invades submucosa and abuts but does not traverse the muscularis propria. LYMPH NODES, VENOUS INVASION AND TUMOR DEPOSITS: Morphologically suspicious mesorectal lymph nodes: [Recommended size threshold is 8mm short axis]: None Suspicious extramesorectal lymph nodes: None Suspicious HUBER lymph nodes?: None Extramural venous invasion: Absent ?? OTHER FINDINGS: Small bowel: Normal Reproductive structures: Normal Osseous structures: No marrow signal abnormality IMPRESSION 1. Rectal cancer T category T1/T2; details above. Transanal excision 05/11/18 Path - A - Distal rectum, ??polypectomy: Well differentiated [...] resection margin is focally involved by dysplasia. 2. Multiple skin lesions removed around 2012, ?melanoma. We will try to obtain path report. 3. S/p vasectomy HPI Mr. Pitt is seen for evaluation and management of rectal cancer. The history is summarized above. On presentation today, he is accompanied by his girlfriend Liya and is father Robson. He is feeling well overall. His appetite is good and he denies weight loss. He has not had any blood in the stool since his surgery. His energy level and strength are good. Soc Hx: , lives in [place], [place] Tob - Never Etoh - A couple of drinks per day. 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 Has BRCA mutation Sibs - Brother with h/o CVA. Sister in good health. Children - None Mat aunt - 3 cancers, including breast and ovarian cancer, and found to be BRCA mutation positive Review of Systems Constitutional: Negative for activity change, appetite change, fatigue, fever and unexpected weightchange. HENT: Negative. Respiratory: Negative. Cardiovascular: Negative. Gastrointestinal: Negative. Genitourinary: Negative. Musculoskeletal: Negative. Skin: Negative. Neurological: Negative. Hematological: Negative. Psychiatric/Behavioral: Negative. Objective: Physical Exam Constitutional: He is oriented to person, place, and time. He appears well- developed and well-nourished. No distress. HENT: Head: Normocephalic and atraumatic. Mouth/Throat: Oropharynx is clear and moist. No oropharyngeal exudate. Eyes: No scleral icterus. Cardiovascular: Normal rate and regular rhythm. Pulmonary/Chest: Effort normal. No respiratory distress. He has no wheezes. He has no rales. Abdominal: Soft. He exhibits no distension and no mass. There is no tenderness. There is no guarding. Genitourinary: Genitourinary Comments: Rectal exam - deferred Musculoskeletal: He exhibits no edema. Lymphadenopathy: He has no cervical adenopathy. He has no axillary adenopathy. Right: No supraclavicular adenopathy present. Left: No supraclavicular adenopathy present. Neurological: He is alert and oriented to person, place, and time. Coordination normal. Skin: Skin is warm and dry. No rash noted. Psychiatric: He has a normal mood and affect. His behavior is normal. Vitals reviewed. CEA 04/23/18 2.6 Assessment and Plan: Mr. Pitt is a 47 to male seen for evaluation and management of rectal cancer. He had a h/o intermittent BRBPR attributed to hemorrhoids but in 02/12 had an episode of increased bleeding in which he passed a moderate amount of clot and red blood and her presented to his PCP. A colonoscopy was recommended and performed by Dr. Quiros on 03/27/18. A pedunculated lobulated mass, measuring about 4 x 3 cm was seen in the distal rectum, concerning for neoplasm. Biopsies were takenand the pathology showed superficial fragments of tubulovillous adenoma. A small polyp was removed from the sigmoid colon and the pathology from this showed a hyperplastic polyp. He was referred to Dr. Micha Reynolds in Colorectal Surgery for consideration of transanal excision. An MRI of the pelvis was performed on 05/07/18. The tumor was 3.5 cm in craniocaudal dimension withthe distal edge 2-3 cm from the anal verge, abutting the anal sphincter. The lesion was noted to invade the submucosa and abut but did not traverse the muscularis propria, T1/2. No suspicious LNs or v enous invasion were seen. On 05/11/18 a transanal excision was performed. The pathology is above - well differentiated adenocarcinoma arising in a tubulovillous adenoma with high grade dysplasia, focally invading into submucosa, T1. The deep resection margin was negative, 0.2 cm from the tumor. The lateral mucosal resection margin was focally positive for dysplasia. I spoke with Dr. Reynolds who tells me that there was a small area of residual disease abutting large hemorrhoids and invading the sphincter complex. He feels this is a T2 primary. His case was presented at [facility] and he met with Dr. Reynolds following the procedure. Further intervention was felt to be indicated and options were discussed. He was told that the standard ofcare would be definitive resection. Because this would require an APR in his case, he declined surgery and opted for chemo/RT. He is scheduled to see Dr. Holly on 06/25 and he will determine the timing of therapy. Concurrentwith radiation, we would plan to give oral capecitabine. We reviewed that this is taken twice dailyon days of radiation. The dose in him would be 1800 mg PO bid. We reviewed potential side effects including nausea and vomiting, stomatitis, diarrhea, dehydration, myelosuppression with associated risks of bleeding and infection, fatigue, hand-foot syndrome, angina/DC, perineal skin reaction and others. He was given an informational handout regarding capecitabine and we will start the prior authorization process. He has not had a staging CT c/a/p. Although this is early stage disease, I think it is reasonable to get a baseline exam and I will order that. If that showed evidence of metastatic disease, the treatment options and prognosis would be different. The other question, assuming no evidence of metastatic disease, is whether there is a role for further post-operative chemotherapy. In patients with pT1-2, N0 disease, this would not be recommended but with N+ disease this would be standard of care. Without definitive surgery, the dana status would not be known. Dr. Reynolds estimated a 25% risk of dana involvement. Given his young age and otherwise excellent health, I think it is reasonable to consider this. Of note, he is going to seek a second opinion at [facility] and we will see what their thoughts are. I will ask that IHC for MMR proteins be done on the pathology specimen. This is indicated to evaluate for possible Matias syndrome. In addition, his mother is known to be a BRCA carrier and a referralwill be made to our Familial Cancer Program. He had some skin lesions removed from his back severalyears ago and mentioned the possibility of melanoma although that is not clear. We will call for that path report. * Zelda Richmond RN - 06/15/2018 1:00 PM EDT MEDICAL ONCOLOGY INITIAL NURSING ASSESSMENT ADVANCE DIRECTIVES: In [facility] [ ] Has documents [ ] Will bring in [ ] IF NO: Advance Directive pamphlet provided : Will see SW at first visits Referral to Care Management : PRESENTING SYSTEMS and PATHOLOGY: Blood in stool, saw PCP, [place] REVIEW OF SYSTEMS: See Dr. Zamorano's note Prior Radiotherapy: no[ X ] Yes[ ]Site Date Facility Prior Chemotherapy: no[ X] Yes[ ] Drug: Oncologist- LastTreatment: NO: YES: Claustrophobia or requires sedation for MRIs X Allergy to CT or MRI contrast agent or iodine or shellfish X Diabetic and on metformin X Metal in body, implanted device, worked with metal, body piercings,braces X- has welded/ no problem Dentures or hearing device X Pacemaker X Difficulty breathing while lying flat X Kidney problems/creatinine X Balance difficulty: [ X]no [ ]yes At risk for fall: [ X] no [ ] yes If yes, actions implemented to prevent fall. Patient/family instructed to avoid independent ambulation. Use wheelchair and ask for assistance of staff while in the clinic. ADL [X] no limits [ ] needs dressing assistance [ ] needs meal assistance Assistive device:[ X ]none [ ]cane [ ]walker [ ]wheelchair [ ]other: explain PAIN ASSESSMENT: [ X ] out of 10 Location: Description: [ ] Dull [ ] Sharp [ ] Burning [ ] Throbbing [ ] Radiating [ ] Continuous [ ]Intermittent Aggravating Factors: [ ] Movement [ ] Position [ ]Immobility [ ]Other Alleviating Factors: [ ]Medication [ ] Positioning [ ] Other Current Pain Management Plan: [ ]Satisfied [ ] Not satisfied SOCIAL ASSESSMENT: See [facility] social assessment information entered. Support Systems: Family- GF-Liya, Dad Robson, Mom Laverne transportation plan: [X]private vehicle [ ] RCT needs Social Work referral [ ] Unknown at this time needs Social Work referral Barriers to treatment: Referrals/Interventions: LEARNING STYLE: Visual and verbal, wants written material and verbal discussion. TEACHING: __ [facility] ???Chemotherapy and You?? and folder given _X_ Specific chemotherapy literature provided and reviewed with patient documented in this encounter Plan of Treatment Scheduled Orders Name Type Priority Associated Diagnoses Orde r Schedule Specimen to Pathology Additional Testing Pathology/Cytol ogy Routine Rectal cancer Ordered: 06/15/2018 Scheduled Referrals Name Type Priority Associated Diagnoses Order Schedule Referral to Familial Cancer Outpatient Referral Routine Rectal cancer Ordered: 06/15/2018 Referral to Hematology and Oncology Outpatient Referral Routine Rectal cancer Ordered: 06/15/2018 documented as of this encounter Procedures Procedure Name Priority Date/Time Associated Diagnosis Comments SURGICAL PATHOLOGY SCAN 12/17/2012 12:00 AM EDT documented in this encounter Results * SCAN DOC: SURGICAL PATHOLOGY (12/17/2012 12:00 AM EDT) Narrative 12/17/2012 12:00 AM EDT Ordered by an unspecified provider. Scanning Provider MEDIA MGR SCAN EXT O RDR/RSLT documented in this encounter Visit Diagnoses Diagnosis Rectal cancer Malignant neoplasm of rectum documented in this encounter Care Teams Production Editor Relationship Specialty Start Date End Date Vickie Wolf, [employer] STUDIES PROFESSOR [address] [place] [address] PCP - General Family Medicine 05/07/18 05/20/22 documented as of this encounter
--- OUTSIDE RECORDS SUMMARY | 2024-03-08 14:23 | XMS_ITS | Encounter Summary ---
Author Organization [facility] Address [address] [place] [address] Care Team Providers Care Sawmilling Operator Name Role Phone Musa Olivarez MD Primary Care Provider [phone] Encounter Details Date Type Department Care Team (Latest Contact Info) Description 03/27/2018 15:55 EDT - 03/27/2018 23:59 EDT Hospital Encounter [address] [address] Unknown, Provider, Discharge Disposition: Home or Self Care Social History Tobacco Use Types Packs/Day Years Used Date Smoking Tobacco: Never Assessed Sex and Gender Information Value Date Recorded Sex Assigned at Not on file Gender Identity Not on file Sexual Orientation Not on file documented as of this encounter Discharge Disposition Disposition Code Departure Means Destination Home or Self Longterm documented in this encounter Plan of Treatment Not on file documented as of this encounter Visit Diagnoses Not on filedocumented in this encounter Care Teams Sawmilling Operator Relationship Specialty Start Date End Date Musa Olivarez MD [address] [place] [id number] PCP - General 01/15/13 documented as of this encounter
== END 2024-03-08 14:13 | disposition home or self-care (01) ==
LOC: LBO 14:20
PROVIDERS: PCP Family Medicine; Visit Provider Family Medicine
DX: Z00.00 Encounter for general adult medical examination without abnormal findings (principal); E78.2 Mixed hyperlipidemia; Z13.6 Encounter for screening for cardiovascular disorders
CPT/HCPCS: 36415; 80053; 80061

== ENCOUNTER 2024-11-29 21:34 | Outpatient (REF) | payer BC, SELFPAY ==
[2024-11-29 21:59] LABS: BUN 14 mg/dL (7-18); CREATININE 1.1 mg/dL (0.70-1.30); Calcium 9.4 mg/dL (8.5-10.1); Calculated LDL 155 mg/dL (<100); Chloride 103 mmol/L (98-107); Cholesterol 228 mg/dL (<200); Estimated GFR 80.77 (mL/min/1.73m2); Glucose 84 mg/dL (74-106); HDL Cholesterol 42 mg/dL (>or=40); Sodium 140 mmol/L (136-145); Triglyceride 158 mg/dL (<150)
== END 2024-11-29 21:35 | disposition home or self-care (01) ==
LOC: LBN 21:34
PROVIDERS: PCP Family Medicine; Visit Provider Family Medicine
DX: Z12.5 Encounter for screening for malignant neoplasm of prostate (principal); I10 Essential (primary) hypertension; Z13.6 Encounter for screening for cardiovascular disorders
CPT/HCPCS: 80048; 80061; 84153

== ENCOUNTER 2024-12-17 01:20 | Outpatient (CLI) | payer BC, SELFPAY ==
--- NOTE | 2024-12-17 14:00 | DI.MRI_ITS ---
Exam(s) MR PELVIS WO/W EXAM: MR PELVIS WO/W CLINICAL HISTORY: ? recurrent hernia,meshoma,mesh inflam COMPARISON: No exams were available for comparison FINDINGS: SOFT TISSUES: There are bilateral fat containing inguinal hernias. There are no bowel loops in the i nguinal canals. There is no abnormal signal related to the left inguinal hernia. On the right side there is abnormal enhancement in the inguinal canal extending from the internal inguinal ring caudall y for distance of 6 cm. There does not appear to be a ring-enhancing fluid collection within the ing uinal canal and there is no abnormal mass at the level the internal inguinal ring. No abnormal signa l or enhancement in the adjacent musculature. Both testicles are intrascrotal and of normal and appr oximately equal size. Urinary bladder wall is uniformly thickened possibly related to under distension versus cystitis. Th ere is no gas in the bladder lumen. Prostate size upper normal. Seminal vesicles unremarkable. No obturator adenopathy nor other intrap elvic adenopathy. No evidence of intrapelvic more extrapelvic muscular atrophy. No abnormality at t he hamstrings conjoined tendon insertions nor within the other musculature around the pelvis and hips . GI: No abnormally dilated bowel loops. Partially included appendix appears unremarkable. No evidence of obvious appendicitis nor sigmoid diverticulitis. OSSEOUS: There is no abnormal intraosseous signal in the bones of the pelvis and hips. No abnormal s ignal around the sacroiliac joints nor in the sacrum and sacral canal. No significant degenerative c hanges in the hips. No evidence of avascular necrosis nor stress fractures in the hips LYMPH NODES: There is no lymphadenopathy in the pelvis and inguinal regions. IMPRESSION: Abnormal signal and enhancement over length of 6 cm in the right inguinal canal without a distinct ma ss nor fluid collection therein. Possibly related to granulation tissue versus inflammatory findings. There is, however, no distinct fluid collection at this level. DATA REPOSITORY:
[2024-12-17] MEDS: Gadoterate meglumine 20 ML SYRINGE IVP (15:13)
[2024-12-17] MEDS: Normal Saline Flush 10 ML SYR IJ (15:14)
--- NOTE | 2024-12-17 18:30 | DI.VRAD_ITS ---
PROCEDURE INFORMATION: Exam: MR Pelvis Without and With Contrast Exam date and time: 12/17/2024 2:58 PM Age: 54 years old Clinical indication: Pelvic pain; Prior surgery; Surgery date: 6+ months; Surgery type: R inguinal hernia surg x 1 yr ago; Persistent R groin pain TECHNIQUE: Imaging protocol: Magnetic resonance imaging of the pelvis without and with contrast. Contrast material: DOTAREM; Contrast volume: 20 ml; Contrast route: INTRAVENOUS (IV); COMPARISON: CT ABDOMEN/PELVIS 09/20/2022 2:26 PM FINDINGS: Intestine: The rectum is collapsed and unremarkable. Mild sigmoid colon diverticulosis noted. Intraperitoneal space: No free fluid. Urinary bladder: Collapsed and unremarkable. Reproductive: Unremarkable prostate. Normal penis. Normal testicles. No scrotal hydrocele. Concentrated varices are noted in the pelvis between the urinary bladder and seminal vesicles, superior to the prostate. The complex is bilateral. See advertising account representative coronal image 21 series 5001 and sagittal images 27 and 20 series 2001. Lymph nodes: No enlarged nodes. Bones/joints: There are no suspicious marrow lesions or sites of marrow edema. Red marrow is present throughout the visualized spine and pelvis. Red marrow is also noted in the proximal femurs. Marrow signal remains greater than adjacent disc signal. Soft tissues: Negative for inguinal or femoral hernia. Prominent fat is observed in the left inguinal canal. Mildly thickened curvilinear tissues are present at the proximal right inguinal canal, likely scar tissue from previous surgery. There are no fluid collections in the inguinal canals. IMPRESSION: 1. No inguinal hernia. 2. No abscess or fluid collection. 3. Concentrated varices in the pelvis, suggesting venous reflux/incompetence in the inferior vesical veins and/or the internal iliac veins. Consider male pelvic congestion syndrome. 4. Prominent red marrow. Correlate for possible anemia or other blood dyscrasia. Dictated and Authenticated by: Nolan Perez MD. Orderin Janis Bernard MD
== END 2024-12-17 01:40 ==
LOC: DI 01:20
PROVIDERS: PCP Family Medicine; Visit Provider Student in an Organized Health Care Education/Training Program
DX: K42.9 Umbilical hernia without obstruction or gangrene (principal)
CPT/HCPCS: 72197

== ENCOUNTER 2025-03-12 18:53 | Outpatient (REF) | payer BC, SELFPAY ==
[2025-03-12 22:10] LABS: Abs Immature Grans 0.04 10^3/uL (0.0-0.06); HCT 50.8 % (40.0-50.0); HGB 16.9 g/dL (13.5-17.5); Immature Grans % 0.4 %; MCH 30.8 pg (27.0-33.0); MCHC 33.3 % (32.0-36.0); MCV 93 fL (80-95); MPV 11.2 fL (8.0-11.0); Platelet Count 318 10^3/uL (130-400); RBC 5.49 10^6/uL (4.36-5.78); RDW 12.8 % (11.8-14.1); RDW-SD 44.0 fL; WBC 9.75 10^3/uL (4.4-10.8)
[2025-03-12 22:25] LABS: ALT 61 U/L (16-63); AST 28 U/L (15-37); Albumin 3.9 g/dL (3.4-5.0); Alkaline Phosphatase 101 U/L (46-116); Anion Gap 12.3 mmol/L (3-11); BUN 19 mg/dL (7-18); Bilirubin, Total 0.5 mg/dL (0.2-1.0); CO2 25.7 mmol/L (21.0-32.0); Calcium 9.6 mg/dL (8.5-10.1); Chloride 107 mmol/L (98-107); Estimated GFR 72.76 (mL/min/1.73m2); Glucose 79 mg/dL (74-106); Potassium 4.5 mmol/L (3.5-5.1); Sodium 145 mmol/L (136-145); Total Protein 7.0 g/dL (6.4-8.2)
[2025-03-14 08:35] LABS: Lyme Ab w Rflx to Lyme Confirm Negative (Negative)
[2025-03-16 17:28] LABS: B. miyamotoi PCR Negative (Negative); Babesia divergens/MO-1 Negative (Negative); Ehrlichia muris eauclairensis Negative (Negative)
== END 2025-03-12 18:54 | disposition home or self-care (01) ==
LOC: LBN 18:53
PROVIDERS: PCP Family Medicine; Visit Provider Family Medicine
DX: Z00.00 Encounter for general adult medical examination without abnormal findings (principal); L30.9 Dermatitis, unspecified
CPT/HCPCS: 80053; 87798; 85025; 86618